=== PATIENT | male | born 1950 | race Caucasian/White ===

== ENCOUNTER → 2017-07-28 | Outpatient (CLI) | payer OTHER ==
[~2017-07-28] MED LIST: IOPAMIDOL (ISOVUE-300) 100 ML BTL ONE
== END ==
LOC: FIMAGING 17:06
PROVIDERS: ATTEND Internal Medicine Hematology & Oncology
DX: D37.2 Neoplasm of uncertain behavior of small intestine (principal); I81 Portal vein thrombosis
CPT/HCPCS: 71260; 74177; Q9967

== ENCOUNTER → 2017-08-04 | Outpatient (CLI) | payer OTHER | LOC: FIMAGING 09:43 → EDSTATUS 09:44 | PROVIDERS: ATTEND Surgery | DX: Z45.2 Encounter for adjustment and management of vascular access device (principal); C17.0 Malignant neoplasm of duodenum ==

== ENCOUNTER 2017-10-04 00:23 | Inpatient (IN) | payer OTHER ==
--- NOTE | 2017-10-04 00:43 | EDPHY ---
H & P Stated Complaint: N/V Time Seen by Provider: 10/04/17 00:43 HPI/ROS: HPI CHIEF COMPLAINT: Nausea and vomiting HISTORY OF PRESENT ILLNESS: This patient very pleasant 67-year-old male, he has a history of colon cancer status post partial colectomy, additionally he is currently undergoing treatment for duodenal cancer and getting chemotherapy. Dr. Víctor Dominguez is his oncologist. He presents emergency room with nausea vomiting this evening. He last received chemo over 2 and half weeks ago. He has not had a fever. He denies any chest pain or shortness of breath. He was able to eat dinner tonight however has had some vomiting since then. He tried taking Compazine at home multiple doses however would vomit them up. Additionally try to have small sips of water and continued to have vomiting. He states the 4th time he vomited was rather dark. He did not see any blood. He denies any significant abdominal pain chest pain or shortness of breath. He spoke with his oncologist was referred to the emergency room. Past Medical History: Colon cancer, duodenal cancer Past Surgical History: colon resection Social History: Denies daily use drugs alcohol tobacco. Family History: Noncontributory ROS REVIEW OF SYSTEMS: A comprehensive 10 point review of systems is otherwise negative aside from elements mentioned in the history of present illness. Exam Constitutional appears well nontoxic no acute distress, triage nursing summary reviewed, vital signs reviewed, awake/alert. Eyes normal conjunctivae and sclera, EOMI, PERRLA. HENT normal inspection, atraumatic, moist mucus membranes, no epistaxis, neck supple/ no meningismus, no raccoon eyes. Respiratory clear to auscultation bilaterally, normal breath sounds, no respiratory distress, no wheezing. Cardiovascular rate normal, regular rhythm, no murmur, no edema, distal pulses normal. Gastrointestinal soft, non-tender, no rebound, no guarding, normal bowel sounds, no distension, no pulsatile mass. Genitourinary no CVA tenderness. Musculoskeletal no midline vertebral tenderness, full range of motion, no calf swelling, no tenderness of extremities, no meningismus, good pulses, neurovascularly intact. Skin pink, warm, & dry, no rash, skin atraumatic. Neurologic awake, alert and oriented x 3, AAOx3, moves all 4 extremities equally, motor intact, sensory intact, CN II-XII intact, normal cerebellar, normal vision, normal speech. Psychiatric normal mood/affect. Heme/Lymph/Immune no lymphadenopathy. Differential Diagnosis: Includes but is not limited to in a particular order acute nausea vomiting leading to dehydration, electrolyte disturbance, gastric outlet obstruction, bowel obstruction, ileus, enteritis, acute infectious process Medical Decision Making: Plan for this patient IV establishment with blood draw , IV fluid bolus, IV Zofran for nausea, KUB low threshold for CT scan, and re- evaluate. Re-evaluation: CT scan abdomen pelvis with IV contrast shows a gastric outlet obstruction from this duodenal mass. Please see full dictation by Dr. Russ Germain for details. 0315: Updated patient. Patient's CT scan shows mostly gastric outlet obstruction. Will admit to the hospitalist service for gastric outlet obstruction. Will place NG tube. Spoke with Dr. Thomas who agrees to admit. 0358: NG tube was placed. 1400 cc of fluid was removed. Source: Patient - Personal History Current Tetanus/Diphtheria Vaccine: Yes Current Tetanus Diphtheria and Acellular Pertussis (TDAP): Yes - Medical/Surgical History Hx Asthma: No Hx Chronic Respiratory Disease: No Hx Diabetes: No Hx Cardiac Disease: No Hx Renal Disease: No Hx Cirrhosis: No Hx Alcoholism: No Hx HIV/AIDS: No Hx Splenectomy or Spleen Trauma: No Other PMH: Stomach CA, Colon CA - Social History Smoking Status: Former smoker Constitutional: Initial Vital Signs Temperature (C) 36.7 C 10/04/17 00:26 Heart Rate 90 10/04/17 00:26 Respiratory Rate 17 10/04/17 00:26 Blood Pressure 143/72 H 10/04/17 00:26 O2 Sat (%) 95 10/04/17 00:26 O2 Delivery Mode Room Air Allergies/Adverse Reactions: No Known Allergies Allergy (Unverified 10/04/17 00:33) Home Medications: Medication Instructions Recorded Loratadine 10 mg PO DAILY 10/04/17 Multivitamins W-Minerals [Thera M 1 each PO DAILY 10/04/17 Plus Tablet (*)] Medical Decision Making - Data Points Laboratory Results: Laboratory Results 10/04/17 00:55 10/04/17 00:55 Medications Given: Sodium Chloride (Ns) 1,000 mls @ 125 l/hr IV CONT MAURICIO Stop: 04/02/18 08:59 Last Admin: 10/04/17 19:40 Dose: 1,000 mls Lorazepam (Ativan Injection) 0.5 - 1 mg IVP Q8HRS PRN PRN Reason: Anxiety, Unable to Take PO Stop: 04/02/18 03:58 Last Admin: 10/04/17 22:39 Dose: 1 mg Discontinued Medications Sodium Chloride (Ns) 1,000 mls @ 0 mls/hr IV EDNOW ONE; Wide Open PRN Reason: Protocol Stop: 10/04/17 00:57 Last Admin: 10/04/17 01:10 Dose: 1,000 mls Ondansetron HCl (Zofran) 4 mg IVP EDNOW ONE Stop: 10/04/17 00:57 Last Admin: 10/04/17 01:10 Dose: 4 mg Departure - Departure Disposition: [facility] Acute Clinical Impression: Gastric outlet obstruction Condition: Fair
[2017-10-04] MEDS ORDERED: ONDANSETRON 4 MG/2 ML VIAL IVP ONE (00:56)
[2017-10-04] MEDS ORDERED: NS 1,000 ML IV ONE (00:56)
[2017-10-04 01:11] LABS: PLATELET COUNT 572 10^3/uL (150-400)
[2017-10-04] MEDS ORDERED: IOPAMIDOL (ISOVUE-300) 100 ML BTL ONE (02:25)
[2017-10-04] MEDS ORDERED: LORazepam 2 MG/ML INJ IVP PRN (03:59)
[2017-10-04] MEDS ORDERED: ONDANSETRON 4 MG/2 ML VIAL IVP PRN (03:59)
[2017-10-04] MEDS ORDERED: PROMETHAZINE HCL 25 MG/ML INJ IVP PRN (03:59)
[2017-10-04] MEDS ORDERED: ACETAMINOPHEN 325 MG TAB PO PRN (03:59)
[2017-10-04] MEDS ORDERED: NS W/ 20 KCl/L 1,000 ML IV SCH (08:45)
--- NOTE | 2017-10-04 12:11 | SOAPPROG ---
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 Immunohistochemistry showed MSH2 and MSH6 : Loss of expression (LOS). Mass at diagnosis was: 5.4 x 9.8 x 5.5 cm. Mass was seen surrounding second/third/fourth portion of Duodenum and molina-intestinal LN enlargement was noted on initial EGD. He has now had two doses of Pembrolizumab on 08/27 and 09/17, thus far w/ out toxicity. Now with SANTIAGO/SBO presentation, acutely. EGD on this admission would be useful to understand if he has permanent SANTIAGO that could/could not be dilated or may need percutaneous J-tube placement for caloric/fluid enteral support. D/W patient this AM. Will continue IVF hydration and supportive meds. Plan: See above discussion. 10/04/17 12:11 Subjective: Pt developed sudden onset of protracted emesis last evening, after routine solid food intake without distress over the prior 24-72 hours and over the past 2 months (+) since the diagnosis of his Duodenal Adenocarcinoma was diagnosed in June. He had a normal BM Wednesday AM, 10/03. Had been passing flatus until time of development of N/V last evening. He is feeling better this AM, since ER evaluation and placement of NGT Objective: Afebrile, VSS as noted here. Middle aged WM in NAD, alert, conversant and sitting upright in bed HEENT- anicteric, no oral lesions, NGT in position Neck - supple Chest- clear anteriorly and posteriorly CVS- RSR, no extra HS ABD- soft, NT, BS+ no mass/distention/rebound/ascites. No HSM. EXT- no edema, skin intact Vital Signs Temp Pulse Resp BP Pulse Ox 36.7 C 90 17 144/84 H 90 L 10/04/17 11:13 10/04/17 11:13 10/04/17 11:13 10/04/17 11:13 10/04/17 11:13 10/03/17 10/04/17 10/05/17 05:59 05:59 05:59 Output Total 350 Balance -350 ICD10 Worksheet Patient Problems: Problems Problem Status Onset Gastric outlet obstruction Acute
[2017-10-04] MEDS: NS 1,000 ML IV SCH ×2 (12:32→19:40)
--- NOTE | 2017-10-04 14:28 | ASMTCMCOM ---
CM Note CM Note Notes: Chart reviewed. 67 year old male admitted via ED with gastric outlet obstruction. History significant for colon cancer and partial colectomy. Needs TBD at this time. CM to follow. Plan: TBD Date Signed: 10/04/2017 02:27 PM Electronically Signed By:Edna Trejo RN
--- NOTE | 2017-10-04 14:41 | PDMN ---
Medical Necessity Medical necessity: MCG M370 vomiting: A-1 day: complete or partial gastrointestinal obstruction- poss gastric outlet obstruction- NG placed, pt with duodenal adenocarcinoma Dg 07/04, currently on chemo, with further eval and tx needed anticipate > 2 midnights.
--- NOTE | 2017-10-04 15:59 | GHP ---
[f rep st] HISTORY AND PHYSICAL DATE OF ADMISSION: 10/04/2017 IN-HOSPITAL CONSULTANTS: Dr. Castañeda, Oncology. OUTPATIENT ONCOLOGIST: Dr. Víctor Dominguez CHIEF COMPLAINT: Nausea and vomiting. HISTORY OF PRESENT ILLNESS: The patient is a pleasant 67-year-old gentleman with a past medical hist ory of colon cancer, status post partial colectomy several years ago, and a more recent diagnosis of duodenal cancer, currently under the care of Dr. Víctor Dominguez and receiving chemotherapy. He has re ceived 2 doses of chemotherapy thus far in his treatment courses. After eating dinner the evening of admission, he started to develop significant nausea and vomiting. He took several doses of Compazin e, but was unable to hold them down and hence came into the emergency room for additional investigati on. In the emergency room, he had a CT scan done of his abdomen, which showed moderate dilatation of the stomach and proximal duodenum to the 3rd portion, where there is interval decrease in size of heterog eneous mass and adjacent lymphadenopathy, but he is being admitted for further evaluation and treatme nt. He has an NG tube and has been comfortable since having this placed. PAST MEDICAL HISTORY: 1. History of colon cancer, status post partial colectomy in 2000. 2. 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 PAST SURGICAL HISTORY: Right hemicolectomy. MEDICATIONS: None. ALLERGIES: No known drug allergies. FAMILY HISTORY: His father has a history of colon cancer and his mother of old age. He also schroeder s a history of history of colon cancer in his brother. SOCIAL HISTORY: Patient is not . He has no children. He is not a smoker. He lives with his girlfriend. CODE STATUS: He is a full code status. REVIEW OF SYSTEMS: CONSTITUTIONAL: No complaints of any fevers or chills. ENT: No recent upper re spiratory illnesses. CARDIOVASCULAR: No complaints of any chest pains, palpitations, or syncopal ep isodes. RESPIRATORY: No complaints of shortness of breath or productive cough. GI: No diarrhea or bloody stools. No focal abdominal pain. : No report of any difficulty with urination. NEUROLOG IC: No complaints of any headaches or focal weakness. HEMATOLOGIC: No history of any deep vein thr ombosis or pulmonary embolism. PSYCHIATRIC: No history of anxiety or depression. ENDOCRINE: No he at intolerance or polyuria. SKIN: No new skin rashes. MUSCULOSKELETAL: No focal joint pains. PHYSICAL EXAMINATION: VITAL SIGNS: Temperature 36.7, blood pressure is 144/77, heart rate 86, respi rations 16, saturating 94% on room air. GENERAL: Patient appears comfortable. He is awake, alert, conversant, in no acute distress. HEENT: Extraocular movements appear intact. No scleral icterus i s noted. NECK: Supple. No adenopathy appreciated. No thyroid enlargement noted. CHEST: Clear on auscultation. Normal respiratory effort. HEART: Regular rate and rhythm. No murmurs noted. ABDO MEN: Nondistended, nontender with palpation. Bowel sounds are normal. No masses appreciable with p alpation. : No Chung catheter in place. EXTREMITIES: No significant pitting edema. NEUROLOGIC: Cranial n erves 2-12 appear grossly intact with 5/5 strength in all extremities LABORATORY/IMAGING: White blood cell count is 6, hemoglobin 11.9, platelets 572. Sodium 137, potass ium 4.1, chloride 97, bicarb 27, BUN 10, creatinine 0.7, glucose of 101. Lipase 75. Liver function tests within normal limits. Urinalysis shows 1+ ketones, but otherwise was negative. Imaging as detailed in the HPI. ASSESSMENT/PLAN: 1. Duodenal obstruction. The patient was found to have dilated small bowel in his stomach proximal to his duodenal mass. I have reviewed the case with Dr. Arambula and tentative plan is to perform a sten t placement at the area of the obstruction. This is tentatively been planned for 10/05/2017. Contin ue nasogastric to suction until that time. Continue intravenous fluids. 2. Anemia. Patient was found to have iron deficiency anemia on recent routine blood work, which led him to have a colonoscopy and endoscopy where his duodenal cancer was discovered. I would anticipat e resuming iron supplementation once he is able to tolerate a diet. 3. Duodenal cancer. The patient was found to have carcinoma of the ampulla of Vater. The patient h as been receiving pembrolizumab 200 mg every 3 weeks of which he has received 2 doses. I reviewed th e case this morning with Dr. Castañeda with Oncology who is also following along. 4. Deep venous thrombosis prophylaxis. Compression devices for now. Would anticipate heparin and L ovenox once procedure is complete. DISPOSITION: Recommend admission under inpatient status. /[id number]/MODL
[2017-10-05] MEDS ORDERED: LORazepam 2 MG/ML INJ IVP PRN (02:41)
[2017-10-05] MEDS: NS 1,000 ML IV SCH ×3 (02:56→23:29)
[2017-10-05] MEDS ORDERED: LR 1,000 ML IV ONE (07:49)
[2017-10-05] MEDS ORDERED: GLUCAGON HCL 1 MG VIAL ONE (07:55)
[2017-10-05] MEDS ORDERED: IOTHALAMATE MEG (CONRAY) 50 ML VIAL IV ONE ×2 (07:55→09:49)
--- NOTE | 2017-10-05 07:59 | PDANEPAE ---
ANE History of Present Illness EGD Stent ANE Past Medical History - Cardiovascular History Hx Hypertension: No Hx Arrhythmias: No Hx Chest Pain: No Hx Coronary Artery / Peripheral Vascular Disease: No Hx CHF / Valvular Disease: No Hx Palpitations: No - Pulmonary History Hx COPD: No Hx Asthma/Reactive Airway Disease: No Hx Recent Upper Respiratory Infection: No Hx Oxygen in Use at Home: No Hx Sleep Apnea: No Sleep Apnea Screening Result - Last Documented: Negative - Endocrine History Hx Diabetes: No Hypothyroid: No Hyperthyroid: No Obesity: no ANE Review of Systems Review of Systems: - Exercise capacity METS (RN): 4 METS ANE Patient History - Allergies Allergies/Adverse Reactions: No Known Allergies Allergy (Unverified 10/04/17 00:33) - Home Medications Home Medications: Loratadine 10 mg PO DAILY 10/04/17 [Last Taken Unknown] Multivitamins W-Minerals [Thera M Plus Tablet (*)] 1 each PO DAILY 10/04/17 [ Last Taken Unknown] - NPO status NPO Since - Liquids (Date): 10/03/17 NPO Since - Solids (Date): 10/03/17 - Anes Hx Anes Hx: no prior problems - Smoking Hx Smoking Status: Former smoker ANE Labs/Vital Signs - Labs Result Diagrams: 10/04/17 00:55 10/04/17 00:55 - Vital Signs Blood Pressure: 139/86 Heart Rate: 97 Respiratory Rate: 18 O2 Sat (%): 92 Height: 175.2 cm Weight: 64.2 kg ANE Physical Exam - Airway Neck exam: decreased ROM Mallampati Score: Class 2 Mouth exam: poor dentition - Pulmonary Pulmonary: no respiratory distress, no rales or rhonchi - Cardiovascular Cardiovascular: regular rate and rhythym, no murmur, rub, or gallop - ASA Status ASA Status: III ANE Anesthesia Plan Anesthesia Plan: general endotracheal anesthesia
[2017-10-05] MEDS ORDERED: PROPOFOL/EMULSION 500 MG/50 ML BOTTLE IV ONE (08:02)
[2017-10-05] MEDS ORDERED: fentaNYL 100 MCG/2 ML INJ ONE ×3 (08:03→09:56)
[2017-10-05] MEDS ORDERED: ROCURONIUM 50 MG/5 ML VIAL ONE (08:25)
[2017-10-05] MEDS ORDERED: ONDANSETRON 4 MG/2 ML VIAL ONE (08:25)
[2017-10-05] MEDS ORDERED: DEXAMETHASONE 4 MG/ML VIAL ONE (08:25)
--- NOTE | 2017-10-05 08:36 | GCON ---
[f rep st] CONSULTATION DATE OF CONSULTATION: 10/05/2017 CONSULTING PHYSICIAN: Dr. Nghia Rodriguez. REASON FOR CONSULTATION: Duodenal obstruction. CHIEF COMPLAINT: Nausea and vomiting. HISTORY OF PRESENT ILLNESS: The patient is a 67-year-old male with a past history of colon cancer, recently diagnosed ampullary/duodenal cancer, who presents for evaluation of nausea and vomiting. The patient had an upper endoscopy and colonoscopy performed by my partner, Dr. Martinez Paige on 07/12/2017 for iron-deficiency anemia. He was found to have a large obstructing mass in the second portion of the duodenum. He was unsure whether this mass was a primary duodenal cancer versus ampullary cancer versus pancreatic cancer invading into the duodenum. He has had multiple imaging studies since then with lymph node involvement. The patient states he was doing okay until the last several days when he had significant nausea and vomiting. He vomited approximately 3 times. He was unable to tolerate significant oral intake. He denies any alleviating factors. His symptoms are exacerbating by oral intake. He lost approximately 15 pounds in the last several months. He had a CT scan done which did reveal dilation of the stomach and the proximal duodenum. I am being asked to evaluate Jr in consultation by Dr. Rodriguez regarding his duodenal obstruction. PAST MEDICAL HISTORY: 1. Colon cancer-ascending colon with a right hemicolectomy performed in 2000. 2. 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 PAST SURGICAL HISTORY: Right hemicolectomy. ALLERGIES: NKDA. MEDICATIONS: Chemotherapy. SOCIAL HISTORY: No significant alcohol or tobacco use. FAMILY HISTORY: Positive colon cancer. REVIEW OF SYSTEMS: A 14-point comprehensive review of systems was asked. Pertinent positives and negatives per HPI. PHYSICAL EXAM: VITAL SIGNS: Blood pressure 139/86, temperature 36.8, heart rate 97, respiration 18. GENERAL: Awake, alert, oriented x3. No distress. HEENT: Anicteric sclerae. Moist mucosa. NECK: No JVD. CARDIOVASCULAR: Regular rhythm. Positive S1, S2. No murmurs or gallops appreciated. LUNGS: Clear to auscultation bilaterally. No wheezes, rales or rhonchi. ABDOMEN: Slightly distended. Positive bowel sounds. No guarding. No rebound. EXTREMITIES: No clubbing, cyanosis, or edema. NEUROLOGIC: 2 through 12 grossly intact. PSYCH: Normal affect. LYMPH: No lymphadenopathy. MUSCULOSKELETAL: No obvious joint effusions. BLOOD WORK: WBC 6.34, hemoglobin 11.9, hematocrit 38.1, platelets 572. Sodium 137, potassium 4.1, chloride 97, bicarb 27, BUN 10, creatinine 0.7, total bilirubin 0.6, AST 25, ALT 34, alkaline phosphatase 116. CT scan: Duodenal obstruction with dilation of the stomach, first and second portion of the duodenum. ASSESSMENT AND PLAN: 1. Nausea- with vomiting. CT scan consistent with duodenal obstruction. I suspect secondarily to duodenal/ampullary cancer. At this time, I recommend to proceed with EGD with duodenal stent placement and possibly endoscopic retrograde cholangiopancreatography. Due to the fact that duodenal stenting will hinder biliary access, I would recommend biliary metal stenting. This was discussed in great detail with the patient. The risk of infection, bleeding , perforation, sedation, and pancreatitis were all discussed. All questions answered. Informed consent was obtained. Thank you very much for this consultation. /[id number]/MODL MTDD
[2017-10-05] MEDS ORDERED: HYDROmorphONE/DILAUDID 2 MG/ML INJ IVP PRN (09:03)
[2017-10-05] MEDS ORDERED: fentaNYL 100 MCG/2 ML INJ IVP PRN (09:03)
[2017-10-05] MEDS ORDERED: ONDANSETRON 4 MG/2 ML VIAL IVP PRN (09:03)
[2017-10-05] MEDS ORDERED: NALOXONE HCL 0.4 MG/ML INJ IVP PRN (09:03)
[2017-10-05] MEDS ORDERED: PROPOFOL 200 MG/20 ML VIAL ONE ×2 (09:11→09:44)
[2017-10-05] MEDS ORDERED: levOFLOXACIN 500 MG/DEXTROSE/100 ML BAG IV ONE (09:27)
[2017-10-05] MEDS ORDERED: SUGAMMADEX SODIUM 200 MG/2 ML VIAL IVP ONE (10:06)
--- NOTE | 2017-10-05 10:39 | SOAPPROG ---
[facility] Progress Note Assessment/Plan: Assessment: Plan: 10/05/17 10:29 GI See dictated ERCP/EGD with stent placements report for details. ERCP performed and uncovered 10 x 60mm stent placed. + stone in GB. placement of 22 x 120mm stent across duodenal stricture. Technically challenging procedures due to significantly altered anatomy due to duodenal cancer. Meds: General. Levaquin 500mg EBL: Minimal Objective: Vital Signs Temp Pulse Resp BP Pulse Ox 36.8 C 97 18 139/86 H 92 10/05/17 07:42 10/05/17 07:58 10/05/17 07:58 10/05/17 07:58 10/05/17 07:58 10/04/17 10/05/17 10/06/17 05:59 05:59 05:59 Intake Total 1375 Output Total 2400 Balance -1025 ICD10 Worksheet Patient Problems: Problems Problem Status Onset Gastric outlet obstruction Acute
[2017-10-05] MEDS ORDERED: INDOMETHACIN 50 MG SUPP PR ONE (10:45)
--- NOTE | 2017-10-05 11:25 | SOAPPROG ---
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. Immunohistochemistry showed MSH2 and MSH6 : Loss of expression (LOS). Mass at diagnosis was: 5.4 x 9.8 x 5.5 cm. Mass was seen surrounding second/third/fourth portion of Duodenum and molina-intestinal LN enlargement was noted on initial EGD. He has now had two doses of Pembrolizumab on 08/27 and 09/17, thus far w/ out toxicity. Now with SANTIAGO/SBO presentation, acutely. EGD today noted , two stents placed, one in the area of duodenal stricture this AM. Will continue IVF hydration and supportive meds. Continue Levaquin. Plan: Post - stent monitoring. Minimize liquid intake until GI feels enteral intake is feasible, S/P duodenal stenting this AM. 10/05/17 11:23 Subjective: Pt somewhat sedated from procedure this AM. Voices no active sx. Objective: Conversant and in NAD VSS, afebrile HEENT- anicteric, no oral thrush Neck- supple Chest - clear CVS- RSR, no extra HS ABD- BS +, soft, nondistended, no rebound. EXT- minimal Leg edema, bilaterally, warm, well perfused. Vital Signs Temp Pulse Resp BP Pulse Ox 36.8 C 97 13 131/75 H 93 10/05/17 10:52 10/05/17 07:58 10/05/17 10:52 10/05/17 10:52 10/05/17 10:52 10/04/17 10/05/17 10/06/17 05:59 05:59 05:59 Intake Total 1375 1000 Output Total 2400 Balance -1025 1000 ICD10 Worksheet Patient Problems: Problems Problem Status Onset Gastric outlet obstruction Acute
--- NOTE | 2017-10-05 11:33 | GPN ---
[f rep st] PROCEDURE NOTE DATE OF PROCEDURE: 10/05/2017 PROCEDURE: Endoscopic retrograde cholangiopancreatography with biliary sphincterotomy, extraction of debris, and placement of a uncovered stent. INDICATIONS: The patient is a 67-year-old male with history of duodenal cancer who presents for biliary decompression. 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 CONSENT: Risks, benefits, and alternatives of the procedure were discussed in great detail with the patient. Risk of infection, bleeding, perforation, sedation, and pancreatitis were discussed. All questions answered. Informed consent obtained. MEDICATIONS: General anesthesia. Please see anesthesia record for details. Levaquin 500 mg IV x1. ESTIMATED BLOOD LOSS: Insignificant. ENDOSCOPIC RETROGRADE CHOLANGIOPANCREATOGRAPHY EXAMINATION: The Olympus duodenoscope was introduced into the mouth and advanced to the second portion of duodenum. A large obstructing mass was noted. The bile duct was eventually identified. Using a [employer] sphincterotome and a 0.035 inch wire, a wire was advanced into the common bile duct and intrahepatics after a few tries. This was a technically challenging procedure due to significant altered anatomy due to this large obstructing mass. An occlusion cholangiogram was performed and a distal CBD stricture was noted. There was adequate flow of bile with visualization of the entire biliary tree. I interpreted the images in real time. A limited biliary sphincterotomy performed and a balloon sweep was made with the removal of debris. A 10 x 60 uncovered stent was placed. Excess air was suctioned. The procedure was terminated. IMPRESSION: 1. Placement of a self-expanding metal stent. 2. Removal of debris. RECOMMENDATIONS: 1. Proceed with placement of duodenal stent.. /[id number]/MODL MTDD
--- NOTE | 2017-10-05 11:38 | GPN ---
[f rep st] PROCEDURE NOTE DATE OF PROCEDURE: 10/05/2017 PROCEDURE: Esophagogastroduodenoscopy with placement of a uncovered self- expanding metal stent. INDICATIONS: The patient is a 67-year-old male with duodenal cancer who presents for duodenal decompression. CONSENT: Risks, benefits, and alternatives of the procedure were discussed in great detail with the patient. Risk of infection, bleeding, perforation and sedation were discussed. All questions answered. Informed consent obtained. MEDICATION: General anesthesia. Please see anesthesia record for details. ESOPHAGOGASTRODUODENOSCOPY EXAMINATION: The Olympus upper endoscope was introduced into the mouth and advanced to the esophagus. The proximal, mid, and distal esophagus were grossly normal. The stomach was entered and closely examined, including retroflexed views of the angularis, cardia and fundus. A large amount of fluid was seen in the stomach and was suctioned. The duodenal bulb was entered and was normal. In the 2nd portion of duodenum a large obstructing mass was seen. This mass was circumferential and an opening was not visualized into the 3rd portion. Using a 0.035 inch long wire, multiple attempts were made to place a wire into the 3rd portion of duodenum with gentle probing. Eventually the wire was advanced through the stricture. Contrast was injected through a balloon catheter and it was confirmed that we were in the 3rd portion of the duodenum. An 18 mm extraction balloon was inflated and was pulled back to the distal part of the stricture. The stricture was approximately 5 cm in length. A 22 x 120 mm stent was placed across the stricture with the proximal end being approximately 2 cm into the stomach. IMPRESSION: Successful placement of a duodenal stent. RECOMMENDATIONS: Okay to start clear liquid diet later today/tomorrow. /[id number]/MODL MTDD
--- NOTE | 2017-10-05 12:39 | ASMTCMCOM ---
CM Note CM Note Notes: Reviewed chart and discussed w/RN. Pt was independant prior to admit. He had duodenal stent place this AM. Anticipate dc home without CM needs where he lives w/life partner. CM available if needs arise. Date Signed: 10/05/2017 12:38 PM Electronically Signed By:Junie Velazquez RN
[2017-10-05] MEDS ORDERED: levOFLOXACIN 500 MG/DEXTROSE 100 ML IV ONE (12:45)
--- NOTE | 2017-10-05 13:06 | HOSPPROG ---
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 Duodenal obstruction - secondary to duodenal cancer. S/P ERCP and EGD with duodenal and CBD stent placed today by Dr. Arambula. -cont Levaquin 7-10 days post-intervention -trial sips of clears tonight Duodenal / ampulla of vater cancer - has received 2 doses of Pembrolizumab without toxicity (08/27 and 09/17) -cont chemo per onc Anemia - chronic, no e/o active bleeding -resume oral iron when able to take po Full code Dispo - cont inpt Subjective: Pt is sleepy post-procedure. Denies pain, nausea or vomiting. No fevers. A bit of abdominal distention, but no pain. He is currently NPO. Objective: Vital Signs Temp Pulse Resp BP Pulse Ox 36.4 C 84 16 111/81 H 95 10/05/17 11:45 10/05/17 11:45 10/05/17 11:45 10/05/17 11:45 10/05/17 11:45 10/04/17 10/05/17 10/06/17 05:59 05:59 05:59 Intake Total 1375 1000 Output Total 2400 Balance -1025 1000 - Physical Exam Constitutional: no apparent distress Eyes: PERRL Ears, Nose, Mouth, Throat: moist mucous membranes Cardiovascular: regular rate and rhythym Respiratory: no respiratory distress, clear to auscultation Gastrointestinal: other (soft, mild-mod distention post-egd, no r/r/g, +BS) Skin: warm Musculoskeletal: full muscle strength Neurologic: AAOx3 Psychiatric: interacting appropriately ICD10 Worksheet Patient Problems: Problems Problem Status Onset Gastric outlet obstruction Acute
[2017-10-06] MEDS: NS 1,000 ML IV SCH ×2 (07:30→16:41)
--- NOTE | 2017-10-06 07:56 | SOAPPROG ---
[facility] Progress Note Assessment/Plan: Assessment: Plan: 10/05/17 10:29 GI See dictated ERCP/EGD with stent placements report for details. ERCP performed and uncovered 10 x 60mm stent placed. + stone in GB. placement of 22 x 120mm stent across duodenal stricture. Technically challenging procedures due to significantly altered anatomy due to duodenal cancer. Meds: General. Levaquin 500mg EBL: Minimal 10/06/17 07:54 A/P 1. Duodenal obstruction-s/p stenting. No obvious complication of procedure. Will start diet. Ok to advance later today if tolerating. Subjective: cc: Follow up duodenal obstruction No complaints. Objective: Vital Signs Temp Pulse Resp BP Pulse Ox 36.7 C 71 17 120/63 96 10/06/17 07:40 10/06/17 07:40 10/06/17 07:40 10/06/17 07:40 10/06/17 07:40 10/05/17 10/06/17 10/07/17 05:59 05:59 05:59 Intake Total 1375 1846 Output Total 2400 Balance -1025 1846 Physical Exam - Physical Exam General Appearance: alert, no apparent distress Respiratory: lungs clear, normal breath sounds Cardiac/Chest: regular rate, rhythm Abdomen: non-tender, soft, No distended, No guarding, No rebound Skin: normal color, warm/dry Neuro/Psych: alert, normal mood/affect, oriented x 3 ICD10 Worksheet Patient Problems: Problems Problem Status Onset Gastric outlet obstruction Acute
[2017-10-06] MEDS: levOFLOXACIN 500 MG/DEXTROSE 100 ML IV SCH (09:32)
[2017-10-06] MEDS: ENOXAPARIN 40 MG/0.4 ML SYR SC SCH (09:32)
--- NOTE | 2017-10-06 12:29 | SOAPPROG ---
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 Immunohistochemistry showed MSH2 and MSH6 : Loss of expression (LOS). Mass at diagnosis was: 5.4 x 9.8 x 5.5 cm. Mass was seen surrounding second/third/fourth portion of Duodenum and molina-intestinal LN enlargement was noted on initial EGD. He has now had two doses of Pembrolizumab on 08/27 and 09/17, thus far w/ out toxicity. Now with SANTIAGO/SBO presentation, acutely. EGD today noted , two stents placed, one in the area of duodenal stricture on Wednesday, 10/05. Will continue IVF hydration and supportive meds. Continue Levaquin. Tolerating clear liquid diet well. Plan: Post - stent monitoring. Advance diet as per GI. Discharge likely in next 24-48 hours, if progress made. 10/06/17 12:28 Subjective: Tolerating clear liquid diet thus far without difficulty. No eructations, heartburn, N/V or dry heaves. Has + flatus Objective: VSS, Afebrile as noted here. HEENT- anicteric, no oral thrush Neck- supple Chest- clear CVS- RSR, no extra HS ABD- soft, NT, BS+ nondistended. EXT- no edema. Vital Signs Temp Pulse Resp BP Pulse Ox 36.6 C 79 17 115/67 90 L 10/06/17 11:54 10/06/17 11:54 10/06/17 11:54 10/06/17 11:54 10/06/17 11:54 10/05/17 10/06/17 10/07/17 05:59 05:59 05:59 Intake Total 1375 1846 100 Output Total 2400 225 Balance -1025 1846 -125 ICD10 Worksheet Patient Problems: Problems Problem Status Onset Gastric outlet obstruction Acute
[2017-10-06 13:24] LABS: PLATELET COUNT 332 10^3/uL (150-400)
--- NOTE | 2017-10-06 14:12 | HOSPPROG ---
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 Duodenal obstruction - secondary to duodenal cancer. S/P ERCP and EGD with duodenal and CBD stent placed 10/[address] Arambula. -cont Levaquin 7 days post-intervention -advance diet per GI recs Duodenal / ampulla of vater cancer - has received 2 doses of Pembrolizumab without toxicity (08/27 and 09/17) -cont chemo per onc, d/w Dr. Castañeda Anemia - chronic, no e/o active bleeding -resume oral iron when able to take po Full code Dispo - cont inpt, home in 1-2 days if continues to do well Subjective: Pt doing well. Had 2 loose, dark, but not black or melanotic, stools today. Denies BRBPR. No N/V. No abdominal pain. Tolerating clears. Objective: Vital Signs Temp Pulse Resp BP Pulse Ox 36.6 C 79 17 115/67 90 L 10/06/17 11:54 10/06/17 11:54 10/06/17 11:54 10/06/17 11:54 10/06/17 11:54 Laboratory Results 10/06/17 13:15 10/06/17 13:15 10/05/17 10/06/17 10/07/17 05:59 05:59 05:59 Intake Total 1375 1846 100 Output Total 2400 225 Balance -1025 1846 -125 - Physical Exam Constitutional: no apparent distress Eyes: PERRL Ears, Nose, Mouth, Throat: moist mucous membranes Cardiovascular: regular rate and rhythym Respiratory: no respiratory distress, clear to auscultation Gastrointestinal: normoactive bowel sounds, soft, non-tender abdomen Skin: warm Musculoskeletal: full muscle strength Neurologic: AAOx3 Psychiatric: interacting appropriately ICD10 Worksheet Patient Problems: Problems Problem Status Onset Gastric outlet obstruction Acute
[2017-10-07] MEDS: NS 1,000 ML IV SCH ×2 (00:09→08:04)
[2017-10-07] MEDS: levOFLOXACIN 500 MG/DEXTROSE 100 ML IV SCH (08:03)
[2017-10-07] MEDS: ENOXAPARIN 40 MG/0.4 ML SYR SC SCH (09:06)
--- NOTE | 2017-10-07 12:29 | ASMTLACE ---
LACE Length of stay for Answers: 3 days current admission Acuity / Level of Answers: Yes Care: Did the patient have an inpatient admission? Comorbidities - select Answers: Any tumor (including all that apply lymphoma or leukemia) # of Emergency department Answers: 1-2 visits in the last 6 months Score: 9 Date Signed: 10/04/2017 02:24 PM Electronically Signed By:Edna Trejo RN
--- NOTE | 2017-10-07 12:30 | ASMTCMCOM ---
CM Note CM Note Notes: Patient medically cleared for discharge. No needs identified. Case Management available should need arise. Plan: Home with family support Date Signed: 10/07/2017 12:30 PM Electronically Signed By:Edna Trejo RN
--- NOTE | 2017-10-07 13:42 | SOAPPROG ---
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 Immunohistochemistry showed MSH2 and MSH6 : Loss of expression (LOS). Mass at diagnosis was: 5.4 x 9.8 x 5.5 cm. Mass was seen surrounding second/third/fourth portion of Duodenum and molina-intestinal LN enlargement was noted on initial EGD. He has now had two doses of Pembrolizumab on 08/27 and 09/17, thus far w/ out toxicity. Now with SANTIAGO/SBO presentation, acutely. EGD today noted , two stents placed, one in the area of duodenal stricture on Wednesday, 10/05. Continue Levaquin po for another 5 days. D/W patient and sent electronic RX to his N[facility] by [facility] in [facility]. Tolerating full liquid diet well. Plan: Post - stent monitoring. Advance diet as per GI. Discharge likely today, 10/07. Levaquin another 5 days, po RX. sent. Follow up at [facility] tomorrow. 10/07/17 13:40 Subjective: Tolerating full liquid diet w/out distress or N/V. Had solid BM in past 24 hours. No GI sx. Objective: Afebrile, VSS as noted here. HEENT- anicteric no oral thrush Neck- supple Chest- clear, CVS-RSR, no extra HS ABD- soft, NT, BS+ nondistended EXT- no edema, skin intact Labs: Hgb 9.5 Vital Signs Temp Pulse Resp BP Pulse Ox 36.7 C 87 18 145/82 H 91 L 10/07/17 12:00 10/07/17 12:00 10/07/17 12:00 10/07/17 12:00 10/07/17 12:00 Laboratory Results 10/07/17 06:15 10/06/17 13:15 10/06/17 10/07/17 10/08/17 05:59 05:59 05:59 Intake Total 1846 3350 150 Output Total 1300 1150 Balance 1846 0 -1000 ICD10 Worksheet Patient Problems: Problems Problem Status Onset Gastric outlet obstruction Acute
[2017-10-07] MEDS ORDERED: oxyCODONE IR 5 MG TAB PO PRN (14:51)
--- NOTE | 2017-10-07 14:53 | HOSPPROG ---
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 Duodenal obstruction - secondary to duodenal cancer. S/P ERCP and EGD with duodenal and CBD stent placed 10/[address] Arambula. Increased pain this afternoon, rather sudden. -check cbc, lipase and kub/upright plan film to r/o free air ABD film shows free air under diaphragm (personally reviwed and interp). Discussed with Dr. Arambula and Dr. Martin, who does not feel he is a surgical candidate. STAT CT abd / pelvis ordered, +pneumoperitoneum. Surgery consulting , but pt with stable VS, no sepsis physiology at this time. Will broaden atbx to Zosyn and Micafungin -NPO for now -add PPI Duodenal / ampulla of vater cancer - has received 2 doses of Pembrolizumab without toxicity (08/27 and 09/17) -cont chemo per onc, d/w Dr. Castañeda Anemia - chronic, no e/o active bleeding, but ongoing reports of dark, sometimes watery stools -c diff neg -cont to trend h&h -resume oral iron when able to take po Full code Dispo - cont inpt Subjective: PT was doing quite well, tolerating full diet and planned to discharge home. However, prior to d/c he developed sudden epigastric pain. No fevers. No N/V. pain comes in episodes of stabbing sensations. Objective: Vital Signs Temp Pulse Resp BP Pulse Ox 36.7 C 87 18 145/82 H 91 L 10/07/17 12:00 10/07/17 12:00 10/07/17 12:00 10/07/17 12:00 10/07/17 12:00 Laboratory Results 10/07/17 06:15 10/06/17 13:15 10/06/17 10/07/17 10/08/17 05:59 05:59 05:59 Intake Total 1846 3350 150 Output Total 1300 1150 Balance 1846 2049 -999 - Physical Exam Constitutional: no apparent distress Eyes: PERRL Ears, Nose, Mouth, Throat: moist mucous membranes Cardiovascular: regular rate and rhythym Respiratory: no respiratory distress, clear to auscultation Gastrointestinal: other (soft, nd, +TTP, no r/r/g, +BS) Skin: warm Musculoskeletal: full muscle strength Neurologic: AAOx3 Psychiatric: interacting appropriately ICD10 Worksheet Patient Problems: Problems Problem Status Onset Gastric outlet obstruction Acute
[2017-10-07 15:11] LABS: PLATELET COUNT 379 10^3/uL (150-400)
[2017-10-07] MEDS: HYDROmorphONE/DILAUDID 1 MG/ML INJ IVP PRN (15:32)
--- NOTE | 2017-10-07 15:47 | ASMTCMCOM ---
CM Note CM Note Notes: Discharge cancelled. Stat tesing pending. CM to follow. Date Signed: 10/07/2017 03:46 PM Electronically Signed By:Edna Trejo RN
--- NOTE | 2017-10-07 16:38 | SOAPPROG ---
[facility] Progress Note Assessment/Plan: Assessment: Plan: 10/05/17 10:29 GI See dictated ERCP/EGD with stent placements report for details. ERCP performed and uncovered 10 x 60mm stent placed. + stone in GB. placement of 22 x 120mm stent across duodenal stricture. Technically challenging procedures due to significantly altered anatomy due to duodenal cancer. Meds: General. Levaquin 500mg EBL: Minimal 10/06/17 07:54 A/P 1. Duodenal obstruction-s/p stenting. No obvious complication of procedure. Will start diet. Ok to advance later today if tolerating. 10/07/17 16:35 A/P 1. Duodenal obstruction- s/p stent. Doing well until about to be discharged . Complaining of increasing pain. Will check CT scan with gastrografin stat. 10/07/17 16:52 Subjective: cc: Follow up duodenal obstruction Just had an episode of epigastric pain for the last hour. 10 severity. Objective: Vital Signs Temp Pulse Resp BP Pulse Ox 36.7 C 87 18 145/82 H 91 L 10/07/17 12:00 10/07/17 12:00 10/07/17 12:00 10/07/17 12:00 10/07/17 12:00 Laboratory Results 10/07/17 15:00 10/06/17 13:15 10/06/17 10/07/17 10/08/17 05:59 05:59 05:59 Intake Total 1846 3350 150 Output Total 1300 1150 Balance 1846 2050 -1000 Physical Exam - Physical Exam General Appearance: alert, no apparent distress EENT: No scleral icterus (R), No scleral icterus (L) Respiratory: lungs clear, normal breath sounds Cardiac/Chest: regular rate, rhythm, No diastolic murmur, No systolic murmur Abdomen: soft, distended (slight), No non-tender ( tenderness in epigastrium), No guarding, No rebound Skin: normal color, warm/dry Neuro/Psych: normal mood/affect, oriented x 3 ICD10 Worksheet Patient Problems: Problems Problem Status Onset Gastric outlet obstruction Acute
[2017-10-07] MEDS ORDERED: IOPAMIDOL (ISOVUE-300) 100 ML BTL ONE (16:48)
[2017-10-07] MEDS: PANTOPRAZOLE SODIUM 40 MG VIAL IVP SCH (17:09)
[2017-10-07] MEDS: PIPERACILLIN/TAZO 4.5 GM/DEX 100 ML IV SCH (18:37)
[2017-10-07] MEDS: MICAFUNGIN NA 100 MG in NS 100 ML IV SCH (19:26)
--- NOTE | 2017-10-07 19:35 | GCON ---
[f rep st] CONSULTATION CONSULTATION NOTE REFERRING PHYSICIAN: Kim Jacobs MD HISTORY: The patient is a 67-year-old white male who underwent surgical treatment many years ago by Dr. Natanael Lynch for colon cancer. At a routine followup examination early this year he was found to have very low iron studies prompting both lower and upper endoscopy. At that time, he was found to have a mass in the duodenum. It was unclear whether this was a primary duodenal cancer , a cancer of the ampulla of Vater, or a metastatic colon cancer. I have been unable to locate the biopsy results, but as I understand it, it is a primary duodenal cancer. He has had 2 treatments with Keytruda which has resulted in the shrinkage of his mass from 9.8 x 5.4 cm to 6 x 3.5 cm. Over the weekend, he had a patel spread on crostini. Within the hour, he was vomiting. He states he did chew well. He was admitted to the hospital, studied and a duodenal stent was placed to complement his prior biliary stent. As of noon today he had the onset of severe epigastric pain. CT scan (with oral and IV contrast) did show free air, but with contrast did not show any evidence of leakage. His vital signs have remained stable, specifically, his temperature is stable. His heart rate has been stable. His pressure is up slightly. His white count has remained stable thus far. There is no rebound. PHYSICAL EXAMINATION: He does not have signs of an acute abdomen. He does have hypoactive bowel sounds. He is not hungry. He does not have any point tenderness with cough. IMPRESSION: Etiology of the free air remains unclear. Obviously, there is not a gross perforation, but perhaps a microperforation which provided the leak of the air. I agree with recommendations to continue IV antibiotics, to hold him n.p.o., and to study him further in the next several days. Followup laboratories will be obtained for CBC, complete metabolic profile, lipase, and a pre-albumin. Note is made he has not lost weight over the interval and in fact is the same weight he was last year at this time. The reason for the pre-albumin level is to help gauge his metabolic state for surgery if it becomes necessary. At this point, I think a noninterventional approach is most appropriate, but I will follow him closely with you. I have explained this to the patient and he understands. /[id number]/MODL MTDD
[2017-10-08] MEDS: PIPERACILLIN/TAZO 4.5 GM/DEX 100 ML IV SCH ×4 (00:10→18:01)
[2017-10-08] MEDS: HYDROmorphONE/DILAUDID 1 MG/ML INJ IVP PRN (00:10)
[2017-10-08 05:01] LABS: PLATELET COUNT 362 10^3/uL (150-400)
[2017-10-08] MEDS ORDERED: PROTOCOL POTASSIUM 1 DOSE MISC PRN (07:00)
[2017-10-08] MEDS ORDERED: HYDROmorphONE/DILAUDID 1 MG/ML INJ IVP PRN (07:02)
[2017-10-08] MEDS ORDERED: POTASSIUM Cl (KCl) 100 ML IV SCH (07:57)
[2017-10-08] MEDS: ENOXAPARIN 40 MG/0.4 ML SYR SC SCH ×2 (08:21→08:27)
[2017-10-08] MEDS: PANTOPRAZOLE SODIUM 40 MG VIAL IVP SCH (08:21)
[2017-10-08] MEDS: D5W NS W/ 20 KCl/L 1,000 ML IV SCH (08:21)
[2017-10-08] MEDS: POTASSIUM Cl (KCl) 10 MEQ in NS 100 ML IV SCH ×4 (08:24→11:46)
--- NOTE | 2017-10-08 09:17 | SOAPPROG ---
SOAP Progress Note Assessment/Plan: UBALDO#5 10/08/2017 Assessment: Stable/improved. Afebrile He is +/- hungry, he is passing flatus, Pain stable. No peritoneal signs. WBC stable. Note Lipase up. Note that nutrition is poor with pre-albumin at 13 Lipase up. Possibly the air was secondary to stent placement and the pain was due to pancreatitis. Plan: Although nutrition poor would not feed yet. Agree with plan to formally test continuity with SBFT [rior to feeding but might consider delaying at least a day since we are not pushed to make an acute decision today. 10/08/17 09:18 Subjective: pain stable passing flatus and stool Objective: Vital Signs Temp Pulse Resp BP Pulse Ox 36.9 C 80 17 132/70 H 93 10/08/17 08:05 10/08/17 08:05 10/08/17 08:05 10/08/17 08:05 10/08/17 08:05 Laboratory Results 10/08/17 04:45 10/08/17 04:45 10/07/17 10/08/17 10/09/17 05:59 05:59 05:59 Intake Total 3350 750 Output Total 1300 1150 Balance 2050 -400 - Time Spent With Patient Time Spent With Patient: 15 Physical Exam - Physical Exam General Appearance: alert, no apparent distress Abdomen: normal bowel sounds, non-tender, soft, other (no signs of an acute abdomen or obstruction) Male Genitalia: deferred Rectal: deferred ICD10 Worksheet Patient Problems: Problems Problem Status Onset Gastric outlet obstruction Acute
[2017-10-08] MEDS: MICAFUNGIN NA 100 MG in NS 100 ML IV SCH (09:29)
--- NOTE | 2017-10-08 13:18 | HOSPPROG ---
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 Duodenal obstruction - secondary to duodenal cancer. S/P ERCP and EGD with duodenal and CBD stent placed 10/[address] Arambula. Has since developed pain with pneumoperitoneum. -Cont NPO Pneumoperitoneum - suspect microperforation from stent / duodenal cancer, though no source of perf seen on CT (personally reviewed / interpreted and reviewed with radiology). No sepsis and remained stable overnight. -atbx broadened to Zosyn plus Micafungin, discussed with ID -discussed with Dr. Arambula, defer SBFT for now given clinical improvement -NPO for bowel rest, consider trial of clears in 2-3 days vs more prolonged NPO status with TPN -appreciate surgery following, nonoperative management planned at this time, discussed with Dr. Martin Mild elevation of lipase - discussed with GI, he does not meet criteria for pancreatitis -follow Duodenal cancer - has received 2 doses of Pembrolizumab without toxicity (08/27 and 09/17) -chemo per onc, d/w Dr. Castañeda Anemia - chronic, no e/o active bleeding -resume oral iron when able to take po Full code Dispo - cont inpt Subjective: Pt feels much better today. abdominal pain mostly resolved. No fevers/chills overnight. No N/V. Remains NPO. No CP or SOB. Objective: Vital Signs Temp Pulse Resp BP Pulse Ox 36.8 C 73 16 158/82 H 93 10/08/17 12:30 10/08/17 12:30 10/08/17 12:30 10/08/17 12:30 10/08/17 12:30 Laboratory Results 10/08/17 04:45 10/08/17 04:45 10/07/17 10/08/17 10/09/17 05:59 05:59 05:59 Intake Total 3350 750 Output Total 1300 1150 350 Balance 2050 -400 -350 - Physical Exam Constitutional: no apparent distress Eyes: PERRL Ears, Nose, Mouth, Throat: moist mucous membranes Cardiovascular: regular rate and rhythym Respiratory: no respiratory distress, clear to auscultation Gastrointestinal: normoactive bowel sounds, soft, non-tender abdomen Skin: warm Musculoskeletal: full muscle strength Neurologic: AAOx3 Psychiatric: interacting appropriately ICD10 Worksheet Patient Problems: Problems Problem Status Onset Gastric outlet obstruction Acute
--- NOTE | 2017-10-08 13:35 | ASMTCMCOM ---
CM Note CM Note Notes: Chart reviewed. Patient developed complications s/p treatment for gastric outlet obstruction. DC plan unclear at this point. Previously cleared per PT to dc home independently, CM to follow. Plan: TBD Date Signed: 10/08/2017 01:34 PM Electronically Signed By:Edna Trejo RN
--- NOTE | 2017-10-08 13:51 | SOAPPROG ---
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 Immunohistochemistry showed MSH2 and MSH6 : Loss of expression (LOS). Mass at diagnosis was: 5.4 x 9.8 x 5.5 cm. Mass was seen surrounding second/third/fourth portion of Duodenum and molina-intestinal LN enlargement was noted on initial EGD. He has now had two doses of Pembrolizumab on 08/27 and 09/17, thus far w/ out toxicity. Now with SANTIAGO/SBO presentation, acutely. EGD noted , two stents placed, one in the area of duodenal stricture on Wednesday, 10/05. 2.) Pneumoperitoneum- developed late afternoon. Appreciate GI/Surgery/ Hospitalist interventions. Now on Micafungin + Zosyn and NPO. Advice for SBFT before starting diet- tomorrow noted. Pt's symptoms and exams are quite benign at this time. Pt aware of this situation. At this point, he is doing well with antibiotic coverage and NPO status. 3.) Elevated lipase to suggest occult Pancreatitis- on gut rest now. Plan: See above discussion. Continue ABX and observe VS and Sx. and Labs. 3:40 10/08/17 13:51 Subjective: Feels well and without symptoms of sepsis or peritonitis whatsoever. Has walked the halls and feeling well. Still has had some flatus and BM. No N/V or dry heaves. No resp. sx. Objective: Looks well. in NAD VSS,afebrile as noted here. HEENT- anicteric, no oral lesions, Neck- supple Chest- clear CVS- RSR, no extra HS ABD- nontender,nondistended,BS+, no rebound or guarding. EXT- no edema, skin warm and dry. Labs as noted here Vital Signs Temp Pulse Resp BP Pulse Ox 36.8 C 73 16 158/82 H 93 10/08/17 12:30 10/08/17 12:30 10/08/17 12:30 10/08/17 12:30 10/08/17 12:30 Laboratory Results 10/08/17 04:45 10/08/17 04:45 10/07/17 10/08/17 10/09/17 05:59 05:59 05:59 Intake Total 3350 750 Output Total 1300 1150 350 Balance 2049400 -350 ICD10 Worksheet Patient Problems: Problems Problem Status Onset Gastric outlet obstruction Acute
[2017-10-08 14:26] LABS: PLATELET COUNT 344 10^3/uL (150-400)
--- NOTE | 2017-10-08 16:31 | SOAPPROG ---
[facility] Progress Note Assessment/Plan: Assessment: Plan: 10/05/17 10:29 GI See dictated ERCP/EGD with stent placements report for details. ERCP performed and uncovered 10 x 60mm stent placed. + stone in GB. placement of 22 x 120mm stent across duodenal stricture. Technically challenging procedures due to significantly altered anatomy due to duodenal cancer. Meds: General. Levaquin 500mg EBL: Minimal 10/06/17 07:54 A/P 1. Duodenal obstruction-s/p stenting. No obvious complication of procedure. Will start diet. Ok to advance later today if tolerating. 10/07/17 16:35 A/P 1. Duodenal obstruction- s/p stent. Doing well until about to be discharged . Complaining of increasing pain. Will check CT scan with gastrografin stat. 10/07/17 16:52 10/08/17 16:27 A/P 1. Duodenal obstruction- secondary to cancer. High grade obstruction. CBD and duodenal stenting performed. Did well until yesterday, when had sudden episode of pain. Xray and CT revealed pneumoperitoneum. Dye flows through stent and no extravasation of contrast. Clinically doing well now with no significant pain or fevers. Microperforation? Recommend to continue NPO and antibiotics. Continue conservative care. Hopefully will continue to improve. Subjective: cc: Follow up on pneumoperitoneum No complaints. Denies any abdominal pain or fevers. Objective: Vital Signs Temp Pulse Resp BP Pulse Ox 36.9 C 76 16 141/84 H 95 10/08/17 16:10 10/08/17 16:10 10/08/17 16:10 10/08/17 16:10 10/08/17 16:10 Laboratory Results 10/08/17 14:12 10/08/17 14:12 10/07/17 10/08/17 10/09/17 05:59 05:59 05:59 Intake Total 3350 750 Output Total 1300 1150 350 Balance 2050 -400 -350 Physical Exam - Physical Exam General Appearance: alert, no apparent distress EENT: No scleral icterus (R), No scleral icterus (L) Respiratory: lungs clear, normal breath sounds, No rales, No rhonchi Cardiac/Chest: regular rate, rhythm Abdomen: normal bowel sounds, non-tender, soft Skin: normal color, warm/dry Neuro/Psych: no motor/sensory deficits, normal mood/affect, oriented x 3 ICD10 Worksheet Patient Problems: Problems Problem Status Onset Gastric outlet obstruction Acute
[2017-10-09] MEDS: PIPERACILLIN/TAZO 4.5 GM/DEX 100 ML IV SCH ×5 (00:44→23:24)
[2017-10-09] MEDS: D5W NS W/ 20 KCl/L 1,000 ML IV SCH ×2 (00:44→03:38)
[2017-10-09] MEDS ORDERED: POTASSIUM CL 10 MEQ TAB PO ONE (03:48)
[2017-10-09] MEDS: POTASSIUM Cl (KCl) 100 ML IV SCH ×5 (04:23→10:13)
[2017-10-09 06:58] LABS: PLATELET COUNT 375 10^3/uL (150-400)
[2017-10-09] MEDS: PANTOPRAZOLE SODIUM 40 MG VIAL IVP SCH (08:39)
[2017-10-09] MEDS: MICAFUNGIN NA 100 MG in NS 100 ML IV SCH (08:39)
[2017-10-09] MEDS: ENOXAPARIN 40 MG/0.4 ML SYR SC SCH (08:39)
--- NOTE | 2017-10-09 11:18 | SOAPPROG ---
SOAP Progress Note Assessment/Plan: PAD#5 10/08/2017 Assessment: Stable/improved. Afebrile He is +/- hungry, he is passing flatus, Pain stable. No peritoneal signs. WBC stable. Note Lipase up. Note that nutrition is poor with pre-albumin at 13 Lipase up. Possibly the air was secondary to stent placement and the pain was due to pancreatitis. Plan: Although nutrition poor would not feed yet. Agree with plan to formally test continuity with SBFT [rior to feeding but might consider delaying at least a day since we are not pushed to make an acute decision today. PAD#6 10/09/17 11:11 Assessment: Stable, reports flatus, appetite has partially returned Lipase continues to resolve WBC continues stable Plan: SBFT today, If no issues are identified, may start clear liquids. If issues are noted, will need to consider alternate forms of nutrition. Subjective: my pain has not changed Objective: Vital Signs Temp Pulse Resp BP Pulse Ox 36.7 C 74 16 150/84 H 93 10/09/17 08:00 10/09/17 08:00 10/09/17 08:00 10/09/17 08:00 10/09/17 08:00 Laboratory Results 10/09/17 06:30 10/09/17 06:30 10/08/17 10/09/17 10/10/17 05:59 05:59 05:59 Intake Total 750 1520 Output Total 1150 1750 Balance -400 -230 - Time Spent With Patient Time Spent With Patient: 15 - Pending Discharge Pending Discharge Within 24 Hours: No Pending Discharge Within 48 Hours: No Physical Exam - Physical Exam General Appearance: alert, no apparent distress Respiratory: chest non-tender, lungs clear, normal breath sounds Cardiac/Chest: regular rate, rhythm Abdomen: normal bowel sounds, non-tender, soft Male Genitalia: deferred Rectal: deferred Back: Normal inspection Neuro/Psych: no motor/sensory deficits, alert, normal mood/affect, oriented x 3 ICD10 Worksheet Patient Problems: Problems Problem Status Onset Gastric outlet obstruction Acute
--- NOTE | 2017-10-09 11:28 | HOSPPROG ---
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 He underwent ERCP for CBD stent placement and EGD for duodenal stent placement on 10/[address] Arambula. Subsequently he had abdominal pain and pneumoperitoneum. 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 Anemia, chronic, sta ble - likely 2/2 chronic inflammation from cancer and from cancer drug Glossitis - possibly benign geographic tongue but also may be 2/2 cancer drug -Discussed case w/ Gen Surg Dr. Martin - pt does not need surgery, he is to stop following patient. -SB follow through ordered, as GI had recommended according to prior notes. Appreciate additional GI recs. -discussed case with radiologist Dr. Willis- regarding whether there is need for small-bowel follow-through versus upper GI series-- he is going to clarify w / GI. -prn antiseptic mouthwash for mucositis/glossitis. -Continue IV antimicrobials - Zosyn, micafungin - for pneumoperitoneum. -If unable to advance diet to po in the next day, will need to consider TPN. Dispo - cont inpt VTE prophylaxis: Lovenox Code Status: Full. Disposition: med surg. May discharge pt once he tolerates po intake. Subjective: Pt feels well today. No abd pain. +flatus, several liquid BMs. Not hungry. Objective: Vital Signs Temp Pulse Resp BP Pulse Ox 36.7 C 74 16 150/84 H 93 10/09/17 08:00 10/09/17 08:00 10/09/17 08:00 10/09/17 08:00 10/09/17 08:00 Laboratory Results 10/09/17 06:30 10/09/17 06:30 10/08/17 10/09/17 10/10/17 05:59 05:59 05:59 Intake Total 750 1520 Output Total 1150 1750 Balance -400 -230 ___ OBJECTIVE: Physical Exam: General: The patient is a male who is alert and in no acute distress. HEENT: normocephalic, extraocular movements intact, conjunctivae clear. Mucous membranes moist. Geographic tongue noted. Neck: trachea midline, no visible masses. CV: +S1/S2, RRR, no MRG. Resp: unlabored, CTAB no RRW. Abd: soft and nondistended. Bowel sounds present. Non tender throughout. Musculoskeletal: Reduced muscle tone/bulk. Neuro: cranial nerves II XII grossly intact. Intact gross motor and sensory function. Psych: Appropriate mood and appropriate affect. Skin: No pallor. No petechiae. Heme/lymph: No peripheral edema at bilateral lower legs. Labs/Imaging/Other Tests: Personally reviewed/interpreted data, including recent CT abd/pelvis and abd XR ICD10 Worksheet Patient Problems: Problems Problem Status Onset Gastric outlet obstruction Acute
[2017-10-09] MEDS ORDERED: D10W 1,000 ML IV PRN (12:42)
--- NOTE | 2017-10-09 14:25 | SOAPPROG ---
[facility] Progress Note Assessment/Plan: Assessment: A/ GOO s/p stents for malignant obstruction with probable microperforation but responding to medical management. Discussed with Dr. Arambula he recommends 5 days of bowel rest with antibiotics and TPN Plan: Continue IV antibiotics x 5days Begin TPN Bowel rest, sips of clear liquids OK If does well then can try to advance diet after 5 days 10/09/17 14:21 Subjective: CC abd pain Overall better today wants to try to eat Objective: Vital Signs Temp Pulse Resp BP Pulse Ox 36.7 C 78 16 145/88 H 94 10/09/17 12:00 10/09/17 12:00 10/09/17 12:00 10/09/17 12:00 10/09/17 12:00 Laboratory Results 10/09/17 06:30 10/09/17 06:30 10/08/17 10/09/17 10/10/17 05:59 05:59 05:59 Intake Total 750 1520 Output Total 1150 1750 Balance -400 -230 Physical Exam - Physical Exam General Appearance: alert Respiratory: lungs clear Cardiac/Chest: regular rate, rhythm Abdomen: normal bowel sounds, non-tender, soft ICD10 Worksheet Patient Problems: Problems Problem Status Onset Gastric outlet obstruction Acute
[2017-10-09] MEDS: CARBAMIDE PEROXIDE PO PRN ×2 (14:40→18:13)
[2017-10-10] MEDS: PIPERACILLIN/TAZO 4.5 GM/DEX 100 ML IV SCH ×3 (05:55→19:50)
[2017-10-10 06:18] LABS: PLATELET COUNT 345 10^3/uL (150-400)
[2017-10-10 06:20] LABS: INR 1.26 (0.83-1.16)
[2017-10-10] MEDS: D5W NS W/ 20 KCl/L 1,000 ML IV SCH (08:40)
[2017-10-10] MEDS: PANTOPRAZOLE SODIUM 40 MG VIAL IVP SCH (08:40)
[2017-10-10] MEDS: MICAFUNGIN NA 100 MG in NS 100 ML IV SCH (08:40)
[2017-10-10] MEDS: ENOXAPARIN 40 MG/0.4 ML SYR SC SCH (08:48)
--- NOTE | 2017-10-10 08:52 | SOAPPROG ---
SOAP Progress Note Assessment/Plan: Assessment: A/ GOO s/p stents for malignant obstruction with probable microperforation stable today Plan: Continue IV antibiotics x 5days TPN to begin tonight Bowel rest, sips of clear liquids OK If does well then can try to advance diet by Wednesday10/10/17 08:51 Subjective: cc abd hart stable no new hart was able to tolerate sips of clears well Objective: Vital Signs Temp Pulse Resp BP Pulse Ox 36.9 C 77 16 139/78 H 94 10/10/17 07:45 10/10/17 07:45 10/10/17 07:45 10/10/17 07:45 10/10/17 07:45 Laboratory Results 10/10/17 05:59 10/10/17 05:59 10/09/17 10/10/17 10/11/17 05:59 05:59 05:59 Intake Total 1520 821 Output Total 1750 1375 Balance -230 -554 PT 16.0 SEC (12.0-15.0) H 10/10/17 05:59 INR 1.26 (0.83-1.16) H 10/10/17 05:59 Physical Exam - Physical Exam General Appearance: alert Respiratory: lungs clear Cardiac/Chest: regular rate, rhythm Abdomen: non-tender, soft ICD10 Worksheet Patient Problems: Problems Problem Status Onset Gastric outlet obstruction Acute
[2017-10-10] MEDS ORDERED: CARBAMIDE PEROXIDE PO PRN (09:00)
--- NOTE | 2017-10-10 10:25 | SOAPPROG ---
[facility] Progress Note Assessment/Plan: Assessment: 67 yo s/p stents for malignant obstruction with probable microperforation Patient on bowel rest and TPN. S: without complaints, feels good, passing flatus O: Laying in bed abd soft and nondistended Plan: Surgery will be on stand by. Defer to Hospitalist and GI for further management. If needs further intervention, please do not hesitate to call our service or contact Dr. Greene who did his colectomy 10/10/17 10:23 10/10/17 11:02 Objective: Vital Signs Temp Pulse Resp BP Pulse Ox 36.9 C 77 16 139/78 H 94 10/10/17 07:45 10/10/17 07:45 10/10/17 07:45 10/10/17 07:45 10/10/17 07:45 Laboratory Results 10/10/17 05:59 10/10/17 05:59 10/09/17 10/10/17 10/11/17 05:59 05:59 05:59 Intake Total 1520 821 Output Total 1750 1375 150 Balance -230 -554 -150 PT 16.0 SEC (12.0-15.0) H 10/10/17 05:59 INR 1.26 (0.83-1.16) H 10/10/17 05:59 ICD10 Worksheet Patient Problems: Problems Problem Status Onset Gastric outlet obstruction Acute
--- NOTE | 2017-10-10 12:54 | SOAPPROG ---
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 No indication for surgery. Bowel rest and TPN planned. Patient comfortable and without pain. Immunotherapy on hold pending resolution of above. Our service will follow intermitantly. 10/10/17 12:50 Subjective: Feels well. Denies pain. Objective: Vital Signs Temp Pulse Resp BP Pulse Ox 36.9 C 77 16 139/78 H 94 10/10/17 07:45 10/10/17 07:45 10/10/17 07:45 10/10/17 07:45 10/10/17 07:45 Laboratory Results 10/10/17 05:59 10/10/17 05:59 10/09/17 10/10/17 10/11/17 05:59 05:59 05:59 Intake Total 1520 821 Output Total 1750 1375 150 Balance -230 -554 -150 PT 16.0 SEC (12.0-15.0) H 10/10/17 05:59 INR 1.26 (0.83-1.16) H 10/10/17 05:59 - Time Spent With Patient Time Spent With Patient: 15 minutes Physical Exam - Physical Exam General Appearance: alert, no apparent distress EENT: PERRL/EOMI Abdomen: normal bowel sounds, non-tender, soft Neuro/Psych: alert, normal mood/affect ICD10 Worksheet Patient Problems: Problems Problem Status Onset Gastric outlet obstruction Acute
--- NOTE | 2017-10-10 13:03 | HOSPPROG ---
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 He underwent ERCP for CBD stent placement and EGD for duodenal stent placement on 10/[address] Arambula. Subsequently he had abdominal pain and pneumoperitoneum. 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 Anemia, chronic, sta ble - likely 2/2 chronic inflammation from cancer and from cancer drug Glossitis - possibly benign geographic tongue but also may be 2/2 cancer drug -TPN to start today. Continue NPO for 2-3 more days. -Discussed case with GI and pharmacist. -prn antiseptic mouthwash for mucositis/glossitis. -Continue IV antimicrobials - Zosyn, micafungin - for pneumoperitoneum. -ambulate, PT/OT as needed. -check labs in a.m. Dispo - cont inpt VTE prophylaxis: Lovenox Code Status: Full. Disposition: med surg. May discharge pt once he tolerates po intake. Subjective: Today patient feels well. He is a little more hungry today. Denies abdominal pain. Objective: Vital Signs Temp Pulse Resp BP Pulse Ox 36.9 C 77 16 139/78 H 94 10/10/17 07:45 10/10/17 07:45 10/10/17 07:45 10/10/17 07:45 10/10/17 07:45 Laboratory Results 10/10/17 05:59 10/10/17 05:59 10/09/17 10/10/17 10/11/17 05:59 05:59 05:59 Intake Total 1520 821 Output Total 1750 1375 150 Balance -230 -554 -150 PT 16.0 SEC (12.0-15.0) H 10/10/17 05:59 INR 1.26 (0.83-1.16) H 10/10/17 05:59 General: The patient is a male who is alert and in no acute distress. HEENT: normocephalic, extraocular movements intact, conjunctivae clear, no lesions on face. Nares and oral mucosa pink and moist. Neck: trachea midline, no visible masses, no external lesions. Resp: unlabored breathing. Abd: soft and nondistended. Musculoskeletal: Reduced muscle tone and bulk. Neuro: cranial nerves II XII grossly intact. Intact gross motor and sensory function. Psych: appropriate mood/affect. Skin: no pallor. Upper GI series: No evidence of leak or perforation Labs: Personally interpreted. ICD10 Worksheet Patient Problems: Problems Problem Status Onset Gastric outlet obstruction Acute
[2017-10-10] MEDS: D5W 1/2 NS 1,000 ML IV SCH (21:06)
[2017-10-10] MEDS: TPN 1 EA BAG IV SCH (21:06)
[2017-10-11] MEDS: PIPERACILLIN/TAZO 4.5 GM/DEX 100 ML IV SCH ×5 (00:32→23:24)
[2017-10-11 06:19] LABS: PLATELET COUNT 317 10^3/uL (150-400)
[2017-10-11 06:28] LABS: INR 1.32 (0.83-1.16); PROTIME(PATIENT) 16.6 SEC (12.0-15.0)
--- NOTE | 2017-10-11 08:07 | SOAPPROG ---
SOAP Progress Note Assessment/Plan: Assessment: A/ GOO s/p stents for malignant obstruction with probable microperforation Plan: Continue IV antibiotics and TPN TPN to begin tonight If continues to do well consider trial of increased liquids tomorrow 10/11/17 08:06 Subjective: cc abd pain taking sips of water had BM no pain Objective: Vital Signs Temp Pulse Resp BP Pulse Ox 37.0 C 84 16 132/75 H 92 10/11/17 04:00 10/11/17 04:00 10/11/17 04:00 10/11/17 04:00 10/11/17 04:00 Laboratory Results 10/11/17 06:00 10/11/17 06:00 10/10/17 10/11/17 10/12/17 05:59 05:59 05:59 Intake Total 821 3977 Output Total 1375 500 800 Balance -554 3477 -800 PT 16.6 SEC (12.0-15.0) H 10/11/17 06:00 INR 1.32 (0.83-1.16) H 10/11/17 06:00 Physical Exam - Physical Exam General Appearance: alert Respiratory: lungs clear Cardiac/Chest: regular rate, rhythm Abdomen: non-tender, soft ICD10 Worksheet Patient Problems: Problems Problem Status Onset Gastric outlet obstruction Acute
[2017-10-11] MEDS: MICAFUNGIN NA 100 MG in NS 100 ML IV SCH (08:51)
[2017-10-11] MEDS: PANTOPRAZOLE SODIUM 40 MG VIAL IVP SCH (08:51)
[2017-10-11] MEDS: ENOXAPARIN 40 MG/0.4 ML SYR SC SCH (08:51)
[2017-10-11] MEDS: MAGNESIUM SULF 2 GM/WATER 50 ML IV SCH ×2 (09:49→10:55)
[2017-10-11] MEDS: D5W 1/2 NS 1,000 ML IV SCH ×2 (10:54→23:24)
[2017-10-11] MEDS: POTASSIUM Cl (KCl) 100 ML IV SCH ×2 (12:32→14:37)
--- NOTE | 2017-10-11 16:44 | ASMTCMCOM ---
CM Note CM Note Notes: Spoke with pt's RN. Pt still on IV ABX and TPN. Anticipate pt will d/c independent when medically ready in 2-3 days. Pt to start on clears soon. There is a possibility he will need cyclic TPN at home but that's unknown at this time. CM will continue to follow. Date Signed: 10/11/2017 04:44 PM Electronically Signed By:BRENDAN Otero
--- NOTE | 2017-10-11 16:51 | HOSPPROG ---
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 He underwent ERCP for CBD stent placement and EGD for duodenal stent placement on 10/[address] Arambula. Subsequently he had abdominal pain and pneumoperitoneum. 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 Anemia, chronic, stable - likely 2/2 chronic inflammation from cancer and from cancer drug Glossitis - possibly benign geographic tongue but also may be 2/2 cancer drug Hypomagnesemia Hypokalemia -Continue NPO for 1-2 more days. -Continue TPN. Apparently magnesium is unavailable in TPN (on backorder) so we have to replace mag separately. -Discussed case with pharmacist. -prn antiseptic mouthwash for mucositis/glossitis. -Continue IV antimicrobials - Zosyn, micafungin - for pneumoperitoneum. -ambulate, PT/OT as needed. -check labs in a.m. Dispo - cont inpt VTE prophylaxis: Lovenox Code Status: Full. Disposition: med surg. May discharge pt once he tolerates po intake. Subjective: Pt feels more hungry today. Denies abd pain. Feels more energy after getting TPN last night. Objective: Vital Signs Temp Pulse Resp BP Pulse Ox 36.9 C 77 16 131/80 H 95 10/11/17 16:00 10/11/17 16:00 10/11/17 16:00 10/11/17 16:00 10/11/17 16:00 Laboratory Results 10/11/17 06:00 10/11/17 06:00 10/10/17 10/11/17 10/12/17 05:59 05:59 05:59 Intake Total 821 3977 420 Output Total 9431 706 6527 Balance -554 9377 -1180 PT 16.6 SEC (12.0-15.0) H 10/11/17 06:00 INR 1.32 (0.83-1.16) H 10/11/17 06:00 General: The patient is a thin male who is alert and in no acute distress. HEENT: normocephalic, extraocular movements intact, conjunctivae clear, no lesions on face. Nares and oral mucosa pink and moist. Neck: trachea midline, no visible masses, no external lesions. Resp: unlabored breathing. Abd: soft and nondistended. Musculoskeletal: Reduced muscle tone and bulk. Neuro: cranial nerves II XII grossly intact. Intact gross motor and sensory function. Psych: appropriate mood/affect. Skin: no pallor. ICD10 Worksheet Patient Problems: Problems Problem Status Onset Gastric outlet obstruction Acute
[2017-10-11] MEDS: TPN 1 EA BAG IV SCH (20:47)
[2017-10-12] MEDS: PIPERACILLIN/TAZO 4.5 GM/DEX 100 ML IV SCH ×4 (05:30→23:44)
[2017-10-12] MEDS: PANTOPRAZOLE SODIUM 40 MG VIAL IVP SCH (09:26)
[2017-10-12] MEDS: MICAFUNGIN NA 100 MG in NS 100 ML IV SCH (09:26)
[2017-10-12] MEDS: ENOXAPARIN 40 MG/0.4 ML SYR SC SCH (09:27)
--- NOTE | 2017-10-12 10:14 | GPROG ---
[f rep st] PROGRESS NOTE POST ANESTHESIA NOTE The patient had a general anesthetic for EGD, ERCP with biliary stent and duodenal stent placement. Patient was in the endoscopy suite where he was anesthetized and awakened, and taken to Recovery in g ood condition. Patient was doing well that evening. He developed a microperforation with a small am ount of air in the abdomen. This was treated with n.p.o. and IV antibiotics. He developed abdominal pain with this. This was treated. Patient was discharged to home without apparent anesthesia compl ications. His condition is secondary to duodenal and colon cancer. The prognosis is limited. /[id number]/MODL
--- NOTE | 2017-10-12 10:36 | SOAPPROG ---
SOAP Progress Note Assessment/Plan: Assessment: A/ GOO s/p stents for malignant obstruction with probable microperforation abd pain resolved Plan: Continue IV antibiotics and TPN Trial of liquid diet today 10/12/17 10:35 Subjective: cc abd pain has done well with bowel rest and antibiotics, passing liquid BM. Patient is hungry Objective: Vital Signs Temp Pulse Resp BP Pulse Ox 37.0 C 73 16 148/73 H 96 10/12/17 08:29 10/12/17 08:29 10/12/17 08:29 10/12/17 08:29 10/12/17 08:29 Laboratory Results 10/11/17 06:00 10/12/17 05:30 10/11/17 10/12/17 10/13/17 05:59 05:59 05:59 Intake Total 3977 3510 Output Total 500 3450 Balance 3477 60 PT 16.6 SEC (12.0-15.0) H 10/11/17 06:00 INR 1.32 (0.83-1.16) H 10/11/17 06:00 Physical Exam - Physical Exam General Appearance: alert Respiratory: lungs clear Cardiac/Chest: regular rate, rhythm Abdomen: normal bowel sounds, non-tender, soft ICD10 Worksheet Patient Problems: Problems Problem Status Onset Gastric outlet obstruction Acute
--- NOTE | 2017-10-12 17:26 | HOSPPROG ---
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 Arambula -10/09 follow-through study demonstrating no ongoing GOO -safely advanced diet to clear liq -will get calorie count as we adv diet to determine when safe to de-escalate TPN # Pneumoperitoneum - suspect microperforation from stent / duodenal cancer, though no source of perf seen on CT -atbx broadened to Zosyn plus Micafungin, if WBC remains normal, will consider DC after d/w ID # Duodenal cancer - has received 2 doses of Pembrolizumab without toxicity ( and 09/17) -chemo per onc # Anemia - chronic, no e/o active bleeding -resume oral iron when able to take po Diet - clears PPx - lovenox 40 Full code Dispo - cont inpt for ongoing TPN, GOO unresolved Subjective: reports no abd pain, adv to clears successfully Objective: Vital Signs Temp Pulse Resp BP Pulse Ox 36.9 C 79 16 163/95 H 97 10/12/17 16:00 10/12/17 16:00 10/12/17 16:00 10/12/17 16:00 10/12/17 16:00 Laboratory Results 10/11/17 06:00 10/12/17 05:30 10/11/17 10/12/17 10/13/17 05:59 05:59 05:59 Intake Total 3977 3510 Output Total 500 3450 950 Balance 3477 60 -950 PT 16.6 SEC (12.0-15.0) H 10/11/17 06:00 INR 1.32 (0.83-1.16) H 10/11/17 06:00 - Physical Exam Constitutional: no apparent distress, not in pain, chronically ill appearing, No uncomfortable Cardiovascular: regular rate and rhythym, no murmur, rub, or gallop, No edema Respiratory: no respiratory distress, no rales or rhonchi, clear to auscultation Gastrointestinal: soft, non-tender abdomen, no palpable masses, other, No normoactive bowel sounds (hypoactive bowel sounds), No guarding, No distension Skin: other (no erythema/induration/fluctuance/tenderness at port site) Neurologic: AAOx3 Psychiatric: interacting appropriately, not anxious, not encephalopathic, thought process linear ICD10 Worksheet Patient Problems: Problems Problem Status Onset Gastric outlet obstruction Acute
[2017-10-12] MEDS: D5W 1/2 NS 1,000 ML IV SCH (17:33)
[2017-10-12] MEDS: TPN 1 EA BAG IV SCH (20:59)
[2017-10-13] MEDS: PIPERACILLIN/TAZO 4.5 GM/DEX 100 ML IV SCH ×2 (05:09→12:52)
--- NOTE | 2017-10-13 08:57 | SOAPPROG ---
SOAP Progress Note Assessment/Plan: Assessment: A/ GOO s/p stents for malignant obstruction with probable microperforation abd pain resolved Tolerating clear liq diet Plan: OK to d/c antibiotics Increase to full liquid dit as tolerated aiming for low residual diet Agree wit calorie count and d/c TPN when meets nutrition needs 10/13/17 08:54 Subjective: abd pain doing well tolerated clear lq yesterday Objective: Vital Signs Temp Pulse Resp BP Pulse Ox 36.4 C 66 16 119/69 95 10/13/17 04:59 10/13/17 04:59 10/13/17 04:59 10/13/17 04:59 10/13/17 04:59 Laboratory Results 10/13/17 05:00 10/13/17 05:00 10/12/17 10/13/17 10/14/17 05:59 05:59 05:59 Intake Total 3510 4765 Output Total 3450 2750 Balance 60 2015 PT 16.6 SEC (12.0-15.0) H 10/11/17 06:00 INR 1.32 (0.83-1.16) H 10/11/17 06:00 Physical Exam - Physical Exam General Appearance: WD/WN, no apparent distress Respiratory: lungs clear Cardiac/Chest: regular rate, rhythm Abdomen: non-tender, soft ICD10 Worksheet Patient Problems: Problems Problem Status Onset Gastric outlet obstruction Acute
[2017-10-13] MEDS: PANTOPRAZOLE SODIUM 40 MG VIAL IVP SCH (08:59)
[2017-10-13] MEDS: ENOXAPARIN 40 MG/0.4 ML SYR SC SCH (08:59)
[2017-10-13] MEDS: MICAFUNGIN NA 100 MG in NS 100 ML IV SCH (08:59)
--- NOTE | 2017-10-13 11:07 | SOAPPROG ---
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 Microperforation after duodenal stent placement 3. Anemia of iron deficiency Tolerating clear liquids. Has some diarrhea, likely due to refeeding and/or antibiotic induced. Plan: - continue to advance diet - d/c to home when OK with GI and surgery - was due for C3 of Keytruda on 10/08 - will resume on discharge. 25 min spent w/ pt and in coordination of care. 10/13/17 11:06 Subjective: feeling well. no abd pain or vomiting. Objective: exam: NAD Lungs CTAB CV RRR no MGR aBd: +BS NT ND Ext: no edema Vital Signs Temp Pulse Resp BP Pulse Ox 36.7 C 76 16 130/73 H 96 10/13/17 08:00 10/13/17 08:00 10/13/17 08:00 10/13/17 08:00 10/13/17 08:00 Laboratory Results 10/13/17 05:00 10/13/17 05:00 10/12/17 10/13/17 10/14/17 05:59 05:59 05:59 Intake Total 3510 4765 Output Total 3450 2750 900 Balance 60 2015 -900 PT 16.6 SEC (12.0-15.0) H 10/11/17 06:00 INR 1.32 (0.83-1.16) H 10/11/17 06:00 ICD10 Worksheet Patient Problems: Problems Problem Status Onset Gastric outlet obstruction Acute
--- NOTE | 2017-10-13 16:29 | HOSPPROG ---
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 Arambula -10/09 follow-through study demonstrating no ongoing GOO -safely advanced diet to full liq today -d/w dietary, get calorie count as we adv diet to determine when safe to completely stop TPN, will hold dosing tonight -d/w Dr. Ramírez, she will d/w Dr. Arambula re: advancing to solids # Pneumoperitoneum - suspect microperforation from stent / duodenal cancer, though no source of perf seen on CT -atbx broadened to Zosyn plus Micafungin -will d/w Dr. Ramírez stop date # Duodenal cancer - has received 2 doses of Pembrolizumab without toxicity ( and 09/17) -chemo per onc # Anemia - chronic, no e/o active bleeding -resume oral iron when able to take po Diet - full clear PPx - lovenox 40 Full code Dispo - cont inpt for ongoing TPN today, GOO unresolved Subjective: patient reports deisy full liq w/ rapid stool output Objective: Vital Signs Temp Pulse Resp BP Pulse Ox 36.7 C 76 16 130/73 H 96 10/13/17 08:00 10/13/17 08:00 10/13/17 08:00 10/13/17 08:00 10/13/17 08:00 Laboratory Results 10/13/17 05:00 10/13/17 05:00 10/12/17 10/13/17 10/14/17 05:59 05:59 05:59 Intake Total 3510 4765 Output Total 3450 4990 1325 Balance 60 2015 -1325 PT 16.6 SEC (12.0-15.0) H 10/11/17 06:00 INR 1.32 (0.83-1.16) H 10/11/17 06:00 - Physical Exam Constitutional: no apparent distress, appears nourished, not in pain, No uncomfortable Cardiovascular: regular rate and rhythym, no murmur, rub, or gallop, No edema Respiratory: no respiratory distress, no rales or rhonchi, clear to auscultation Gastrointestinal: normoactive bowel sounds, soft, non-tender abdomen, no palpable masses, No distension Neurologic: AAOx3 Psychiatric: interacting appropriately, not anxious, not encephalopathic, thought process linear ICD10 Worksheet Patient Problems: Problems Problem Status Onset Gastric outlet obstruction Acute
[2017-10-14] MEDS: D5W 1/2 NS 1,000 ML IV SCH (02:02)
[2017-10-14] MEDS: PANTOPRAZOLE SODIUM 40 MG VIAL IVP SCH (08:01)
[2017-10-14] MEDS: ENOXAPARIN 40 MG/0.4 ML SYR SC SCH (08:02)
--- NOTE | 2017-10-14 09:09 | SOAPPROG ---
SOAP Progress Note Assessment/Plan: Assessment: A/ S/P duo stent fro GOO with microperforation clinically resolved Plan: Advance to low fiber diet, taper off TPN when meets nutrition needs OK to d/c home when taking po well Will sign off 10/14/17 09:06 Subjective: CC GOO s/p stent pain resolved tolerating full liq diet Objective: Vital Signs Temp Pulse Resp BP Pulse Ox 36.0 C 75 16 125/72 H 94 10/14/17 08:00 10/14/17 08:00 10/14/17 08:00 10/14/17 08:00 10/14/17 08:00 Laboratory Results 10/13/17 05:00 10/13/17 05:00 10/13/17 10/14/17 10/15/17 05:59 05:59 05:59 Intake Total 4765 1575 Output Total 2750 3200 Balance 2014 -162 PT 16.6 SEC (12.0-15.0) H 10/11/17 06:00 INR 1.32 (0.83-1.16) H 10/11/17 06:00 Physical Exam - Physical Exam General Appearance: alert Respiratory: lungs clear Cardiac/Chest: regular rate, rhythm Abdomen: non-tender, soft ICD10 Worksheet Patient Problems: Problems Problem Status Onset Gastric outlet obstruction Acute
--- NOTE | 2017-10-14 10:10 | SOAPPROG ---
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 Microperforation after duodenal stent placement 3. Anemia of iron deficiency Tolerating clear liquids. Has some diarrhea, likely due to refeeding and/or antibiotic induced. Plan: - continue to advance diet - d/c to home when OK with GI and surgery - was due for C3 of Keytruda on 10/08 - will resume next week, after discharge. Subjective: feeling well. taking full liquids without problems. Objective: exam unchanged Vital Signs Temp Pulse Resp BP Pulse Ox 36.0 C 75 16 125/72 H 94 10/14/17 08:00 10/14/17 08:00 10/14/17 08:00 10/14/17 08:00 10/14/17 08:00 Laboratory Results 10/13/17 05:00 10/13/17 05:00 10/13/17 10/14/17 10/15/17 05:59 05:59 05:59 Intake Total 4779 1575 Output Total 3432 3200 Balance 2014 -1624 PT 16.6 SEC (12.0-15.0) H 10/11/17 06:00 INR 1.32 (0.83-1.16) H 10/11/17 06:00 ICD10 Worksheet Patient Problems: Problems Problem Status Onset Gastric outlet obstruction Acute
--- NOTE | 2017-10-14 15:47 | HOSPPROG ---
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 Arambula -10/09 follow-through study demonstrating no ongoing GOO -safely advanced diet to low fiber today -ongoing calorie count as we adv diet to determine when safe to DC # Pneumoperitoneum - suspect microperforation from stent / duodenal cancer, though no source of perf seen on CT -abx broadened to Zosyn plus Micafungin, stopped s/p 6 days tx # Duodenal cancer - has received 2 doses of Pembrolizumab without toxicity ( and 09/17) -chemo per onc # Anemia - chronic, no e/o active bleeding -resume oral iron when able to take po Diet - low fiber PPx - lovenox 40 Full code Dispo - GOO unresolved, carefully advancing diet Subjective: had a BM, deisy full liq Objective: Vital Signs Temp Pulse Resp BP Pulse Ox 36.0 C 75 16 125/72 H 94 10/14/17 08:00 10/14/17 08:00 10/14/17 08:00 10/14/17 08:00 10/14/17 08:00 Laboratory Results 10/13/17 05:00 10/13/17 05:00 10/13/17 10/14/17 10/15/17 05:59 05:59 05:59 Intake Total 4765 1575 Output Total 2750 3200 1450 Balance 20141625 -1450 PT 16.6 SEC (12.0-15.0) H 10/11/17 06:00 INR 1.32 (0.83-1.16) H 10/11/17 06:00 - Pending Discharge Pending Discharge Within 24 Hours: Yes Pending Discharge Date: 10/15/17 Pending Discharge Time: 11:00 - Physical Exam Constitutional: no apparent distress, not in pain, No chronically ill appearing , No uncomfortable Cardiovascular: regular rate and rhythym, no murmur, rub, or gallop, No edema Respiratory: no respiratory distress, no rales or rhonchi, clear to auscultation Gastrointestinal: normoactive bowel sounds, soft, non-tender abdomen, no palpable masses, No distension Neurologic: AAOx3 Psychiatric: interacting appropriately, not anxious, not encephalopathic, thought process linear ICD10 Worksheet Patient Problems: Problems Problem Status Onset Gastric outlet obstruction Acute
[2017-10-15 08:44] VITALS: BP 153/82
[2017-10-15] MEDS: ENOXAPARIN 40 MG/0.4 ML SYR SC SCH (09:22)
[2017-10-15] MEDS: PANTOPRAZOLE SODIUM 40 MG VIAL IVP SCH (09:22)
--- NOTE | 2017-10-15 15:24 | PDDCSUM ---
Discharge Summary Discharge Summary: DISCHARGE SUMMARY FOLLOW-UP ITEMS: Follow up with Dr. Mabel Dominguez next week to resume chemotherapy cycle DATE OF ADMISSION: 10/04/2017 DATE OF DISCHARGE: 10/15/2017 DISCHARGE DIAGNOSES: 1. Acute duodenal obstruction with acute gastric outlet obstruction 2. Acute pneumoperitoneum secondary to micro perforation 3. Duodenal cancer 4. Chronic anemia CONSULTATIONS: Gastroenterology, Oncology PROCEDURES / IMAGING: ERCP and EGD with duodenal and common bile duct stent placed on 10/[address] Romeo Arambula CHIEF COMPLAINT: Acute abdominal pain SUBJECTIVE: Patient is feeling well at time discharge, he is eating and drinking normally, moving his bowels PHYSICAL EXAM ON DISCHARGE: Systolic blood pressure is 130-150, afebrile overnight, abdomen is soft nontender nondistended, bowel sounds are present LABS ON DISCHARGE: Hemoglobin 10.3, creatinine 0.7, liver panel unremarkable HOSPITAL COURSE BY PROBLEM: The patient presented with an acute duodenal obstruction secondary to his duodenal cancer, resulting in acute gastric outlet obstruction. He underwent diagnostic and therapeutic procedure by Dr. Romeo Arambula on 10/05/2017, consisting of an ERCP, EGD with duodenal and CBD stent placement. The patient did experience a subsequent micro perforation and resultant pneumoperitoneum, but no specific localized source of perforation was seen on abdominal CT. He initially received 2 days of IV levofloxacin, and then 7 subsequent days of micafungin and Zosyn. After the procedure and micro perforation, the patient was made NPO, with IV fluids and TPN support. After he began to demonstrate clinical improvement, the patient's diet was very cautiously advance, beginning with clear liquids, advancing to full liquids, then a soft low-fiber diet. Now the patient has been able to tolerate a soft low-fiber diet, and is able to maintain a consistent oral intake, his TPN has been discontinued is safe for discharge home. His previously scheduled cycle of chemotherapy for 10/05/2017 was placed on hold, and will likely be resumed next week after he meets with his primary oncologist, Dr. Dominguez. DISCHARGE MEDICATIONS: Please see official discharge medication reconciliation sheet in chart , continue all home medications without any adjustments. DISCHARGE INSTRUCTIONS: Please follow up with Dr. Dominguez next week, follow up with Dr. Romeo Arambula thereafter. TIME SPENT: Greater than 30 minutes were spent on direct patient care, as well as discharge planning and preparation.
== END 2017-10-15 12:38 | disposition home or self-care (01) | DRG 374 ==
LOC: OBSVTOIN 03:59 → F1N 06:11
PROVIDERS: ADMIT Family Medicine; ATTEND Family Medicine
PROC: 0F798DZ Dilation of Common Bile Duct with Intraluminal Device, Via Natural or Artificial Opening Endoscopic (ICD-10-PCS; principal; 2017-10-05 08:00)
PROC: 0D798DZ Dilation of Duodenum with Intraluminal Device, Via Natural or Artificial Opening Endoscopic (ICD-10-PCS; principal; 2017-10-05 08:00)
PROC: 0FC98ZZ Extirpation of Matter from Common Bile Duct, Via Natural or Artificial Opening Endoscopic (ICD-10-PCS; principal; 2017-10-05 08:00)
DX: C17.0 Malignant neoplasm of duodenum (principal); K83.1 Obstruction of bile duct; D53.9 Nutritional anemia, unspecified; K66.8 Other specified disorders of peritoneum; K14.0 Glossitis; Z87.891 Personal history of nicotine dependence
CPT/HCPCS: 84134-90; 96374; C1769; C1876; J1100; J1170; J1610; J1642; J1650; J1956; J2060; J2248; J2405; J2543; J2704; J3010; J3475; J3480; Q9961; Q9967

== ENCOUNTER → 2018-04-15 | Outpatient (CLI) | payer OTHER | LOC: FIMAGING 14:03 | PROVIDERS: ATTEND Internal Medicine Hematology & Oncology | DX: R05 Cough (principal); C24.1 Malignant neoplasm of ampulla of Vater ==

== ENCOUNTER 2018-05-19 14:15 | Emergency (ER) | payer OTHER ==
--- NOTE | 2018-05-19 15:09 | EDPHY ---
H & P Time Seen by Provider: 05/19/18 14:58 HPI/ROS: CHIEF COMPLAINT: Abnormal blood studies HISTORY OF PRESENT ILLNESS: Patient is a 67-year-old male with a history of stomach cancer on chemotherapy who presents emergency department with abnormal blood studies. The patient's last chemotherapy was 2 weeks ago. The patient had routine blood studies drawn today by his primary care physician Dr. Conner. He was contacted because he had an elevated white blood cell count. He is told to come to the emergency department. Patient had an episode of fever 2 days ago. No other recent fever. No nausea vomiting. No abdominal pain. No new weakness or numbness. No chest pain or shortness of breath. REVIEW OF SYSTEMS: 10 systems were reveiwed and are negative with the exception of the elements mentioned in the history of present illness. Past Medical/Surgical History: Includes colon cancer, stomach cancer Past surgical history: Includes colon surgery, chest port placement Social history: The patient does not smoke Smoking Status: Former smoker Physical Exam: Vitals noted GENERAL: Well-appearing, in no acute distress, alert. HEENT: Eyes normal to inspection, normal pharynx, no signs of dehydration. NECK: Normal, supple. RESPIRATORY: Clear to auscultation bilaterally, no rales, rhonchi or wheezing. CVS: Regular rate and rhythm, no rubs, murmurs, or gallops. ABDOMEN: Soft, nontender, nondistended, no organomegaly. BACK: Normal to inspection, no CVA tenderness. SKIN: Normal color, no rash, warm, dry. No pallor. EXTREMITIES: No pedal edema, no calf tenderness, no Homans sign or cords, no joint swelling. NEURO/PSYCH: Alert and oriented, normal mood and affect, normal motor sensory exam. No obvious cranial nerve deficit. Constitutional: Initial Vital Signs Temperature (C) 36.4 C 05/19/18 14:21 Heart Rate 90 05/19/18 14:21 Respiratory Rate 16 05/19/18 14:21 Blood Pressure 122/75 H 05/19/18 14:21 O2 Sat (%) 96 05/19/18 14:21 O2 Delivery Mode Room Air Allergies/Adverse Reactions: No Known Allergies Allergy (Unverified 05/19/18 14:20) Home Medications: Medication Instructions Recorded Multivitamins W-Minerals [Thera M 1 each PO DAILY 10/04/17 Plus Tablet (*)] Pantoprazole Sodium 40 mg PO DAILY #30 tablet. 10/15/17 Deandre 05/19/18 ELMER 05/19/18 Medical Decision Making ED Course/Re-evaluation: In the emergency department I discussed possible etiologies with the patient. Answered all his questions. I reviewed the patient's laboratory studies. Blood studies from 05/19/2018: Patient had white count of 12, hematocrit of 38, platelets of 497. I contacted Beverly Handley who is the patient's primary PA. She states that the patient also had a chest x-ray which was negative today. Flu swab was negative. She sent patient to the emergency department for his elevated white count and shift. She was also concerned the patient could be immunosuppressed from his cancer treatment. I paged the on-call physician for Dr. Dominguez. I spoke with Dr. Cj Carrillo. He states that his CA treat enhances blood cell response to infection. He is not more susceptible to infection due to his CA treatment. He was not overly concerned with the white count of 12. He agrees with the plan to order cultures and have the patient closely followed up. Here the patient's white count was 10. Patient's hematocrit is 33. Previous hematocrit was 38. Patient's chemistry panel was notable for low sodium 131. Previous sodium was normal. I discussed these results with Beverly Handley. She will have close follow-up on the blood cultures and check in with the patient. Patient was given warnings prior to leaving. He will return with worsening symptoms. Differential Diagnosis: My differential includes but is not limited to leukocytosis, bacteremia, sepsis , bronchitis, pneumonia, influenza - Data Points Laboratory Results: Laboratory Results 05/19/18 15:12 05/19/18 15:12 05/19/18 05/19/18 05/19/18 15:12 15:12 15:12 WBC 10.27 10^3/uL H 10^3/uL (3.80-9.50) RBC 3.60 10^6/uL L 10^6/uL (4.40-6.38) Hgb 11.5 g/dL L g/dL (13.7-17.5) Hct 33.1 % L % (40.0-51.0) MCV 91.9 fL fL (81.5-99.8) MCH 31.9 pg pg (27.9-34.1) MCHC 34.7 g/dL g/dL (32.4-36.7) RDW 12.2 % % (11.5-15.2) Plt Count 437 10^3/uL H 10^3/uL (150-400) MPV 8.6 fL L fL (8.7-11.7) Neut % (Auto) Pending Lymph % (Auto) Pending [place] % (Auto) Pending Eos % (Auto) Pending Baso % (Auto) Pending Nucleat RBC Rel Count Pending Absolute Neuts (auto) Pending Absolute Lymphs (auto) Pending Absolute Monos (auto) Pending Absolute Eos (auto) Pending Absolute Basos (auto) Pending Absolute Nucleated RBC Pending Immature Gran % Pending Immature Gran # Pending Platelet Estimate Pending VBG Lactic Acid 0.7 mmol/L mmol/L (0.7-2.1) Sodium 131 mEq/L L mEq/L (135-145) Potassium 4.0 mEq/L mEq/L (3.5-5.2) Chloride 100 mEq/L mEq/L (97-110) Carbon Dioxide 23 mEq/l mEq/l (22-31) Anion Gap 8 mEq/L mEq/L (6-14) BUN 10 mg/dL mg/dL (7-23) Creatinine 0.7 mg/dL mg/dL (0.7-1.3) Estimated GFR > 60 Glucose 96 mg/dL mg/dL (70-100) Calcium 8.5 mg/dL mg/dL (8.5-10.4) Departure - Departure Disposition: Home, Routine, Self-Care Clinical Impression: Fever Qualifiers: Fever type: unspecified Qualified Code(s): R50.9 - Fever, unspecified Leukocytosis Qualifiers: Leukocytosis type: other Qualified Code(s): D72.828 - Other elevated white blood cell count Condition: Good Instructions: Leukocytosis (ED), Fever in Adults (ED) Additional Instructions: You have blood cultures pending. These take 48 hr to obtain the final results. Follow up closely with Beverly Handley. Return to the emergency department with worsening fever, abdominal pain, shortness of breath, chest pain or any other concerns. Referrals: Maday Handley PA [Primary Care Provider] - 1-2 days without fail
[2018-05-19 15:27] LABS: PLATELET COUNT 437 10^3/uL (150-400)
[2018-05-19 16:16] VITALS: BP 128/78
== END 2018-05-19 16:16 | disposition home or self-care (01) ==
DX: R50.9 Fever, unspecified (principal); D72.829 Elevated white blood cell count, unspecified; Z85.028 Personal history of other malignant neoplasm of stomach; Z92.21 Personal history of antineoplastic chemotherapy; Z87.891 Personal history of nicotine dependence

== ENCOUNTER 2018-05-19 22:42 | Observation (INO) | payer OTHER ==
--- NOTE | 2018-05-19 22:50 | EDPHY ---
H & P Stated Complaint: on chemo, rigors and fever Time Seen by Provider: 05/19/18 22:50 HPI/ROS: HPI CHIEF COMPLAINT: Fever, rigors chills, diarrhea, black diarrhea, bright red blood per rectum HISTORY OF PRESENT ILLNESS: 67-year-old male, currently on chemotherapy for duodenal cancer followed by Dr. Dominguez, presents to the emergency room with chills, rigors tonight. T-max at home 102.5. Patient was here in the emergency room earlier. Had blood cultures obtained earlier. He reports he had a flu test was negative. Also a chest x-ray. He presents back to the emergency room with chills, rigors, could not get warm, diarrhea that he describes explosive, black appearing, and then when he wiped he states he had bright blood blood per rectum. Patient denies chest pain or abdominal pain, denies shortness of breath. Does endorse a nonproductive cough. Past Medical History: Significant medical history for colon cancer, duodenal cancer on chemotherapy Past Surgical History: Colectomy, duodenal stent Social History: Denies drugs alcohol tobacco. Family History: Noncontributory Dr. Dominguez is his Oncologist. ROS REVIEW OF SYSTEMS: 10 Systems were reviewed and negative with the exception of the elements mentioned in the history of present illness. Exam Constitutional triage nursing summary reviewed, vital signs reviewed, awake/ alert. Vital signs noted tachycardic upon arrival her noted be 130s. Not hypotensive. 37.9 temperature. Eyes normal conjunctivae and sclera, EOMI, PERRLA. HENT normal inspection, atraumatic, moist mucus membranes, no epistaxis, neck supple/ no meningismus, no raccoon eyes. Respiratory clear to auscultation bilaterally, normal breath sounds, no respiratory distress, no wheezing. Cardiovascular tachycardia, regular rhythm, no murmur, no edema, distal pulses normal. Gastrointestinal soft, non-tender, no rebound, no guarding, normal bowel sounds, no distension, no pulsatile mass. Genitourinary no CVA tenderness. Musculoskeletal no midline vertebral tenderness, full range of motion, no calf swelling, no tenderness of extremities, no meningismus, good pulses, neurovascularly intact. Skin pink, warm, & dry, no rash, skin atraumatic. Neurologic awake, alert and oriented x 3, AAOx3, moves all 4 extremities equally, motor intact, sensory intact, CN II-XII intact, normal cerebellar, normal vision, normal speech. Psychiatric normal mood/affect. Heme/Lymph/Immune no lymphadenopathy. Differential Diagnosis: But is not limited to in a particular order bacteremia , acute febrile illness, GI illness, pneumonia, bronchitis, GI bleed, peptic ulcer disease Medical Decision Making: Plan for this patient IV establishment IV fluid bolus , basic blood work, type and screen, influenza, respiratory panel, GI studies, UA, close monitoring re-evaluate. Re-evaluation: 1234: Labs and workup reviewed. Blood cultures are pending from earlier today. CBC is stable from earlier today. Patient hemodynamically stable Heart rate improved with IV fluids Given T-max 102.5 degrees at home rigors and chills will be admitted overnight for observation. Has a dry cough Most likely viral illness Has for the black"explosive"diarrhea will continue to watch. GI stool studies ordered. He has not had any bleeding in the emergency room. I have asked Dr. Chan to admit. Source: Patient - Personal History Current Tetanus Diphtheria and Acellular Pertussis (TDAP): Yes - Medical/Surgical History Hx Asthma: No Hx Chronic Respiratory Disease: No Hx Diabetes: No Hx Cardiac Disease: No Hx Renal Disease: No Hx Cirrhosis: No Hx Alcoholism: No Hx HIV/AIDS: No Hx Splenectomy or Spleen Trauma: No Other PMH: Stomach CA- on chemo, Colon CA, colon surgery, chest port - Social History Smoking Status: Former smoker Constitutional: Initial Vital Signs Temperature (C) 37.9 C 05/19/18 22:44 Heart Rate 132 H 05/19/18 22:44 Respiratory Rate 18 05/19/18 22:44 Blood Pressure 126/64 H 05/19/18 22:44 O2 Sat (%) 92 05/19/18 22:44 O2 Delivery Mode Room Air Allergies/Adverse Reactions: No Known Allergies Allergy (Unverified 05/19/18 14:20) Home Medications: Medication Instructions Recorded Multivitamins W-Minerals [Thera M 1 each PO DAILY 10/04/17 Plus Tablet (*)] Cetirizine [ZyrTEC 10 mg (*)] 10 mg PO DAILY 05/19/18 Pantoprazole Sodium 40 mg PO BID PRN #60 tab-cap 05/21/18 Medical Decision Making - Data Points Laboratory Results: Laboratory Results 05/19/18 22:55 05/19/18 22:55 Medications Given: Discontinued Medications Acetaminophen (Tylenol) 650 mg PO Q4HRS PRN PRN Reason: Pain, Mild/Fever, Can Take PO Stop: 11/16/18 00:33 Last Admin: 05/20/18 10:28 Dose: 650 mg Guaifenesin/Dextromethorphan (Robitussin Dm Oral Liquid) 10 ml PO Q4HRS PRN PRN Reason: Cough, Moderate Stop: 11/16/18 02:03 Last Admin: 05/20/18 10:28 Dose: 10 ml Sodium Chloride (Ns) 1,000 mls @ 0 mls/hr IV EDNOW ONE; Wide Open PRN Reason: Protocol Stop: 05/19/18 22:54 Last Admin: 05/19/18 22:58 Dose: 1,000 mls Sodium Chloride (Ns) 1,000 mls @ 0 mls/hr IV ONCE ONE PRN Reason: Wide Open Stop: 05/19/18 23:10 Last Admin: 05/19/18 23:15 Dose: 1,000 mls Sodium Chloride (Ns) 1,000 mls @ 100 mls/hr IV CONT MAURICIO Stop: 11/16/18 00:44 Last Admin: 05/21/18 06:05 Dose: 1,000 mls Lactated Ringer's (Lr) 1,000 mls @ 0 mls/hr IV ONCE ONE PRN Reason: KVO Stop: 05/21/18 08:48 Last Admin: 05/21/18 08:52 Dose: 1,000 mls Pantoprazole Sodium (Protonix) 80 mg IVP EDNOW ONE Stop: 05/19/18 23:10 Last Admin: 05/19/18 23:16 Dose: 80 mg Pantoprazole Sodium (Protonix) 40 mg IVP BID MAURICIO Stop: 11/16/18 08:59 Last Admin: 05/21/18 08:07 Dose: 40 mg Departure - Departure Disposition: [facility] Acute Clinical Impression: Rigors Fever Qualifiers: Fever type: unspecified Qualified Code(s): R50.9 - Fever, unspecified Condition: Fair
[2018-05-19] MEDS ORDERED: NS 1,000 ML IV ONE ×2 (22:53→23:09)
[2018-05-19] MEDS ORDERED: PANTOPRAZOLE SODIUM 40 MG VIAL IVP ONE (23:09)
[2018-05-19 23:10] LABS: PLATELET COUNT 533 10^3/uL (150-400)
[2018-05-19 23:21] LABS: INR 1.22 (0.83-1.16); PROTIME(PATIENT) 15.6 SEC (12.0-15.0)
[2018-05-20] MEDS ORDERED: ACETAMINOPHEN 325 MG TAB PO PRN (00:34)
[2018-05-20] MEDS ORDERED: ONDANSETRON DISINTEGRATING 4 MG TAB PO PRN (00:34)
[2018-05-20] MEDS ORDERED: ONDANSETRON 4 MG/2 ML VIAL IVP PRN (00:34)
[2018-05-20] MEDS: NS 1,000 ML IV SCH ×3 (01:10→20:24)
--- NOTE | 2018-05-20 02:37 | PDGENHP ---
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 The patient tells me he has been experiencing 3 days of fever, night sweats, chills, and diarrhea after having recent sick contacts. Today he also noted his diarrhea was dark and he noted a small amount of bright red blood on the toilet paper after wiping. Currently he feels much improved after receiving fluids. Of note, he had a CBD and duodenal stent placed in October of 2017 for obstruction. This procedure was complicated by microperforation. He is currently undergoing chemotherapy for duodenal cancer, last dose 2 weeks ago. Case discussed with ED physician Dr. Fonseca; records reviewed and summarized above. History Information - Allergies/Home Medication List Allergies/Adverse Reactions: No Known Allergies Allergy (Unverified 05/19/18 14:20) Home Medications: Multivitamins W-Minerals [Thera M Plus Tablet (*)] 1 each PO DAILY 10/04/17 [ Last Taken Unknown] Keytruda 05/19/18 [Last Taken Unknown] ZYRTEC 05/19/18 [Last Taken Unknown] I have personally reviewed and updated: family history, medical history - Past Medical History cancer (Colon, duodenal) - Surgical History Reports: colectomy Additional surgical history: Duodenal, CBD stent - Family History Positive for: cancer (Colon in multiple family members) - Social History Smoking Status: Former smoker Review of Systems Review of Systems: ROS: 10pt was reviewed & negative except for what was stated in HPI & below Physical Exam Physical Exam: Temp Pulse Resp BP Pulse Ox 36.8 C 104 H 18 125/65 H 93 05/20/18 01:07 05/20/18 01:07 05/20/18 01:07 05/20/18 01:07 05/20/18 01:07 Constitutional: no apparent distress, not in pain Eyes: PERRL, EOMI Ears, Nose, Mouth, Throat: moist mucous membranes, no oral mucosal ulcers Cardiovascular: regular rate and rhythym, no murmur, rub, or gallop Respiratory: no respiratory distress, clear to auscultation Gastrointestinal: normoactive bowel sounds, soft, non-tender abdomen Skin: warm, normal color Neurologic: AAOx3, CN II-XII Intact Psychiatric: interacting appropriately, not anxious Lab Data & Imaging Review 05/19/18 22:55 05/19/18 22:55 WBC 10.86 10^3/uL (3.80-9.50) H 05/19/18 22:55 RBC 4.05 10^6/uL (4.40-6.38) L 05/19/18 22:55 Hgb 12.8 g/dL (13.7-17.5) L 05/19/18 22:55 Hct 37.0 % (40.0-51.0) L 05/19/18 22:55 MCV 91.4 fL (81.5-99.8) 05/19/18 22:55 MCH 31.6 pg (27.9-34.1) 05/19/18 22:55 MCHC 34.6 g/dL (32.4-36.7) 05/19/18 22:55 RDW 12.3 % (11.5-15.2) 05/19/18 22:55 Plt Count 533 10^3/uL (150-400) H 05/19/18 22:55 MPV 8.7 fL (8.7-11.7) 05/19/18 22:55 Neut % (Auto) 86.1 % (39.3-74.2) H 05/19/18 22:55 Lymph % (Auto) 4.5 % (15.0-45.0) L 05/19/18 22:55 [place] % (Auto) 6.5 % (4.5-13.0) 05/19/18 22:55 Eos % (Auto) 1.5 % (0.6-7.6) 05/19/18 22:55 Baso % (Auto) 0.3 % (0.3-1.7) 05/19/18 22:55 Nucleat RBC Rel Count 0.0 % (0.0-0.2) 05/19/18 22:55 Absolute Neuts (auto) 9.35 10^3/uL (1.70-6.50) H 05/19/18 22:55 Absolute Lymphs (auto) 0.49 10^3/uL (1.00-3.00) L 05/19/18 22:55 Absolute Monos (auto) 0.71 10^3/uL (0.30-0.80) 05/19/18 22:55 Absolute Eos (auto) 0.16 10^3/uL (0.03-0.40) 05/19/18 22:55 Absolute Basos (auto) 0.03 10^3/uL (0.02-0.10) 05/19/18 22:55 Absolute Nucleated RBC 0.00 10^3/uL (0-0.01) 05/19/18 22:55 Immature Gran % 1.1 % (0.0-1.1) 05/19/18 22:55 Immature Gran # 0.12 10^3/uL (0.00-0.10) H 05/19/18 22:55 RBC/WBC/PLT Morphology TNP 05/19/18 22:55 Platelet Estimate TNP 05/19/18 22:55 PT 15.6 SEC (12.0-15.0) H 05/19/18 22:55 INR 1.22 (0.83-1.16) H 05/19/18 22:55 APTT 33.5 SEC (23.0-38.0) 05/19/18 22:55 VBG Lactic Acid 1.4 mmol/L (0.7-2.1) 05/19/18 22:55 Sodium 128 mEq/L (135-145) L 05/19/18 22:55 Potassium 4.4 mEq/L (3.5-5.2) 05/19/18 22:55 Chloride 98 mEq/L (97-110) 05/19/18 22:55 Carbon Dioxide 21 mEq/l (22-31) L 05/19/18 22:55 Anion Gap 9 mEq/L (6-14) 05/19/18 22:55 BUN 11 mg/dL (7-23) 05/19/18 22:55 Creatinine 0.8 mg/dL (0.7-1.3) 05/19/18 22:55 Estimated GFR > 60 05/19/18 22:55 Glucose 102 mg/dL (70-100) H 05/19/18 22:55 Calcium 8.8 mg/dL (8.5-10.4) 05/19/18 22:55 Total Bilirubin 0.7 mg/dL (0.1-1.4) 05/19/18 22:55 Conjugated Bilirubin 0.5 mg/dL (0.0-0.5) 05/19/18 22:55 Unconjugated Bilirubin 0.2 mg/dL (0.0-1.1) 05/19/18 22:55 AST 50 IU/L (17-59) 05/19/18 22:55 ALT 58 IU/L (21-72) 05/19/18 22:55 Alkaline Phosphatase 245 IU/L (38-126) H 05/19/18 22:55 Total Protein 6.9 g/dL (6.3-8.2) 05/19/18 22:55 Albumin 3.7 g/dL (3.5-5.0) 05/19/18 22:55 Lipase 71 IU/L (23-300) 05/19/18 22:55 Procalcitonin 0.59 ng/mL (0.02-0.10) H 05/19/18 22:55 Nasal Influenza A PCR NEGATIVE FOR FLU A (NEGATIVE) 05/19/18 23:05 Nasal Influenza B PCR NEGATIVE FOR FLU B (NEGATIVE) 05/19/18 23:05 Stool Occult Bld Scrn Cancelled 05/19/18 23:05 RSV (PCR) NEGATIVE FOR RSV (NEGATIVE) 05/19/18 23:05 Patient ABO/Rh A POSITIVE 05/19/18 22:55 Antibody Screen NEGATIVE 05/19/18 22:55 Assessment & Plan Assessment: 67 yo M w/ hx of colon and duodenal CA presents with likely viral illness and possible melena. Plan: 1. Fever, chills, diarrhea - Likely viral syndrome noting recent sick contacts. CXR from earlier today (personally reviewed/interpreted) demonstrates only mild bronchitis. - Admit for observation - Continue mIVF overnight - Will check respiratory PCR, GI PCR, and procalcitonin - Blood cultures pending from ED visit earlier today 2. Possible melena - Patient reports his last two diarrheal episodes were dark. - Monitor CBC - PPI IV BID - Consider GI consult if melena confirmed or CBC trends downward 3. Duodenal CA - S/p duodenal stent earlier this year. He is currently receiving chemotherapy with last dose 2 weeks ago. 4. Hx colon CA - S/p R hemicolectomy. 5. Hyponatremia - Likely 2/2 dehydration, recheck BMP after IVF. Diet - Regular Code - Full Ppx - SCDs Dispo - Admit under observation status
[2018-05-20] MEDS: GUAIFENESIN/DM 10 ML UDCUP PO PRN ×2 (02:52→10:28)
[2018-05-20 05:18] LABS: PLATELET COUNT 398 10^3/uL (150-400)
[2018-05-20] MEDS: PANTOPRAZOLE SODIUM 40 MG VIAL IVP SCH ×2 (10:29→20:24)
--- NOTE | 2018-05-20 11:01 | ASMTCMCOM ---
CM Note CM Note Notes: Patient is a 67 year old male admitted via ED for weakness and viral like symptoms. History of duodenal cancer s/p colectomy and now on chemotherapy. Needs to be determined. Plan: TBD Date Signed: 05/20/2018 11:00 AM Electronically Signed By:Edna Trejo RN
--- NOTE | 2018-05-20 15:23 | GCON ---
INPATIENT CONSULTATION NOTE REFERRING PHYSICIAN: Dr. Ruby REQUESTING PHYSICIAN: Dr. Ruby. REASON FOR CONSULTATION: Melena and anemia. HISTORY: Briefly, the patient is a pleasant 67-year-old male with a past medical history significant for colon and duodenal cancer. He presented to the emergency room yesterday with fever, chills, and diarrhea. He reports he had a 3-4 day illness. He had uncontrollable shaking, chills, and a temper ature to 101. He did have sick contacts. 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 On the day of his admission, he reported that there was a very dark tint to his bow el movements, even a small amount of bright red blood while wiping. He had another bowel movement in the hospital, which he describes as dark and tar-like. He has no previous history of bleeding like this. He reports he does take iron, which he reports he needs related to being on his underlying venkatesh motherapy. In the summer of this year, he underwent biliary and duodenal stenting in the setting of malignancy. He reports he has had no eating or other complications since that time. ALLERGIES: None. MEDICATIONS: Outpatient medicines are Keytruda, multivitamin, and Zyrtec. PAST MEDICAL HISTORY: Includes colon and duodenal cancer. PAST SURGICAL HISTORY: Includes duodenal and CBD stent, as well as colectomy. FAMILY HISTORY: Positive for colon cancer in multiple family members. SOCIAL HISTORY: He is a former smoker. He does not use drugs or drink alcohol currently. REVIEW OF SYSTEMS: A complete 10-system review was undertaken with the patient and is negative, exce pt for those details described in the History of Present Illness. PHYSICAL EXAM: GENERAL: This is a well-developed male, in no apparent distress. HEENT: His pupils are equal, round, reactive to light and accommodation. His sclerae are nonicteric. His oropharynx is clear. NECK: Supple, without lymphadenopathy. HEART: Regular, without murmur. ABDOMEN: Soft, nontender, with normoactive bowel sounds. EXTREMITIES: Free of cyanosis, clubbing, and edema. KURT RO: Grossly nonfocal. SKIN: Warm and dry. PSYCH: Exam reveals normal mood and affect. LABORATORY TESTING: Hematocrit of 30.0. This represents a fall from his admission hematocrit of 38. 2, which also represents a fall from his recent baseline hematocrits, which have been in the mid to l ow 40s. His hemoglobin this morning is 10.1. INR of 1.22. Sodium of 133, potassium of 4.6, chlorid e of 108, bicarb of 22, BUN of 7, creatinine of 0.7. AST of 50, ALT of 58, alkaline phosphatase of 2 45, total bilirubin of 0.7. Most recent ferritin, of note, was low in September of 2017. IMPRESSION/RECOMMENDATIONS: The patient has been admitted to the hospital with fever and diarrhea. During his hospital stay, he was noted to have a fall in his hematocrit, associated with some dark st ools. The concern, therefore, is for upper intestinal GI bleeding. He is certainly at risk for this given the presence of a duodenal stent and known upper GI malignancy. The differential diagnosis mi ght also include peptic ulcer disease, Dieulafoy lesion, AVM, etc. It is also possible that his dark stool is related to iron supplements, and that he has not had acute bleeding, but this would not exp park his lower blood count. At this time, I recommend the patient remain on a clear liquid diet with proton pump inhibitor. We w ill make him n.p.o. and consider repeat upper endoscopy tomorrow. /[id number]/MODL
--- NOTE | 2018-05-20 15:33 | HOSPPROG ---
Hospitalist Progress Note Assessment/Plan: The patient is a 67-year-old male with PMH colon and duodenal cancer who was admitted for malaise, fevers/rigors, and melena. The patient ASSESSMENT/PLAN: Fevers/rigors, unk source Acute UGIB w/ melena -DDx etiology - duodenal/biliary stent compliation, peptic ulcer (2/2 NSAID use/stress), known cancer, acute infection -Stool pathogen test negative. -GI consulted - recs appreciated. I have d/w GI. Plan for EGD in AM. -clear liquid diet for now, NPO p12. -PPI BID -blood Cx pending Duodenal and colon cancer -gets chemo [id number]. -s/p duodenal/CBD stent Acute blood loss on chronic anemia -trend H/H. -2/2 GIB and cancer. Hyponatremia, improving -continue IVF. VTE prophylaxis: SCDs Code Status: Full code Status: Observation status Disposition: med surg. ____ SUBJECTIVE: Today pt feels okay. Still having black BM and roberto BRB per rectum when he wipes. OBJECTIVE: Physical Exam: General: The patient is a male who is alert and in no acute distress. HEENT: normocephalic, extraocular movements intact, conjunctivae pale. Mucous membranes dry. Neck: trachea midline, no visible masses. CV: +S1/S2, RRR, no MRG. Resp: unlabored, CTAB no RRW. Abd: soft and minimally distended. Bowel sounds present. Non tender throughout. Musculoskeletal: Normal muscle tone/bulk. Observe patient ambulating. Neuro: cranial nerves II XII grossly intact. Intact gross motor and sensory function. Psych: Appropriate mood and appropriate affect. Skin: Mild pallor. No petechiae. Heme/lymph: No peripheral edema at bilateral lower extremities. Labs/Imaging/Other Tests: Personally reviewed/interpreted. Objective: Vital Signs Temp Pulse Resp BP Pulse Ox 36.8 C 90 16 119/66 92 05/20/18 12:34 05/20/18 12:34 05/20/18 12:34 05/20/18 12:34 05/20/18 12:34 Microbiology 05/20/18 11:11 Gastrointestinal Tract Panel (PCR) - Final Stool No Organism Detected By Pcr Laboratory Results 05/20/18 11:15 05/20/18 04:46 05/19/18 05/20/18 05/21/18 05:59 05:59 05:59 Intake Total 2350 450 Output Total 1000 450 Balance 1350 0 PT 15.6 SEC (12.0-15.0) H 05/19/18 22:55 INR 1.22 (0.83-1.16) H 05/19/18 22:55 - Time Spent With Patient Time Spent with Patient: greater than 35 minutes Time Spent with Patient: Greater than 35 minutes spent on this patients care, greater than 50% of time spent counseling, educating, and coordinating care regarding the above mentioned plan. ICD10 Worksheet Patient Problems: Problems Problem Status Onset Fever Acute Rigors Acute Gastric outlet obstruction Acute
[2018-05-21 05:18] LABS: PLATELET COUNT 446 10^3/uL (150-400)
[2018-05-21] MEDS: NS 1,000 ML IV SCH (06:05)
[2018-05-21] MEDS: PANTOPRAZOLE SODIUM 40 MG VIAL IVP SCH (08:07)
[2018-05-21] MEDS ORDERED: LR 1,000 ML IV ONE (08:47)
--- NOTE | 2018-05-21 08:58 | PDANEPAE ---
ANE History of Present Illness EGD ANE Past Medical History - Cardiovascular History Hx Hypertension: No Hx Arrhythmias: No Hx Chest Pain: No Hx Coronary Artery / Peripheral Vascular Disease: No Hx CHF / Valvular Disease: No Hx Palpitations: No - Pulmonary History Hx COPD: No Hx Asthma/Reactive Airway Disease: No Hx Recent Upper Respiratory Infection: No Hx Oxygen in Use at Home: No Hx Sleep Apnea: No Sleep Apnea Screening Result - Last Documented: Negative - Endocrine History Hx Diabetes: No - Cancer History Hx Cancer: Yes Cancer History Comment: duodenal, colon - GI History Hx Gastrointestinal Disorders: Yes ANE Review of Systems Review of systems is: negative Review of Systems: - Exercise capacity Exercise capacity: >=4 METS ANE Patient History - Allergies Allergies/Adverse Reactions: No Known Allergies Allergy (Unverified 05/19/18 14:20) - Home Medications Home medications: home medication list seen and reviewed Home Medications: Multivitamins W-Minerals [Thera M Plus Tablet (*)] 1 each PO DAILY 10/04/17 [ Last Taken Unknown] Cetirizine [ZyrTEC 10 mg (*)] 10 mg PO DAILY 05/19/18 [Last Taken Unknown] Pantoprazole Sodium 40 mg PO DAILY PRN 05/20/18 [Last Taken Unknown] - NPO status NPO Status: no food or drink >8 hours NPO Since - Liquids (Date): 05/21/18 NPO Since - Liquids (Time): 00:00 NPO Since - Solids (Date): 05/20/18 NPO Since - Solids (Time): 00:00 - Anes Hx Anes Hx: no prior problems - Smoking Hx Smoking Status: Former smoker - Family Anes Hx Family Anes Hx: none ANE Labs/Vital Signs - Labs Result Diagrams: 05/21/18 05:11 05/21/18 05:11 - Vital Signs Vital Signs: reviewed preoperatively; see RN documention for details Blood Pressure: 133/65 Heart Rate: 100 Respiratory Rate: 15 O2 Sat (%): 93 Weight: 59.874 kg ANE Physical Exam - Airway Neck exam: FROM Mallampati Score: Class 3 Mouth exam: poor dentition - Pulmonary Pulmonary: no respiratory distress - Cardiovascular Cardiovascular: regular rate and rhythym - ASA Status ASA Status: III ANE Anesthesia Plan Total IV Anesthesia: Yes
[2018-05-21] MEDS ORDERED: PROPOFOL/EMULSION 500 MG/50 ML BOTTLE IV ONE (08:59)
[2018-05-21] MEDS ORDERED: LIDOCAINE 2% 100 MG/5 ML SYR ONE (09:14)
[2018-05-21] MEDS ORDERED: NALOXONE HCL 0.4 MG/ML INJ IVP PRN (09:19)
[2018-05-21] MEDS ORDERED: fentaNYL 100 MCG/2 ML INJ IVP PRN (09:19)
[2018-05-21] MEDS ORDERED: ONDANSETRON 4 MG/2 ML VIAL IVP PRN (09:19)
[2018-05-21] MEDS ORDERED: DEXAMETHASONE 4 MG/ML VIAL IVP PRN (09:19)
[2018-05-21] MEDS ORDERED: ALBUTEROL 3 ML DEYVIAL IH PRN (09:19)
[2018-05-21] MEDS ORDERED: MEPERIDINE 25 MG/0.5 ML AMP IVP PRN (09:19)
--- NOTE | 2018-05-21 09:19 | PDGENHP ---
History & Physical Chief Complaint: tarry stools History of Present Illness: 67 year old male with duodenal cancer s/p stenting presents for evaluation of melanotic stools Pertinent Past, Social, Family History: see Anesthesiology note for details. Relevant Physical Exam: Gen: AAO x 3. HEENT: anicteric. CV: RRR +s1s2. Lungs : CTAB. Abd: soft, nt, + bs Cardiorespiratory Assessment: ASA 3
--- NOTE | 2018-05-21 09:20 | POSTANESTH ---
Post Anesthetic Evaluation Cardiovascular Status: Similar to Pre-Op Cond Respiratory Status: Similar to Pre-op Cond. Level of Consciousness/Mental Status: Can Participate in Eval, Moderately Sleepy Pain Control: Adequate, Prn Tx Ordered Nausea/Vomiting Control: Adequate, Prn Tx Ordered Complications Possibly Related to Anesthesia: None Noted
--- NOTE | 2018-05-21 10:11 | GIREPORT ---
[facility] - Endoscopy Department Patient Name: Jr Villaseñor Procedure Date: 05/21/2018 9:00 AM Patient Type: Inpatient Attending MD/ ER Physician: Romeo Arambula MD Procedure: Upper GI endoscopy Indications: Melena Patient Profile: 67 year old male with a history of duodenal cancer s/p CBD and duodenal stent who presents for evaluation of black, tarry stools. Providers: Romeo Arambula MD Medicines: Monitored Anesthesia Care Complications: No immediate complications. Estimated blood loss: None. Description of Procedure: After obtaining informed consent, the endoscope was passed under direct vision. Throughout the procedure, the patient's blood pressure, pulse, and oxygen saturations were monitored continuously. The Endoscope was intro duced through the mouth, and advanced to the second part of duodenum. [facility] GI endoscopy was accomplished without difficulty. The patient tolerated th e procedure well. Findings: The examined esophagus was normal. Erythematous mucosa was found in the entire examined stomach. A previously placed metal duodenal stent was seen in the second portion of the duodenum and the bulb. The mucosa was ulcerated, eophytic, erythema tous and friable throughout the 2nd portion of the duodenum consistent with tumor. Estimated Blood Loss: Estimated blood loss: none. Post Op Diagnosis: - Normal esophagus. - Erythematous mucosa in the stomach. - Metal duodenal stent in the duodenum with exophytic, ulcerated mucosa consistent with tumor cells. - Etiology? Suspect bleeding from malignancy due to ulcerations etc. No site for treatment visualized. Recommend PPI BID and NO NSAIDs. Ok to discha rge home soon. Recommendation: - Return patient to [facility] for ongoing care. - Advance diet as tolerated. - Continue present medications. - Await pathology results. - No aspirin, ibuprofen, naproxen, or other non-steroidal anti-inflamma tory drugs. - GI will sign off. - Thank you for allowing me to participate in the care of your patient. Attending Participation: I personally performed the entire procedure. Romeo Arambula MD Romeo Arambula MD 05/21/2018 10:11:19 AM This report has been signed electronicallyRomeo Arambula MD Number of Addenda: 0 Note Initiated On: 05/21/2018 9:00 AM [email or web address]
--- NOTE | 2018-05-21 11:34 | PDDCSUM ---
Discharge Summary Discharge Summary: Date of Admission: 05/20/2018 Date of Discharge: 05/21/2018 Discharge Diagnoses: Fevers/rigors, unk source Acute on chronic UGIB w/ melena - stabilized Duodenal cancer, s/p metal stent Acute blood loss on chronic anemia, stable, 2/2 cancer Hemorrhoids, bleeding - stable Hyponatremia, stable H/o colon cancer Admission Diagnoses: Fever, chills, diarrhea Possible melena Duodenal CA H/o colon CA Hyponatremia Consultants: GI - Dr. Bullard. Hospital Course: The patient is a 67-year-old male with active duodenal cancer who presented with fever, chills, and diarrhea/melena. Workup for source of infection was unremarkable. GI pathogen panel and respiratory panel were both negative for common organisms. Blood cultures are pending, but preliminarily are negative. Patient underwent EGD which identified erythematous mucosa in stomach, metal duodenal stent in duodenum with exophytic, ulcerated mucosa of tumor cells. Patient was recommended to continue his Protonix twice a day instead of once a day and avoid all NSAIDs. Patient admitted he had been taking ibuprofen up to 8 tablets a day as needed for fevers/chills. He is recommended to take acetaminophen if needed instead. GI bleeding had slowed down in response to PPI therapy twice a day and hemoglobin was stable at 9.6 on the day of discharge. Patient was also referred for an outpatient Palliative consult, to address goals of care and work on enhancing quality of life with cancer. Physical Exam: Gen: alert, in NAD, comfortable. Abd: SND. Nontender. Condition: Fair. Discharged to: Home. Pertinent tests/labs/imaging: See hospital course above. Medications: Please see med rec form. No new meds. Protonix increased to BID dosing. Special instructions: Increase Protonix to twice a day to help with bleeding. DO NOT TAKE NSAIDS LIKE IBUPROFEN BECAUSE THEY INCREASE BLEEDING/ULCERATION IN YOUR GUT. Return to ED if symptoms worsen. Follow up on pending blood culture results with your PCP or Oncologist. Follow up: Oncologst in 3-5 days. PCP in 1 week.
[2018-05-21 12:12] VITALS: BP 114/62
--- NOTE | 2018-05-21 14:22 | ASMTLACE ---
LACE Length of stay for Answers: 2 days current admission Acuity / Level of Answers: No Care: Did the patient have an inpatient admission? Comorbidities - select Answers: Any tumor (including all that apply lymphoma or leukemia) Palliative care / End of life trajectory # of Emergency department Answers: 1-2 visits in the last 6 months Score: 7 Date Signed: 05/21/2018 02:21 PM Electronically Signed By:BRENDAN Bass
--- NOTE | 2018-05-21 14:22 | ASMTCMCOM ---
CM Note CM Note Notes: Pt medically stable for d/c, no CM d/c needs identified. Date Signed: 05/21/2018 02:22 PM Electronically Signed By:BRENDAN Bass
== END 2018-05-21 13:53 | disposition home or self-care (01) ==
LOC: F1N 05-20 00:46
PROVIDERS: ADMIT Student in an Organized Health Care Education/Training Program; ATTEND Internal Medicine
PROC: 0DJ08ZZ Inspection of Upper Intestinal Tract, Via Natural or Artificial Opening Endoscopic (ICD-10-PCS; principal; 2018-05-20)
DX: R50.9 Fever, unspecified (principal); K92.2 Gastrointestinal hemorrhage, unspecified; R19.7 Diarrhea, unspecified; C17.0 Malignant neoplasm of duodenum; D64.81 Anemia due to antineoplastic chemotherapy; D63.8 Anemia in other chronic diseases classified elsewhere; D62 Acute posthemorrhagic anemia; E86.0 Dehydration; K64.9 Unspecified hemorrhoids; E87.1 Hypo-osmolality and hyponatremia; K27.9 Peptic ulcer, site unspecified, unspecified as acute or chronic, without hemorrhage or perforation; Z85.038 Personal history of other malignant neoplasm of large intestine; Z87.891 Personal history of nicotine dependence; Z80.0 Family history of malignant neoplasm of digestive organs
CPT/HCPCS: 43235; G0378; J1642; J2001; J2704; 96374

== ENCOUNTER → 2018-05-19 | Outpatient (CLI) | payer OTHER | LOC: FIMAGING 10:53 | PROVIDERS: ATTEND Physician Assistant | DX: J44.1 Chronic obstructive pulmonary disease with (acute) exacerbation (principal); Z85.038 Personal history of other malignant neoplasm of large intestine ==

== ENCOUNTER 2018-05-27 11:32 | Inpatient (IN) | payer OTHER ==
--- NOTE | 2018-05-27 13:13 | EDPHY ---
H & P Stated Complaint: weakness, malaise, fever, cold sweats Time Seen by Provider: 05/27/18 12:55 HPI/ROS: CHIEF COMPLAINT: Fever, generalized weakness HISTORY OF PRESENT ILLNESS: 67-year-old male with stomach cancer presents with fever and generalized weakness. History of intermittent fever for at least 1 month. Recent admission for evaluation of fever was unremarkable. He was at his oncologist's office today for a scheduled chemotherapy. However laboratory tests revealed markedly leukocytosis and he was sent here for further evaluation. He had a fever of 102 last evening. No localizing symptoms. No vomiting or diarrhea. Ongoing mild abdominal pain, relieved with Tylenol. Occasional cough recently, now resolved. Prior chest x-ray unremarkable. REVIEW OF SYSTEMS: complete 10 point ROS reviewed and is negative except for the noted elements in the HPI Source: Patient - Personal History Current Tetanus/Diphtheria Vaccine: Yes Current Tetanus Diphtheria and Acellular Pertussis (TDAP): Yes - Medical/Surgical History Hx Asthma: No Hx Chronic Respiratory Disease: No Hx Diabetes: No Hx Cardiac Disease: No Hx Renal Disease: No Hx Cirrhosis: No Hx Alcoholism: No Hx HIV/AIDS: No Hx Splenectomy or Spleen Trauma: No Other PMH: Stomach CA- on chemo, Colon CA, colon surgery, chest port - Social History Smoking Status: Former smoker Alcohol Use: Sober Drug Use: None - Physical Exam Exam: General Appearance: Alert, pleasant, nontoxic-appearing Eyes: Pupils equal and round, no conjunctival pallor or injection ENT, Mouth: Mucous membranes slightly dry, no oral lesions Neck: Normal inspection Respiratory: Lungs are clear to auscultation Cardiovascular: Regular rate and rhythm Gastrointestinal: Abdomen is soft, mild epigastric tenderness Neurological: A&O, nonfocal exam Skin: Warm and dry, no rash Extremities: Normal inspection on exposed skin Psychiatric: Mood and affect normal Constitutional: Initial Vital Signs Temperature (C) 36.4 C 05/27/18 11:36 Heart Rate 104 H 05/27/18 11:36 Respiratory Rate 18 05/27/18 11:36 Blood Pressure 134/76 H 05/27/18 11:36 O2 Sat (%) 96 05/27/18 11:36 O2 Delivery Mode Room Air Allergies/Adverse Reactions: No Known Allergies Allergy (Unverified 05/19/18 14:20) Home Medications: Medication Instructions Recorded Multivitamins W-Minerals [Thera M 1 each PO DAILY 05/21/18 Plus Tablet (*)] Cetirizine [ZyrTEC 10 mg (*)] 10 mg PO DAILY 05/19/18 Acetaminophen [Tylenol 325mg (*)] 650 mg PO Q6 PRN 05/27/18 Pantoprazole Sodium [Protonix 40mg 40 mg PO BID PRN 05/27/18 (*)] Medical Decision Making - Diagnostics Imaging Results: Imaging Impressions Abdomen CT 05/27/18 14:17 Impression: 1. Intrahepatic portal vein occlusion, predominantly affecting the left lobe and majority of the right. Heterogeneity of the liver is likely perfusional, but there are tiny hypodense foci within the right hepatic lobe, as described, which may represent microabscesses given patient's presenting symptoms. Chronic SMV occlusion. 2. Duodenal stent is in stable position but there is intraluminal debris. No dilatation of the stomach. The common bile duct stent is also in stable position with intraluminal debris. No significant intrahepatic ductal dilatation. Mild periportal edema. 3. The duodenal mass appears stable to slightly increased in size. Retroperitoneal adenopathy has increased in size. 4. Cholelithiasis. 5. No acute process in the chest. Findings and recommendations discussed with BERTRAM CELIS at 1549 hour, 2018. Chest CT 05/27/18 14:17 Impression: 1. Intrahepatic portal vein occlusion, predominantly affecting the left lobe and majority of the right. Heterogeneity of the liver is likely perfusional, but there are tiny hypodense foci within the right hepatic lobe, as described, which may represent microabscesses given patient's presenting symptoms. Chronic SMV occlusion. 2. Duodenal stent is in stable position but there is intraluminal debris. No dilatation of the stomach. The common bile duct stent is also in stable position with intraluminal debris. No significant intrahepatic ductal dilatation. Mild periportal edema. 3. The duodenal mass appears stable to slightly increased in size. Retroperitoneal adenopathy has increased in size. 4. Cholelithiasis. 5. No acute process in the chest. Findings and recommendations discussed with BERTRAM CELIS at 1549 hour, 2018. Imaging: Discussed imaging studies w/ order caller Radiologist ED Course/Re-evaluation: I called the patient's provider at [facility]. She requested the patient be admitted to the hospitalist service. As well, a CT scan of the chest abdomen and pelvis requested to evaluate for etiology of fever. The hospitalist service was consulted for admission. I consulted Dr. Víctor Dominguez , who will see the patient in the hospital. CT reveals multiple micro abscesses in the liver. As well urinalysis consistent with urinary tract infection. A urine culture was sent. Rocephin and Flagyl IV given. Differential Diagnosis: Differential diagnosis includes pyelonephritis, cholecystitis, influenza, cellulitis, pneumonia, abscess, meningitis. - Data Points Medications Given: Acetaminophen (Tylenol) 650 mg PO Q4HRS PRN PRN Reason: Pain, Mild/Fever, Can Take PO Stop: 11/23/18 17:36 Last Admin: 05/27/18 20:38 Dose: 650 mg Metronidazole/Sodium Chloride (Flagyl 500 Mg (Premix)) 100 mls @ 100 mls/hr IV Q8H MAURICIO PRN Reason: Protocol Stop: 06/26/18 17:59 Last Admin: 05/27/18 18:09 Dose: 100 mls Discontinued Medications Sodium Chloride (Ns) 1,000 mls @ 0 mls/hr IV ONCE ONE; Wide Open PRN Reason: Protocol Stop: 05/27/18 13:15 Last Admin: 05/27/18 13:40 Dose: 1,000 mls Ceftriaxone Sodium/Dextrose (Rocephin 1 Gm (Premix)) 50 mls @ 100 mls/hr IV EDNOW ONE PRN Reason: Protocol Stop: 05/27/18 16:45 Last Admin: 05/27/18 16:37 Dose: 50 mls Metronidazole/Sodium Chloride (Flagyl 500 Mg (Premix)) 100 mls @ 100 mls/hr IV ONCE ONE PRN Reason: Protocol Stop: 05/27/18 17:16 Last Admin: 05/27/18 18:09 Dose: Not Given Pantoprazole Sodium (Protonix) 40 mg PO DAILY [facility] Stop: 11/23/18 17:44 Last Admin: 05/27/18 18:17 Dose: Not Given Departure - Departure Disposition: [facility] Acute Clinical Impression: liver microabscesses Fever Qualifiers: Fever type: unspecified Qualified Code(s): R50.9 - Fever, unspecified Condition: Fair
[2018-05-27] MEDS ORDERED: NS 1,000 ML IV ONE (13:14)
[2018-05-27] MEDS ORDERED: IOPAMIDOL (ISOVUE 370) 100 ML BTL IV ONE (14:24)
[2018-05-27] MEDS ORDERED: HYDROCODONE/APAP 5/325 TAB PO PRN (17:37)
[2018-05-27] MEDS ORDERED: oxyCODONE IR 5 MG TAB PO PRN (17:37)
[2018-05-27] MEDS ORDERED: ONDANSETRON DISINTEGRATING 4 MG TAB PO PRN (17:37)
[2018-05-27] MEDS ORDERED: ONDANSETRON 4 MG/2 ML VIAL IVP PRN (17:37)
--- NOTE | 2018-05-27 17:44 | PDGENHP ---
History and Physical - Chief Complaint fever - History of Present Illness 67-year-old male with stomach cancer presents with fever and generalized weakness. History of intermittent fever for at least 1 month. Recent admission for evaluation of fever was unremarkable. He was at his oncologist's office today for a scheduled chemotherapy. However laboratory tests revealed markedly leukocytosis and he was sent here for further evaluation. He had a fever of 102 last evening. No localizing symptoms. No vomiting or diarrhea. Ongoing mild abdominal pain, relieved with Tylenol. Occasional cough recently, now resolved. Prior chest x-ray unremarkable. C/o Right sided abd pain. Imaging is c/w intrahepatic portal vein thrombosis and possible micro abscesses PMH: Stomach CA- on chemo, Colon CA, colon surgery, chest port - Social History Smoking Status: Former smoker Alcohol Use: Sober Drug Use: None FmHx: Non contributory History Information - Allergies/Home Medication List Allergies/Adverse Reactions: No Known Allergies Allergy (Unverified 05/19/18 14:20) Home Medications: Multivitamins W-Minerals [Thera M Plus Tablet (*)] 1 each PO DAILY 10/04/17 [ Last Taken Unknown] Cetirizine [ZyrTEC 10 mg (*)] 10 mg PO DAILY 05/19/18 [Last Taken Unknown] Acetaminophen [Tylenol 325mg (*)] 650 mg PO Q6 PRN 05/27/18 [Last Taken Unknown] Pantoprazole Sodium [Protonix 40mg (*)] 40 mg PO BID PRN 05/27/18 [Last Taken Unknown] I have personally reviewed and updated: medical history, social history - Past Medical History cancer (Colon, duodenal) - Surgical History Reports: colectomy Additional surgical history: Duodenal, CBD stent - Family History Positive for: cancer (Colon in multiple family members) - Social History Smoking Status: Former smoker Alcohol Use: Sober Drug Use: None Review of Systems Review of Systems: ROS: 10pt was reviewed & negative except for what was stated in HPI & below Physical Exam Physical Exam: Temp Pulse Resp BP Pulse Ox 36.9 C 115 H 18 141/69 H 91 L 05/27/18 17:22 05/27/18 17:22 05/27/18 17:22 05/27/18 17:22 05/27/18 17:22 Constitutional: chronically ill appearing Eyes: PERRL Ears, Nose, Mouth, Throat: moist mucous membranes, hearing normal Cardiovascular: regular rate and rhythym, no murmur, rub, or gallop, No edema Respiratory: no respiratory distress, no rales or rhonchi, clear to auscultation Gastrointestinal: normoactive bowel sounds, tenderness (mild RUQ tenderness), No distension Skin: warm Neurologic: AAOx3 Psychiatric: interacting appropriately, not anxious, not encephalopathic Lymph, Heme, Immunologic: No petechiae Lab Data & Imaging Review Urine Color NEELIMA 05/27/18 15:42 Urine Appearance CLEAR 05/27/18 15:42 Urine pH 6.0 (5.0-7.5) 05/27/18 15:42 Ur Specific [place] > 1.035 (1.002-1.030) H 05/27/18 15:42 Urine Protein 1+ (NEGATIVE) H 05/27/18 15:42 Urine Ketones TRACE (NEGATIVE) H 05/27/18 15:42 Urine Blood 1+ (NEGATIVE) H 05/27/18 15:42 Urine Nitrate NEGATIVE (NEGATIVE) 05/27/18 15:42 Urine Bilirubin NEGATIVE (NEGATIVE) 05/27/18 15:42 Urine Urobilinogen 2.0 EU (0.2-1.0) H 05/27/18 15:42 Ur Leukocyte Esterase NEGATIVE (NEGATIVE) 05/27/18 15:42 Urine RBC 5-10 /hpf (0-3) H 05/27/18 15:42 Urine WBC 10-15 /hpf (0-3) H 05/27/18 15:42 Ur Epithelial Cells NONE SEEN /lpf (NONE-1+) 05/27/18 15:42 Urine Bacteria TRACE /hpf (NONE SEEN) H 05/27/18 15:42 Hyaline Casts 5-15 /lpf (0-1) 05/27/18 15:42 Urine Mucus TRACE /lpf (NONE-1+) 05/27/18 15:42 Urine Glucose NEGATIVE (NEGATIVE) 05/27/18 15:42 Assessment & Plan Assessment: #Fever #Portal Vein Thrombosis, 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 I d/w with Dr. Dominguez and with Dr. Arambula. Dr. Arambula thinks he has a 30-40% chance of bleeding on AC. Will hold off on AC. Onc to consult. Tumor burden has not changes significantly would consult Palliative care. Need to determine overall prognosis and if hospice appropriate Appropriate home meds
[2018-05-27] MEDS ORDERED: PANTOPRAZOLE SODIUM 40 MG TAB PO SCH (17:45)
--- NOTE | 2018-05-27 17:45 | GCON ---
The patient is a very pleasant 67-year-old male admitted for evaluation of abdominal pain and portal vein thrombosis. To review, he was diagnosed in July of 2017 with a malignancy obstructing the duod enum. He presented with iron deficiency anemia and imaging showed a large mass in the abdomen and th is was confirmed on upper GI endoscopy. This was arising from what appeared to be the 2nd portion of the duodenum and occupied almost the entire lumen. 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 He did not have evidence of metastatic disease, but it was felt to be inoperable. He was started on pembrolizumab and receiv ed 2 cycles with significant shrinkage of his tumor. He did, however, develop a duodenal obstruction in September of 2017. At that time, he had both a common bile duct stent placed and because of a perforati on, had a duodenal stent placed. He did well, continuing on pembrolizumab with ongoing decrease in t he size of his mass, although it was still present as of February. Recently he was hospitalized with melena and a significant anemia. He underwent an upper GI endoscopy on 05/21/2018, which showed some evidence of an exophytic ulcerated mucosa of tumor cells around the duodenal stent, which appeared t o be actively bleeding. Of note, he had been taking some NSAIDs prior to this for fevers and chills. He was discharged, but has continued to not feel well and has had some right upper quadrant discomf ort and says he has been having fevers at home. Today in the office, he was noted to have an elevate d white cell count of 22,000 with a hemoglobin of 12.1 and hematocrit of 36, platelets of 716,000. C T scan was obtained which showed a new portal vein thrombosis in both the right and left portal vein since February. There were also changes in the liver, either consistent with micro abscesses or perfu tangela abnormality from the portal vein thrombosis. He was therefore admitted for evaluation. Current ly, he feels somewhat poorly and has some discomfort in his right upper quadrant. PAST MEDICAL HISTORY: Significant for colon cancer in 2000, resected without evidence of recurrence. 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 REVIEW OF SYSTEMS: Otherwise negative. PHYSICAL EXAMINATION: VITAL SIGNS: Today, he appears mildly ill. Blood pressure 140/74, heart rate 108, room air sat 93, temp 98.6. HEENT/NECK: He is not icteric. I detect no cervical supraclavicula r adenopathy. LUNGS: Clear. CARDIAC: Exam is unremarkable. ABDOMEN: Shows normal bowel sounds. H e definitely has some tenderness and a vague sensation of mass in the right upper quadrant. EXTREMIT IES: No edema. NEURO: Exam is nonfocal. Chemistry panel shows normal transaminases, alkaline phosphatase is elevated at 454. 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 He presents a week ago with gastrointestinal bleed, possibly related to tumor and nonsteroidals. Now he comes in with evidence of a new portal vein thrombosis and some liver abnormalities. This is a difficult sit uation. His tumor has been felt to be under reasonable control. Ideally we would like to anticoagul ate him. However, he is at significant risk of rebleeding related to that. If he were to be anticoa gulated, would certainly use intravenous heparin. After discussion with the hospitalist service, we elected to not anticoagulate him tonight, keeping in mind that we anticoagulate portal vein thrombosi s to try to prevent long-term complications such as portal hypertension and we will try to treat him with antibiotics given his fevers and the possibility of micro abscesses in the liver. Our service w ill continue to follow with you. /[id number]/MODL
[2018-05-27] MEDS ORDERED: PANTOPRAZOLE SODIUM 40 MG TAB PO PRN (17:55)
[2018-05-27] MEDS: ACETAMINOPHEN 325 MG TAB PO PRN (20:38)
[2018-05-27] MEDS: NS 1,000 ML IV SCH (23:37)
[2018-05-28] MEDS: ACETAMINOPHEN 325 MG TAB PO PRN ×2 (05:35→16:04)
[2018-05-28 05:39] LABS: PLATELET COUNT 538 10^3/uL (150-400)
--- NOTE | 2018-05-28 08:40 | PDMN ---
Medical Necessity Medical necessity: MCG: M160 sepsis and other febrile illness: pt presents with fever X 1 month, weakness, abd pain, PMHX stomach Ca, colon Ca, colon sgy, chest port. , currently on chemo., CT shows portal vein thrombosis and poss micro abscesses. Onc. consult pend.- anticoagulation held due to high risk of bleeding. - anticipate > 2 MN in complex high risk pt. IVF, IV abx,
[2018-05-28] MEDS: MULTIVITAMINS W-MINERALS 1 EACH TAB PO SCH (08:56)
[2018-05-28] MEDS: CETIRIZINE 10 MG TAB PO SCH (08:57)
--- NOTE | 2018-05-28 12:01 | ASMTCMCOM ---
CM Note CM Note Notes: Chart reviewed. Patient admitted via ED from oncology office for increased WBC and intermittent fevers. History significant for colon and stomach cancers. CM to follow for needs. Plan: TBD Date Signed: 05/28/2018 12:01 PM Electronically Signed By:Edna Trejo RN
--- NOTE | 2018-05-28 15:40 | HOSPPROG ---
Hospitalist Progress Note Assessment/Plan: Subjective Follow-up on fever, hepatic micro abscesses, and portal vein thrombosis. Patient does report that he was having right upper quadrant abdominal pain over the prior 1-2 weeks with recurrent subjective fevers and chills over the past 3- 4 weeks. Case was reviewed with Dr. Nur with Oncology today and we discussed involving Infectious Disease for further recommendations regarding antibiotic therapy. Overnight says he does state that he is feeling better. No subjective fevers this morning. We did review that is white blood cell count did trend downward from 22-16. He has had ongoing loose stools. C diff testing was performed and negative. Objective Vital signs as detailed below Exam General-awake alert conversant no acute distress Heart-regular rate and rhythm no murmurs Lungs-Clear to auscultation with normal respiratory effort Abdomen-soft , tender with deep palpation in the right upper quadrant, nondistended normal bowel sounds -no Chung catheter in place Extremities-no significant pitting edema or calf pain with palpation Skin-no concerning skin rashes noted Labs as detailed below Assessment and plan Fever-current thought is it is likely related to hepatic micro abscesses. Blood cultures currently pending. Clinically does seem to be responding to the current ceftriaxone and Flagyl as his white blood cell count is trending down and fevers have been less prominent. I have placed a consultation for Infectious Disease. Hepatic micro abscesses-as detailed above. Portal vein thrombosis-patient was recently admitted to the hospital with an upper GI bleed so anticoagulation was felt to be too high risk. History of GI bleed-admitted earlier this month. Monitor hemoglobin closely. Proton pump inhibitor. 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 He has been followed by Oncology and felt to have relatively stable size mass. History of colon cancer-this was diagnosed approximately 10 years ago. DVT prophylaxis-compression devices. No heparin or Lovenox in light of recent bleeding. Disposition-patient likely could be discharged home independently once medically clear. Objective: Vital Signs Temp Pulse Resp BP Pulse Ox 36.6 C 91 16 119/62 93 05/28/18 12:05 05/28/18 12:05 05/28/18 12:05 05/28/18 12:05 05/28/18 12:05 Laboratory Results 05/28/18 05:25 05/28/18 05:25 05/27/18 05/28/18 05/29/18 05:59 05:59 05:59 Intake Total 2202 150 Output Total 1000 Balance 1202 150 ICD10 Worksheet Patient Problems: Problems Problem Status Onset Fever Acute Gastric outlet obstruction Acute Rigors Acute
--- NOTE | 2018-05-28 15:42 | SOAPPROG ---
SOAP Progress Note Assessment/Plan: A/P: * Portal v. (intrahepatic) clot: anticoagulation is contraindicated due to high bleeding risk from duodenum. Main reason for anticoagulation is to treat acute pain and prevent long term complications. * ?Hepatic microabscesses: too small to sample. On ceftriaxone. Fever and leukocytosis have improved since admission/abx suggestive of infection (vs. inflammation from clot?). BCxs pending. Consult ID regarding length of empiric therapy. 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 05/28/18 15:43 Subjective: Feeling better since admission. Mild RUQ pain managed with Tylenol. O: VS reviewed, AF. Gen: NAD. Lungs: CTA. Abd: soft, NT. Laboratory Tests 05/19/18 05/26/18 05/27/18 22:55 16:25 10:47 WBC 20.81 H 22.79 H Hgb Plt Count Creatinine Alkaline Phosphatase 245 H 05/27/18 05/28/18 05/28/18 10:47 05:25 05:25 WBC 16.03 H Hgb 9.8 L Plt Count 538 H Creatinine 0.6 L Alkaline Phosphatase 454 H Objective: Vital Signs Temp Pulse Resp BP Pulse Ox 36.6 C 91 16 119/62 93 05/28/18 12:05 05/28/18 12:05 05/28/18 12:05 05/28/18 12:05 05/28/18 12:05 Laboratory Results 05/28/18 05:25 05/28/18 05:25 05/27/18 05/28/18 05/29/18 05:59 05:59 05:59 Intake Total 2202 150 Output Total 1000 Balance 1202 150 ICD10 Worksheet Patient Problems: Problems Problem Status Onset Fever Acute Gastric outlet obstruction Acute Rigors Acute
[2018-05-28] MEDS: NS 1,000 ML IV SCH (16:12)
[2018-05-29] MEDS: GUAIFENESIN/DM 10 ML UDCUP PO PRN (01:26)
[2018-05-29 04:30] LABS: PLATELET COUNT 571 10^3/uL (150-400)
[2018-05-29] MEDS: ACETAMINOPHEN 325 MG TAB PO PRN ×2 (08:34→21:44)
[2018-05-29] MEDS: CETIRIZINE 10 MG TAB PO SCH (08:35)
[2018-05-29] MEDS: MULTIVITAMINS W-MINERALS 1 EACH TAB PO SCH (10:27)
[2018-05-29] MEDS ORDERED: POTASSIUM CL 10 MEQ TAB PO SCH (12:15)
--- NOTE | 2018-05-29 12:45 | SOAPPROG ---
SOAP Progress Note Assessment/Plan: A/P: * Portal v. (intrahepatic) clot: anticoagulation is contraindicated due to high bleeding risk from duodenum. Main reason for anticoagulation is to treat acute pain and prevent mcc complications. * ?Hepatic microabscesses: too small to sample. On ceftriaxone. Fever and leukocytosis have improved since admission/abx suggestive of infection (vs. inflammation from clot?). BCxs pending. At risk due to biliary drainage and duodenal stent. Consult ID regarding length of empiric therapy. 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 05/29/18 12:43 Subjective: Remains improved from admission. No F/C/AP. O: AF Gen: NAD. Lungs: breathing comfortably. Abd: NT. Laboratory Tests 05/29/18 05/29/18 05/29/18 04:20 04:20 04:20 WBC 17.22 H Hgb 9.9 L Plt Count 571 H Creatinine 0.6 L Total Bilirubin 0.6 AST 34 ALT 49 Alkaline Phosphatase 551 H Objective: Vital Signs Temp Pulse Resp BP Pulse Ox 36.3 C 86 16 119/67 95 05/29/18 11:06 05/29/18 11:06 05/29/18 11:06 05/29/18 11:06 05/29/18 11:06 Laboratory Results 05/29/18 04:20 05/29/18 04:20 05/28/18 05/29/18 05/30/18 05:59 05:59 05:59 Intake Total 2202 3196 Output Total 1000 Balance 1202 3196 ICD10 Worksheet Patient Problems: Problems Problem Status Onset Fever Acute Gastric outlet obstruction Acute Rigors Acute
[2018-05-29] MEDS ORDERED: POTASSIUM CL 20 MEQ TAB PO SCH (13:00)
--- NOTE | 2018-05-29 14:59 | HOSPPROG ---
Hospitalist Progress Note Assessment/Plan: Subjective Follow-up on fever, hepatic micro abscesses, and portal vein thrombosis. No acute events overnight. Patient denies any subjective fevers today and is not complaining of any right-sided abdominal pain. Case was reviewed with Infectious Disease and Oncology. Patient's nurse did report blood-tinged stool today which I was able to observe personally. Objective Vital signs as detailed below Exam General-awake alert conversant no acute distress Heart-regular rate and rhythm no murmurs Lungs-Clear to auscultation with normal respiratory effort Abdomen-soft , tender with deep palpation in the right upper quadrant, nondistended normal bowel sounds -no Chung catheter in place Extremities-no significant pitting edema or calf pain with palpation Skin-no concerning skin rashes noted Labs as detailed below Assessment and plan Fever-current thought is it is likely related to hepatic micro abscesses. Blood cultures currently pending. Clinically does seem to be responding to the current ceftriaxone and Flagyl as his white blood cell count is trending down and fevers have been less prominent. Appreciate the input from Dr. Nicole. Hepatic micro abscesses-as detailed above. Portal vein thrombosis-patient was recently admitted to the hospital with an upper GI bleed so anticoagulation was felt to be too high risk. History of GI bleed-admitted earlier this month. Continue Proton pump inhibitor. Light blood-tinged stool noted today however hemoglobin has been stable in no hemodynamic instability. Continue to monitor and trend hemoglobin. 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 He has been followed by Oncology and felt to have relatively stable size mass. History of colon cancer-this was diagnosed approximately 10 years ago. DVT prophylaxis-compression devices. No heparin or Lovenox in light of recent bleeding. Disposition-patient likely could be discharged home independently once medically clear. Objective: Vital Signs Temp Pulse Resp BP Pulse Ox 36.3 C 86 16 119/67 93 05/29/18 11:06 05/29/18 11:06 05/29/18 12:55 05/29/18 11:06 05/29/18 12:55 Laboratory Results 05/29/18 04:20 05/29/18 04:20 05/28/18 05/29/18 05/30/18 05:59 05:59 05:59 Intake Total 2202 3196 Output Total 1000 Balance 1202 3196 ICD10 Worksheet Patient Problems: Problems Problem Status Onset Fever Acute Gastric outlet obstruction Acute Rigors Acute
[2018-05-29] MEDS: NS 1,000 ML IV SCH (15:46)
[2018-05-30] MEDS: GUAIFENESIN/DM 10 ML UDCUP PO PRN ×2 (00:33→21:43)
--- NOTE | 2018-05-30 03:43 | GCON ---
INFECTIOUS DISEASE CONSULTATION DATE OF CONSULTATION: 05/29/2018 REFERRING PHYSICIAN: Nghia Rodriguez MD REASON FOR CONSULTATION: Possible multifocal hepatic abscesses. HISTORY OF PRESENT ILLNESS: The patient is a 67-year-old male with a past medical history of adenoca rcinoma with resultant obstruction, who I am asked to see in consultation for possible multifocal hep atic abscesses. The patient has been receiving chemotherapy with pembrolizumab and underwent duodena l stenting for perforation previously. More recently, he was admitted with an upper GI bleed related to some ulcerated mucosal tumor cells around the duodenal stent. The patient notes over the last 2 weeks that he has been having fevers on a daily basis. This has reached as high as 102-103 with asso ciated rigors and night sweats. Initial evaluation showed that his white count had increased from 90 00 earlier this month to 20.8. CT scan of the abdomen and pelvis was performed, which showed numerou s tiny clustered hypodensities within the liver parenchyma, most predominant in the right hepatic lob e suggestive of possible microabscesses. There was also noted to be portal vein thrombosis. Stents in the duodenum and common bile duct were both noted. Blood cultures were obtained and have shown no growth to date. The patient was empirically begun on ceftriaxone and metronidazole. He has not exp erienced nausea, vomiting or diarrhea. He denies any abdominal pain. He has not had dysuria, urgenc y or frequency. No cough or shortness of breath. Given the consideration of potential multifocal he patic abscesses, infectious disease consultation is now requested. PAST MEDICAL HISTORY: Duodenal cancer as above, colon cancer in 2000. PAST SURGICAL HISTORY: Duodenal stenting, colon cancer resection, port placement. CURRENT MEDICATIONS: Ceftriaxone 1 g IV daily, metronidazole 500 mg IV q.8 hours, Zyrtec 10 mg p.o. daily, Protonix 40 mg p.o. b.i.d. as needed, potassium chloride 40 mEq p.o. daily. ALLERGIES: No known drug allergies. SOCIAL HISTORY: Patient quit smoking many years ago. No alcohol or drug use. No recent travel. Pe ts: Cats at home with no bites or scratches. FAMILY HISTORY: Colon cancer. REVIEW OF SYSTEMS: Outside that noted in the HPI, the remainder of 10-system review is unremarkable. PHYSICAL EXAMINATION: VITAL SIGNS: Temperature maximum 39.4, temperature current 36.3. Heart rate 86, respiratory rate 16, blood pressure 119/67, oxygen saturation 93% on room air. GENERAL: Patient is chronically ill appearing, in no acute distress. He appears nontoxic. HEENT: There is no scler al icterus, conjunctival injection, or conjunctival petechiae. The oropharynx shows moist mucous mem branes with dentition in fair repair. There is no nasal discharge or sinus tenderness. NECK: Suppl e without palpable lymphadenopathy or thyromegaly. CHEST: Clear to auscultation bilaterally without adventitious sounds. Respiratory effort is normal. CARDIOVASCULAR: Regular rate and rhythm withou t murmurs, gallops, or rubs. ABDOMEN: Soft, nontender, mildly distended. Bowel sounds are present. No palpable organomegaly. MUSCULOSKELETAL: There is trace lower extremity edema bilaterally. No cyanosis or clubbing. SKIN: No rashes present. No stigmata of endocarditis. Skin is warm and dry to touch. NEUROLOGIC: The patient is alert and interacts appropriately with the examiner. Cranial nerves 2-12 are grossly intact. Muscle tone and bulk are normal. LYMPHATICS: No cervical or suprac lavicular nodes. LABORATORY DATA: White blood cell count 17.2, hematocrit 29.4, platelets 571, neutrophils 97%. Seru m creatinine 0.6, bilirubin 0.6, AST 34, ALT 49, alkaline phosphatase 551, albumin 2.3. CT scan the abdomen pelvis as outlined above which was reviewed and interpreted by me with Radiology today. IMPRESSION: Fever and leukocytosis with possible multifocal hepatic abscesses: Clinical presentatio n with fever, leukocytosis and CT scan showing hypodensities suggestive of multifocal microabscess fo rmation as potential etiology. The patient's most recent white blood cell count earlier this month w as normal. Prior CT scan in September did not show any hepatic abnormalities. Most likely, this will be a ssociated with cholangitis based on presence of common bile duct stent. Additionally, the alkaline p hosphatase is elevated, which is also relatively new. Other primary consideration would be for hepat ic metastases which also could present with fever, leukocytosis and thrombocytosis. The lesions are too small to be amenable for percutaneous biopsy. We will continue therapy with ceftriaxone and metr onidazole with observation to see if leukocytosis and fever resolve as well as interval imaging over time to determine if hypodensities resolve. If this is not the case, then would be more supportive o f potential malignant etiology. RECOMMENDATIONS: 1. Agree with continuing ceftriaxone, which will be increased to 2 g IV daily. 2. Agree with metronidazole 500 mg IV q.8 hours. 3. Follow up blood cultures as available. 4. Follow clinical response to antibiotic therapy including monitoring of white blood cell count and fever curve. 5. Plan interval imaging with additional time to determine if hypodense areas in the liver resolve w ith antibiotic therapy. Thank you for this consultation. We will continue to follow the patient with you. /[id number]/MODL
[2018-05-30 04:11] LABS: PLATELET COUNT 514 10^3/uL (150-400)
[2018-05-30] MEDS ORDERED: POTASSIUM CL 20 MEQ TAB PO SCH (09:00)
[2018-05-30] MEDS: MULTIVITAMINS W-MINERALS 1 EACH TAB PO SCH (09:29)
[2018-05-30] MEDS: CETIRIZINE 10 MG TAB PO SCH (09:29)
[2018-05-30] MEDS: POTASSIUM CL 20 MEQ TAB PO SCH ×2 (09:29→19:57)
--- NOTE | 2018-05-30 09:50 | PCMIDPN ---
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 White blood cell count is decreasing to 15,000 with empiric ceftriaxone and Flagyl. Cultures are not revealing thus far. Will continue with the empiric regimen and follow his clinical appearance as well as his fever curve and white cell count going forward. Plan: 1. Continue both IV ceftriaxone and Flagyl at present dose. 2. Follow up on culture data. 3. Follow his clinical course and temp curve. 05/30/18 09:48 Subjective: Patient is resting in his hospital bed. He states emphatically that he feels much better than he did 2 days ago. No fevers. No abdominal pain. No rash. Objective: Ceftriaxone # 3 Flagyl # 3 Vital Signs Temp Pulse Resp BP Pulse Ox 37.1 C 89 16 145/76 H 93 05/30/18 03:07 05/30/18 09:45 05/30/18 09:45 05/30/18 09:45 05/30/18 09:45 Laboratory Results 05/30/18 03:35 05/30/18 03:35 05/29/18 05/30/18 05/31/18 05:59 05:59 05:59 Intake Total 3196 3378 Output Total 525 Balance 3194 8011 - Physical Exam General Appearance: WD/WN, alert, no apparent distress, non-toxic Respiratory: lungs clear, normal breath sounds, No respiratory distress Cardiac/Chest: regular rate, rhythm, systolic murmur, No tachycardia, No irregularly irregular Abdomen: non-tender, soft, No mass Skin: normal color, warm/dry, No rash Neuro/Psych: alert, normal mood/affect, oriented x 3 ICD10 Worksheet Patient Problems: Problems Problem Status Onset Fever Acute Gastric outlet obstruction Acute Rigors Acute
--- NOTE | 2018-05-30 11:36 | SOAPPROG ---
SOAP Progress Note Assessment/Plan: Assessment: Jr is a 67-year-old male with history of duodenal cancer admitted for hepatic abscess. 1. Hepatic abscess: These are too small to drain. Infectious Disease is following him. I agree with looking towards oral antibiotic regimens. His blood cultures are negative. 2. Portal vein thrombosis: Holding anticoagulation due to high risk for bleeding from his duodenum. 3. Duodenal cancer: He is currently receiving keytruda. 05/30/18 11:34 Subjective: No acute events overnight. Overall feeling well. No chest pain shortness of breath abdominal pain. Objective: Vital Signs Temp Pulse Resp BP Pulse Ox 37.1 C 89 16 145/76 H 93 05/30/18 03:07 05/30/18 09:45 05/30/18 09:45 05/30/18 09:45 05/30/18 09:45 Laboratory Results 05/30/18 03:35 05/30/18 03:35 05/29/18 05/30/18 05/31/18 05:59 05:59 05:59 Intake Total 3196 3372 Output Total 525 Balance 3197 6418 General: Pleasant-appearing male in no acute distress Psych: Appropriate affect Neuro: Moving all extremities+ Abdomen: Soft nontender nondistended bowel sounds are present Cardiovascular: Regular rate and rhythm ICD10 Worksheet Patient Problems: Problems Problem Status Onset Fever Acute Gastric outlet obstruction Acute Rigors Acute
--- NOTE | 2018-05-30 14:28 | ASMTCMCOM ---
CM Note CM Note Notes: Pt discussed in rounds with RN and MD, pt continues to progress medically and fevers/ WBC improving. Pt remains on antibiotics, may be discharged on PO. CM will continue to follow. Plan: likely Independent Date Signed: 05/30/2018 11:58 AM Electronically Signed By:RADHA Castañeda
--- NOTE | 2018-05-30 15:10 | HOSPPROG ---
Hospitalist Progress Note Assessment/Plan: Subjective Follow-up on fever, hepatic micro abscesses, and portal vein thrombosis. No acute events overnight. Patient states he is feeling much better today. No additional bloody stools reported. Objective Vital signs as detailed below Exam General-awake alert conversant no acute distress Heart-regular rate and rhythm no murmurs Lungs-Clear to auscultation with normal respiratory effort Abdomen-soft , tender with deep palpation in the right upper quadrant, nondistended normal bowel sounds -no Chung catheter in place Extremities-no significant pitting edema or calf pain with palpation Skin-no concerning skin rashes noted Labs as detailed below Assessment and plan Fever-current thought is it is likely related to hepatic micro abscesses. Blood cultures currently pending. Clinically does seem to be responding to the current ceftriaxone and Flagyl as his white blood cell count is trending down and fevers have been less prominent. Appreciate the input from ID. If continued improvement I would anticipate he could probably be discharged home with oral antibiotics in the coming 1-2 days. Hepatic micro abscesses-as detailed above. Portal vein thrombosis-patient was recently admitted to the hospital with an upper GI bleed so anticoagulation was felt to be too high risk. History of GI bleed-admitted earlier this month. Continue Proton pump inhibitor. Light blood-tinged stool noted during this hospitalization however hemoglobin has been remained relatively stable in no hemodynamic instability. 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 He has been followed by Oncology and felt to have relatively stable size mass. History of colon cancer-this was diagnosed approximately 10 years ago. DVT prophylaxis-compression devices. No heparin or Lovenox in light of recent bleeding. Disposition-patient likely could be discharged home independently once medically clear. Objective: Vital Signs Temp Pulse Resp BP Pulse Ox 36.5 C 89 16 134/72 H 94 05/30/18 12:14 05/30/18 12:14 05/30/18 12:14 05/30/18 12:14 05/30/18 12:14 Laboratory Results 05/30/18 03:35 05/30/18 03:35 05/29/18 05/30/18 05/31/18 05:59 05:59 05:59 Intake Total 3199 9997 Output Total 525 200 Balance 3196 2852 -200 ICD10 Worksheet Patient Problems: Problems Problem Status Onset Fever Acute Gastric outlet obstruction Acute Rigors Acute
[2018-05-31 05:52] LABS: PLATELET COUNT 542 10^3/uL (150-400)
[2018-05-31] MEDS: MULTIVITAMINS W-MINERALS 1 EACH TAB PO SCH (08:56)
[2018-05-31] MEDS: POTASSIUM CL 20 MEQ TAB PO SCH ×2 (08:56→19:52)
[2018-05-31] MEDS: CETIRIZINE 10 MG TAB PO SCH (08:56)
--- NOTE | 2018-05-31 11:16 | PCMIDPN ---
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 Reviewed CT scan in and noted debris in the common bile duct stent. Current source of possible liver abscesses could be related to biliary obstruction although total bili within normal limits, alk-phos chronically elevated --continue ceftriaxone, flagyl --discussed w GI if needs more biliary drainage will have to be percutaneously via IR. At this point do not think there is enough evidence for this, recheck LFTs as planned by Dr. Jacobs --could consider discharge on p.o. Therapy Augmentin verses levofloxacin plus Flagyl with interval CT scans, tentatively plan dc tomorrow meds ceftriaxone 2gm IV daily #4 flagyl 500mg IV q8 Micro 05/27 blood cultures (2) no growth today Subjective: no abdominal pain appetite okay weight stable Objective: Vital Signs Temp Pulse Resp BP Pulse Ox 36.6 C 90 16 134/77 H 91 L 05/31/18 08:45 05/31/18 08:45 05/31/18 08:45 05/31/18 08:45 05/31/18 08:45 Laboratory Results 05/31/18 05:45 05/31/18 05:45 05/30/18 05/31/18 06/01/18 05:59 05:59 05:59 Intake Total 3377 2624 Output Total 525 201 Balance 2852 2423 - Physical Exam General Appearance: alert, thin, non-toxic EENT: pale conjunctiva, No scleral icterus, No thrush Respiratory: lungs clear, No accessory muscle use Neck: supple Cardiac/Chest: regular rate, rhythm Extremities: No pedal edema Abdomen: normal bowel sounds, non-tender, soft Skin: warm/dry, No jaundice, No rash Neuro/Psych: alert, normal mood/affect, oriented x 3 - Time Spent With Patient Time Spent with Patient: greater than 35 minutes (care coordinated with GI and hospitalist) Time Spent with Patient: Greater than 35 minutes spent on this patients care, greater than 50% of time spent counseling, educating, and coordinating care regarding the above mentioned plan. ICD10 Worksheet Patient Problems: Problems Problem Status Onset Fever Acute Gastric outlet obstruction Acute Rigors Acute
--- NOTE | 2018-05-31 11:48 | HOSPPROG ---
Hospitalist Progress Note Assessment/Plan: Assessment and plan Fever - suspect 2/2 hepatic abscess. BCxs ngtd. -cont ceftriaxone and Flagyl, can likely dc on Augmentin vs Levaquin/Flagyl tomorrow Hepatic micro abscesses - atbx as above, ID following, discussed with Dr. Bonilla. CBD and duodenal stent noted, query biliary process. -GI consult today, no plans for intervention Portal vein thrombosis - deferring anticoagulation due to high bleeding risk, see below H/O GI bleed - admitted earlier this month. Light blood-tinged stool noted during this hospitalization however hgb stable in no hemodynamic instability. -cont PPI Duodenal carcinoma - with prior obstruction, now with duodenal and CBD stent, followed by Oncology and felt to have relatively stable size mass. -on keytruda History of colon cancer - diagnosed approximately 10 years ago. DVT prophylaxis-compression devices. No heparin or Lovenox in light of recent bleeding. Disposition - cont inpt, likely dc in am Subjective: Pt feels ok, tolerating po. Denies pain. No fevers. No N/V. Objective: Vital Signs Temp Pulse Resp BP Pulse Ox 36.5 C 88 16 136/88 H 92 05/31/18 11:31 05/31/18 11:31 05/31/18 11:31 05/31/18 11:31 05/31/18 11:31 Laboratory Results 05/31/18 05:45 05/31/18 05:45 05/30/18 05/31/18 06/01/18 05:59 05:59 05:59 Intake Total 3377 2624 Output Total 525 201 Balance 2852 2423 - Physical Exam Constitutional: no apparent distress Eyes: PERRL Ears, Nose, Mouth, Throat: moist mucous membranes Cardiovascular: regular rate and rhythym Respiratory: no respiratory distress, clear to auscultation Gastrointestinal: normoactive bowel sounds, soft, non-tender abdomen Skin: warm Musculoskeletal: full muscle strength Neurologic: AAOx3 Psychiatric: interacting appropriately ICD10 Worksheet Patient Problems: Problems Problem Status Onset Fever Acute Gastric outlet obstruction Acute Rigors Acute
--- NOTE | 2018-05-31 14:42 | SOAPPROG ---
SOAP Progress Note Assessment/Plan: Assessment: Jr is a 67-year-old male with history of duodenal cancer admitted for hepatic abscess. 1. Hepatic abscess: ID following. Tapering to orals might be an option tomorrow. WBC improving. Clinically is static. 2. Portal vein thrombosis: Holding anticoagulation due to high risk for bleeding from his duodenum. 3. Duodenal cancer: He is currently receiving keytruda. 05/31/18 14:42 Subjective: No acute events overnight. No fevers, abdominal pain, cp, SOB. Objective: Vital Signs Temp Pulse Resp BP Pulse Ox 36.5 C 88 16 136/88 H 92 05/31/18 11:31 05/31/18 11:31 05/31/18 11:31 05/31/18 11:31 05/31/18 11:31 Laboratory Results 05/31/18 05:45 05/31/18 05:45 05/30/18 05/31/18 06/01/18 05:59 05:59 05:59 Intake Total 3377 2624 Output Total 525 201 Balance 2852 2423 Gen: Comfortable, NAD HEENT: Op clear, EOMI Pulm: CTAB CV: RRR Abd: Soft, nt, nd bs+ Ext: No c/c/e Psych: Appropriate affect ICD10 Worksheet Patient Problems: Problems Problem Status Onset Fever Acute Gastric outlet obstruction Acute Rigors Acute
[2018-05-31] MEDS: GUAIFENESIN/DM 10 ML UDCUP PO PRN (22:03)
[2018-06-01 04:30] LABS: PLATELET COUNT 597 10^3/uL (150-400)
[2018-06-01] MEDS: POTASSIUM CL 20 MEQ TAB PO SCH (09:12)
[2018-06-01] MEDS: MULTIVITAMINS W-MINERALS 1 EACH TAB PO SCH (09:12)
[2018-06-01] MEDS: CETIRIZINE 10 MG TAB PO SCH (09:12)
[2018-06-01 09:24] VITALS: BP 140/80
--- NOTE | 2018-06-01 09:45 | ASDISCHSUM ---
Discharge Information Plan Status:Home with No Needs Medically Cleared to Leave: Discharge Date: CM D/C Disposition:Home, Routine, Self-Care ADT D/C Disposition:Home, Routine, Self-Care Projected Discharge Date: Transportation at D/C:Family Discharge Delay Reason: Follow-Up Date: Discharge Slot: Final Diagnosis: Placement Information Patient Contact Information Contact Name:HANNA Relationship:Life Partner Address:[address] [place] [address] [address] City:[place] Alternate Phone: State/Zip Code:[place] [address] Email: Financial Information Financial Class:Medicare Advantage Plans Primary Plan Desc:[facility] [employer] PLANS Primary Plan Number:[id number] Secondary Plan Desc: Secondary Plan Number: Assessment Information [facility] CM Progress Note CM Note CM Note Notes: Chart reviewed. Patient admitted via ED from oncology office for increased WBC and intermittent fevers. History significant for colon and stomach cancers. CM to follow for needs. Plan: TBD Date Signed: 05/28/2018 12:01 PM Electronically Signed By:Edna Trejo RN LACE LACE Length of stay for Answers: 4-6 days current admission Acuity / Level of Answers: Yes Care: Did the patient have an inpatient admission? Comorbidities - select Answers: Any tumor (including all that apply lymphoma or leukemia) # of Emergency department Answers: 3-4 visits in the last 6 months Score: 12 Date Signed: 06/01/2018 09:44 AM Electronically Signed By:RADHA Castañeda [facility] CM Progress Note CM Note CM Note Notes: Pt discussed in rounds with RN and MD, pt continues to progress medically and fevers/ WBC improving. Pt remains on antibiotics, may be discharged on PO. CM will continue to follow. Plan: likely Independent Date Signed: 05/30/2018 11:58 AM Electronically Signed By:RADHA Castañeda Case Management Discharge Plan Note Case Management Discharge Discharge Order Complete? Answers: Yes Patient to Obtain Answers: via Family Medications Transportation Arranged Answers: Family/Friends Discharge Comments Notes: Pt is being discharged independently and will continue medical follow-up as indicated. Pt reports no concerns, no CM needs identified at this time. Pt to arrange transport. Date Signed: 06/01/2018 09:44 AM Electronically Signed By:RADHA Castañeda Intervention Information
--- NOTE | 2018-06-01 09:54 | PCMIDPN ---
Assessment/Plan: Assessment/Plan: * Fever/leukocytosis: All improved with antibiotic therapy targeting possible hepatic multifocal microabscesses. Suspect this is most likely etiology. Given clinical improvement, will transition to oral levofloxacin and metronidazole. Discussed with patient that potential for quinolone resistant enteric organisms does exist. Advised to notify me for recurrent fever or chills. Will plan repeat CT scan after approximately 2 weeks of therapy to reassess hepatic hypodensities. Will have him follow-up with me in the office next week. Side effects of fluoroquinolone use including tendinopathy, allergic reactions, skin rash, C difficile colitis, potential drug interactions , and need to avoid concomitant intake of polyvalent cations discussed with patient. Side effects of metronidazole including potential for nausea, vomiting , metallic taste in mouth, peripheral neuropathy, and need to avoid alcohol discussed with patient as well. Care coordinated with Dr. Jacobs today. 06/01/18 09:52 Subjective: Patient feels significantly improved. No further fever or chills. No abdominal pain. Objective: Vital Signs Temp Pulse Resp BP Pulse Ox 36.2 C 87 16 140/80 H 92 06/01/18 09:24 06/01/18 09:24 06/01/18 09:24 06/01/18 09:24 06/01/18 09:24 Laboratory Results 06/01/18 03:58 06/01/18 03:58 05/31/18 06/01/18 06/02/18 05:59 05:59 05:59 Intake Total 2624 2500 Output Total 201 Balance 2423 2500 Ceftriaxone # 5 Metronidazole # 5 Blood cultures x2 no growth Laboratory Tests 06/01/18 03:58 Total Bilirubin 0.4 AST 39 ALT 40 Alkaline Phosphatase 616 H - Physical Exam General Appearance: alert, no apparent distress, non-toxic EENT: No scleral icterus, No thrush, No conjunctival petechiae Respiratory: lungs clear, No respiratory distress Cardiac/Chest: regular rate, rhythm Abdomen: non-tender, No distended ICD10 Worksheet Patient Problems: Problems Problem Status Onset Fever Acute Gastric outlet obstruction Acute Rigors Acute
--- NOTE | 2018-06-02 07:03 | GDS ---
DISCHARGE DIAGNOSES: 1. Hepatic micro abscesses. 2. 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 3. Portal vein thrombosis, anticoagulation was deferred due to high bleeding risk. 4. History of gastrointestinal bleed. 5. History of colon cancer. CONSULTANTS: 1. Dr. Víctor Dominguez, Oncology. 2. Dr. Mason Nicole, Infectious Disease. HISTORY OF DETAILS: Please see history and physical dated May 27, 2018. In brief, Mr. Villaseñor is a 67-year-old male with a remote history of colon cancer and more recently diagnosed duodenal cancer with common bile duct and duodenal stents in place, presented to the hospital with fever. He was adm itted for further evaluation. HOSPITAL COURSE: The patient is admitted to the Cancer Care Unit. His imaging was consistent with i ntrahepatic portal vein thrombosis, as well as possible microabscesses. It was thought his bleeding risk from his duodenal cancer outweighed the risk of his portal vein thrombosis. Anticoagulation was deferred given his recent GI bleed. Oncology consult was obtained. He has been treated with immuno therapy and thought his recent GI bleed was related to his tumor, as well as possible NSAID use. The re has been no evidence of significant progression of his tumor. With respect to his fever and hepat ic abscesses, he was treated with ceftriaxone and Flagyl for a total of 6 days. His leukocytosis is improved from a white count of 17,000 down to 10,000. He remained afebrile for a 72 hours prior to d ischarge. The case was reviewed with Gastroenterology, who did not feel his stent warranted any inte rventions. In addition, he had normal bilirubin and normal transaminases. His alkaline phosphatase was slightly elevated in the 500-600 range. His symptoms improved dramatically. He was able to tole rate a full diet. He felt well and wished to discharge home. He will be discharged on 10 more days of Levaquin and Flagyl with plans for close followup with Infectious Disease in 1 week, at which time he will have repeat CT scan performed for ongoing surveillance of his biliary tree and tumor status. The decision can be made at that time if he warrants ongoing antibiotic therapy. DISPOSITION: Patient is discharged to home in stable condition. FOLLOWUP: 1. Dr. Mason Nicole, Infectious Disease, June 08 at 7:[address] Vcítor Dominguez, Oncology. 3. Dr. Roemo Arambula, Gastroenterology. 4. Maday Handley, Primary Care. DISCHARGE MEDICATIONS: Please see [facility] completed on outpatient medication list. New medications on discharge include Levaquin 750 mg p.o. daily #10, no refills; Flagyl 500 mg p.o. 3 times daily, # 30, no refills. He will continue all other outpatient medications as previously prescribed. As repo rted above anticoagulation was deferred due to significant bleeding risk. /[id number]/MODL
== END 2018-06-01 12:22 | disposition home or self-care (01) | DRG 441 ==
LOC: F1N 16:57
PROVIDERS: ADMIT Family Medicine; ATTEND Family Medicine
DX: K75.0 Abscess of liver (principal); I81 Portal vein thrombosis; C17.0 Malignant neoplasm of duodenum; E86.9 Volume depletion, unspecified; Z85.038 Personal history of other malignant neoplasm of large intestine
CPT/HCPCS: J0696; J1642; Q9967

== ENCOUNTER → 2018-06-14 | Outpatient (CLI) | payer OTHER ==
[~2018-06-14] MED LIST changes: +IOHEXOL 350mgI/ML (OMNIPAQUE) 150 ML BTL IV ONE; -IOPAMIDOL (ISOVUE-300) 100 ML BTL ONE
== END ==
LOC: FIMAGING 10:33
PROVIDERS: ATTEND Internal Medicine Infectious Disease
DX: I82.890 Acute embolism and thrombosis of other specified veins (principal); K80.20 Calculus of gallbladder without cholecystitis without obstruction; Z96.89 Presence of other specified functional implants
CPT/HCPCS: 74160; Q9967

== ENCOUNTER 2018-06-30 08:28 | Inpatient (IN) | payer OTHER ==
--- NOTE | 2018-06-30 09:29 | PDGENHP ---
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 He had a had duodenal stent placed in September of 2017 secondary to an obstruction and he says that since that time he has not been normal with chronic GI cramping and fullness with nausea and vomiting if he eats too fast. He was just seen in May of 2018 for abdominal pain where an upper endoscopy was performed that showed a patent stent but likely tumor cells invading into the body of the stent. He was seen this morning by his oncologist who checked labs and referred him to the hospital for direct admission for further evaluation of possible obstruction secondary to acute worsening of his abdominal pain with nausea and vomiting. He says if he eats anything aside small sips or small bites of food he has acute nausea and vomiting. His pain is located in his right upper quadrant which she says the location of his stent. The pain is nonradiating, it is sharp rated 7/10 in severity. We he denied any bloody, black stools he denied any bloody or coffee-ground emesis. He denied any fevers, chills, cough, chest pain or other symptoms. History Information - Allergies/Home Medication List Allergies/Adverse Reactions: No Known Allergies Allergy (Verified 06/30/18 10:59) Home Medications: Multivitamins W-Minerals [Thera M Plus Tablet (*)] 1 each PO DAILY 10/04/17 [ Last Taken Unknown] Cetirizine [ZyrTEC 10 mg (*)] 10 mg PO DAILY 05/19/18 [Last Taken 06/30/18] Acetaminophen [Tylenol 325mg (*)] 650 mg PO Q6 PRN 05/27/18 [Last Taken Unknown] Pantoprazole Sodium [Protonix 40mg (*)] 40 mg PO BID PRN 05/27/18 [Last Taken ] I have personally reviewed and updated: family history, medical history, social history, surgical history Past Medical History: duodenal ampulla cancer - Past Medical History cancer (Colon, duodenal) Additional medical history: colon cancer - Surgical History Reports: colectomy Additional surgical history: Duodenal, CBD stent - Family History Positive for: cancer (Colon in multiple family members) - Social History Smoking Status: Former smoker Alcohol Use: Occasionally Review of Systems Review of Systems: ROS: 10pt was reviewed & negative except for what was stated in HPI & below Physical Exam Physical Exam: Temp Pulse Resp BP Pulse Ox 36.6 C 114 H 14 119/78 93 06/30/18 09:12 06/30/18 09:12 06/30/18 09:12 06/30/18 09:12 06/30/18 09:12 Constitutional: no apparent distress, appears nourished, not in pain Eyes: PERRL, anicteric sclera, EOMI Ears, Nose, Mouth, Throat: moist mucous membranes, hearing normal, ears appear normal, no oral mucosal ulcers Cardiovascular: regular rate and rhythym, no murmur, rub, or gallop, No edema Respiratory: no respiratory distress, no rales or rhonchi, clear to auscultation Gastrointestinal: normoactive bowel sounds, soft, non-tender abdomen, no palpable masses Genitourinary: no bladder fullness, no bladder tenderness Skin: warm, normal color, no rashes or abrasions, no fluctuance, no induration, No mottled Musculoskeletal: full muscle strength, no muscle tenderness, normal joint ROM, no joint effusions Psychiatric: interacting appropriately, not anxious, not encephalopathic, thought process linear Lymph, Heme, Immunologic: no cervical LAD, no supraclavicular LAD Lab Data & Imaging Review 06/30/18 10:00 06/30/18 10:00 Assessment & Plan Assessment: Abdominal pain- concern for obstruction of his duodenal stent. CT abdomen and pelvis today shows stricture ring or narrowing of the area around in a the stent with dilation proximal to it. I discussed the case with the radiologist who says that contrast is making it through the stent most of the contrast distal in the stomach. The CT almost looked as if the tumor was invading into body of the stent through the fenestrations. I discussed the case with the on- call oncologist and we decided to consult Gastroenterology for possible upper endoscopy -clear liquids and then NPO at midnight -intravenous saline -IV PPI -pain control -antiemetics -GI consult Hyponatremia- suspect hypovolemic hyponatremia in the setting of poor oral intake. Will give intravenous saline and recheck sodium in the morning Hyperbilirubinemia- CT scan today showed patent common bile duct stent. Will monitor LFTs Duodenal cancer- follows with Dr. Dominguez. Already had chemo with recurrence, appears options are fairly limited at this point. -oncology consulted -GI consulted for possible EGD in the morning ppx- SCDs, Lovenox Fluids- intravenous saline Electrolytes-hyponatremia Nutrition-clears then NPO been Cor-full code Dispo-inpatient for abdominal pain nausea vomiting
[2018-06-30] MEDS ORDERED: ACETAMINOPHEN 325 MG TAB PO PRN (09:39)
[2018-06-30] MEDS ORDERED: ONDANSETRON DISINTEGRATING 4 MG TAB PO PRN (09:39)
[2018-06-30] MEDS: NS 1,000 ML IV SCH ×2 (10:06→20:02)
[2018-06-30 10:18] LABS: PLATELET COUNT 387 10^3/uL (150-400)
[2018-06-30] MEDS ORDERED: IOHEXOL 300 mgI/ML (OMNIPAQUE) 150 ML BTL IV ONE ×2 (11:18→12:26)
--- NOTE | 2018-06-30 19:08 | GCON ---
[f rep st] CONSULTATION DATE OF CONSULTATION: 06/30/2018 CONSULTATION REQUESTED BY: Kurt Martin MD. REASON FOR CONSULTATION: Duodenal mass with high-grade partial obstruction, status post stent placement. HISTORY: The patient is a 67-year-old white male. He had a 9 cm mass which was decreased with Keytruda to approximately a 6 cm mass, and now it is down to approximately a 2 cm mass. He previously has had a right colon resection for colon carcinoma. This appears to be a primary duodenal carcinoma, but the pathology is unclear. He has done well until recently. Over the last 10 days, he has had difficulty eating. He is able to keep some liquids down. He states he has had approximately a 10-pound weight loss. On today's examination, he is awake, alert, quite pleasant and not in pain and sipping on water. His white count is 9.3. Hematocrit is 36. His albumin is 3.6. His alkaline phosphatase is 763. His distal duodenal stent appears to be partially obstructed by either food and/or tumor. I have been consulted to help formulate a palliative plan for him. In discussions with Dr. Martin and Dr. Young (GI), we have talked about trying to use an EGD to see if we can decrease the obstructive aspect. Note is made that his total lymphocyte count is 400, which is indicative of severe nutritional deficiency, and his prealbumin is pending. If we can open up the stent obstruction, then consideration can be given to enteral nutrition to optimize his nutritional status, and then consideration for a gastrojejunal bypass. If we cannot open up the duodenum and if his pre-albumin is reasonable , then we will proceed to that directly. If not, TPN may be considered and surgical intervention delayed. We will continue to follow closely with you. /[id number]/MODL MTDD
--- NOTE | 2018-06-30 19:59 | GCON ---
[f rep st] CONSULTATION DATE OF CONSULTATION: 06/30/2018 REQUESTING PHYSICIAN: Kurt Martin MD Dear Dr. Martin: Thank you very kindly for asking me to evaluate this patient in consultation for abdominal pain, naus ea, vomiting, and CT findings of an obstructed duodenal stent that was placed in September 2017, by Dr. Yoav Arambula, for malignant duodenal obstruction. Jr is an unfortunate gentleman with previous colorect al cancer who underwent colectomy and developed a duodenal obstruction in September of last year that was f elt to be a primary ampullary or duodenal malignancy. 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 His father has also had colon cancer at an early age. He h as been receiving what I believe is immunotherapy through Dr. Dominguez in [facility] a nd has had what he describes as a clinical response. He was doing well up until earlier this week wh en he developed nausea, abdominal distention, and worsening abdominal discomfort. He has been unable to really eat or drink much other than liquids. A CT scan of the abdomen and pelvis performed today at the ER, after direction of his oncology team to come to the emergency room for admission because of his symptoms, revealed a partially obstructed duodenal stent with both malignant ingrowth and debr is in the stent. There is distention of stream of the duodenal stent. There is also dilation of the biliary tree with a biliary stent placed as well. There is regional adenopathy. 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 There is no ascites. PAST MEDICAL HISTORY: Significant for colon cancer, first diagnosed in 2000 and resected. 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 PAST SURGICAL HISTORY: Right hemicolectomy, a port placement in his right chest, an upper endoscopy with duodenal stent placement in September 2017, ERCP with biliary stent placement, also with a covered met al biliary stent in September 2017. MEDICATIONS: Currently, what he describes as an immunotherapy being directed by Dr. Dominguez. ALLERGIES: None known. FAMILY HISTORY: Significant for father with colon cancer and a brother with colon cancer. No other known malignancies. He has no knowledge of previous testing for Truong syndrome. SOCIAL HISTORY: The patient has never been . He has no biologic children. 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 He has a previous history of tobacco use, 2 packs per day. Quit for 40 years. Piero burciaga has a steady girlfriend. REVIEW OF SYSTEMS: CONSTITUTIONAL: Some 10-15 pound weight loss in the past several months. No fev er, no chills, no night sweats. HEENT: No sore throat. No dysphagia for solids. PULMONARY: No co ugh or shortness of breath. CARDIOVASCULAR: No chest pain, palpitations, or syncope. GI: There schroeder s been abdominal distention, discomfort with eating, nausea with episodes of vomiting and regurgitati on. Denies constipation, melena, hematochezia, or diarrhea. RHEUMATOLOGIC: No joint pain, swelling , or deformity. DERMATOLOGIC: No rash or jaundice. No hives. ENDOCRINE: No heat or cold intolera nce. He does feel fatigued. PSYCHIATRIC: No depression, anxiety, or insomnia. HEMATOLOGIC: No br uising or epistaxis. He denies any problems with his port for use with chemotherapy. PHYSICAL EXAM: VITAL SIGNS: Blood pressure is 146/83, heart rate is 101, respirations 18, oxygenati on is 93% on room air. Temperature is 36.6. GENERAL: Thin appearing male in no acute distress. Co mfortable and able to provide his own history. HEENT: Normocephalic, atraumatic. NECK: Supple. N o adenopathy. PULMONARY: Clear to auscultation bilaterally. CARDIOVASCULAR: Regular rate and rhyt hm without murmur, rub, or gallop. Chest wall has a port in the right chest. GI: Abdomen is slight ly distended centrally with a bit of tympany. I believe there might be a slight succussion splash to the stomach, but I cannot be certain of this. ABDOMEN: Nontender. No guarding. No rebound. It i s compressible. Bowel sounds are present. MUSCULOSKELETAL: No joint deformity, swelling, or warmth . DERMATOLOGIC: Pale. No jaundice or rash. NEUROLOGIC: Alert to person, place, and time. Normal speech and affect. Ambulates normally without ataxia. Nonfocal motor exam. LYMPH: There is no pa lpable adenopathy in the neck or axilla. DATABASE: Results: White blood count is 9.2, hematocrit is 36, platelets are 387. INR is 1.32. So dium 133, potassium 3.9, chloride 101, bicarbonate 22, BUN 11, creatinine 0.7, magnesium 1.9, total b ilirubin 1.8, AST 50, ALT 52, alkaline phosphatase 763, total protein 6.8, albumin 3.6. IMAGING: Includes a CT scan of the abdomen and pelvis on June 30, 2018. This shows the stomach, 1st and 2nd portion of the duodenum, are gas and contrast filled and distended and more dilated rela tive to previous CT on June 14. Oral contrast is present in the proximal portion of the duodena l stent, but soft tissue narrows and obstructs this in its midportion and very minimal diluted oral c ontrast can get through the downstream portion of the stent into the proximal jejunum. There also ap pears to be retained food products within the stent, but ingrowth of neoplasm is felt to also be pres ent. The downstream small and large bowel are of normal caliber. There is stool within the colon. There is a 2.2 x 2.5 cm soft tissue mass along the anterior aspect of the duodenal stent, contiguous with the duodenum and pancreatic head. 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 The main portal vein and splenic vein are patent. The superior mesenteric vein is occ luded and encased by soft tissue density off the inferior margin of the pancreas, likely malignant. No ascites. No peritoneal implants. No pneumoperitoneum. No dilation of the renal collecting syste m or kidney. IMPRESSION: 1. Nausea with vomiting. 2. Epigastric abdominal pain. 3. Weight loss. 4. 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 5. Previous history of colon cancer with a right hemicolectomy. 6. 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 7. Occluded duodenal stent. RECOMMENDATIONS: 1. In my opinion, I believe the best long-term solution is a gastric bypass. I think a gastrojejuno stomy would offer him the most long-term durable palliation of what is likely to be recurrent obstruc tion of his antral duodenal stent. He is receiving ongoing chemotherapy and seems to have at least r adiographic and clinical response and while it is difficult to predict his longer-term prognosis, I t hink recurring problems with his enteral stent will likely continue and will be unlikely to provide g ood palliative ability to eat and drink and provide nutritional support. 2. Intravenous fluids. 3. Nothing by mouth. 4. Esophagogastroduodenoscopy tomorrow morning to evaluate the cause of the duodenal stent obstructi on to see if it is debris or food that I can open up. If it does appear to be malignant tumor growth , there will really be no way to open this further and surgery will be necessary to correct this obst ructive process. 5. I have discussed this with the patient, who is aware and agreeable to have endoscopy tomorrow. Matty escudero recommendations to follow. /[id number]/MODL
--- NOTE | 2018-06-30 20:59 | GCON ---
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 The patient presente d with fevers, right upper quadrant tenderness. CT scan showed a portal vein thrombosis and a mass s urrounding the ampulla of Vater with associated duodenal involvement/obstruction. The patient has schroeder d an ERCP with placement of a common bile duct stent as well as a duodenal stent. The patient had evidence of an MMR deficient tumor and thus was treated initially with pembrolizumab. Interval CAT scans done in February of 2018 showed some small degree of improvement in his primary t umor and thus treatment was continued. The patient reports 2-3 weeks of progressive dysphagia to both liquids and solids. He has essentiall y been unable to eat or drink for the past 48-72 hours. He has lost approximately 10 pounds over the past month. He reports some mild epigastric pain radiating into the right upper quadrant. He denie s abdominal distention. He denies fevers or chills. He is moving his bowels daily. He denies signi ficant nausea. He was directly admitted to the hospital from the Oncology Clinic. A CT of the abdomen performed ear lier today reveals a partially obstructed duodenal stent. Differential diagnosis includes retained f ood products versus malignant in-growth. His primary mass is essentially stable when compared to his prior studies and stable when compared to a study done in February of last year. PAST MEDICAL HISTORY: Essentially unremarkable prior to his cancer diagnosis. FAMILY MEDICAL HISTORY: Positive for colorectal cancer in multiple family members. 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 He lives locally in [place]. He is a nonsmoker. REVIEW OF SYSTEMS: As outlined above. Remainder of 12-point review of systems otherwise negative. PHYSICAL EXAM: GENERAL: The patient is resting comfortably in bed. He is in no acute distress. Th ere is no scleral icterus. HEART: Regular without murmur. LUNGS: Clear bilaterally. ABDOMEN: So ft. There is no reproducible tenderness in the epigastrium or right upper quadrant. No hepatomegaly . No abdominal distention. No palpable abdominal mass. Bowel sounds normoactive. EXTREMITIES: No extremity swelling or edema. PSYCH: Patient is alert, oriented, and appropriate. IMAGING STUDIES: As per HPI. White count 9.2, hemoglobin 11.7, hematocrit 36.0, platelet count is 3 87,000, absolute neutrophil count is 7600. Sodium 133, potassium 3.9, chloride 101, bicarb 22, BUN 1 1, creatinine 0.7, calcium 8.7, bilirubin is 1.8, AST 50, ALT 52, alkaline phosphatase is 763. His a lkaline phosphatase has been steadily rising since April of last year. IMPRESSION: 1. 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 2. 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 3. Common bile duct obstructions secondary to #1 status post common bile duct stent placement. 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 He has an indwelling duod enal stent and common bile duct stent. He presents with obstruction of his duodenal stent. I do not e on his CT that he has some dilated ducts in the liver suggesting at least a partial obstruction of his common bile duct stent. His alkaline phosphatase has been rising. A review of his CT does not show any significant change in the primary mass arising from the ampulla of Vater suggesting that tumor progression is a less likely cause for his stent obstruction. It is p ossible he has a food particulate matter in the stent. I favor an upper endoscopy as the next step to more fully assess the underlying cause of his obstruct ion. GI has been consulted and hopefully upper endoscopy will be able to be facilitated tomorrow. The patient will be kept n.p.o. He will be given IV fluid hydration. He is not in a significant chacho unt of pain currently. Further recommendations will be made once the results of his upper endoscopy are known. Our service will continue to follow him during the hospital stay. Dr. Dominguez is aware of his admission. His case was discussed with the hospitalist service. Total time for today's visit was approximately 45 minutes, of which greater than 50% was spent in cou nseling and care coordination. /[id number]/MODL
[2018-07-01 06:32] LABS: PLATELET COUNT 293 10^3/uL (150-400)
--- NOTE | 2018-07-01 08:48 | ASMTCMCOM ---
CM Note CM Note Notes: Patient admitted for n/v and inability to take in any liquids/solids. He has a history of colon cancer and duodenal stent placement one year ago. After consults by Oncology, Surgery, and GI, it's been determined that he has an obstruction of the stent. He will have an upper endoscopy today. Patient is normally independent. Lives at home w girlfriend. After two admissions in May, he went home without any needs/services. Given the uncertainty of his medical needs right now, Case Management will continue to follow. Current CM Discharge plan: TBD Date Signed: 07/01/2018 08:47 AM Electronically Signed By:Justine Llanes RN
[2018-07-01] MEDS ORDERED: LR 1,000 ML IV ONE (10:46)
[2018-07-01] MEDS ORDERED: PROPOFOL 200 MG/20 ML VIAL ONE (11:10)
[2018-07-01] MEDS ORDERED: fentaNYL 100 MCG/2 ML INJ ONE (11:10)
[2018-07-01] MEDS ORDERED: LIDOCAINE 2% 5 ML SDV ONE (11:12)
[2018-07-01] MEDS ORDERED: SUCCINYLCHOLINE CHLORIDE 200 MG/10 ML SYR IVP ONE (11:13)
[2018-07-01] MEDS ORDERED: DEXAMETHASONE 4 MG/ML VIAL ONE (11:16)
[2018-07-01] MEDS ORDERED: MIDAZOLAM 2 MG/2 ML VIAL ONE (11:17)
--- NOTE | 2018-07-01 11:22 | PDANEPAE ---
ANE Past Medical History - Cardiovascular History Hx Hypertension: No Hx Arrhythmias: No Hx Chest Pain: No Hx Coronary Artery / Peripheral Vascular Disease: No Hx CHF / Valvular Disease: No Hx Palpitations: No - Pulmonary History Hx COPD: No Hx Asthma/Reactive Airway Disease: No Hx Recent Upper Respiratory Infection: No Hx Oxygen in Use at Home: No Hx Sleep Apnea: No Sleep Apnea Screening Result - Last Documented: Negative - Endocrine History Hx Diabetes: No - Cancer History Hx Cancer: Yes Cancer History Comment: duodenal, colon - GI History Hx Gastrointestinal Disorders: Yes ANE Review of Systems Review of Systems: - Exercise capacity Exercise capacity: >=4 METS ANE Patient History - Allergies Allergies/Adverse Reactions: No Known Allergies Allergy (Verified 06/30/18 10:59) - Home Medications Home Medications: Multivitamins W-Minerals [Thera M Plus Tablet (*)] 1 each PO DAILY 10/04/17 [ Last Taken Unknown] Cetirizine [ZyrTEC 10 mg (*)] 10 mg PO DAILY 05/19/18 [Last Taken 06/30/18] Acetaminophen [Tylenol 325mg (*)] 650 mg PO Q6 PRN 05/27/18 [Last Taken Unknown] Pantoprazole Sodium [Protonix 40mg (*)] 40 mg PO BID PRN 05/27/18 [Last Taken ] - NPO status NPO Since - Liquids (Date): 06/30/18 NPO Since - Liquids (Time): 20:00 NPO Since - Solids (Date): 06/30/18 NPO Since - Solids (Time): 20:00 - Smoking Hx Smoking Status: Former smoker - Alcohol Use Alcohol Use: Occasionally ANE Labs/Vital Signs - Labs Result Diagrams: 07/01/18 04:30 07/01/18 04:30 - Vital Signs Vital Signs: reviewed preoperatively; see RN documention for details Blood Pressure: 132/77 Heart Rate: 92 Respiratory Rate: 16 O2 Sat (%): 94 Height: 172.72 cm Weight: 60.282 kg ANE Physical Exam - Airway Neck exam: FROM Mallampati Score: Class 3 Mouth exam: normal dental/mouth exam - Pulmonary Pulmonary: clear to auscultation - Cardiovascular Cardiovascular: regular rate and rhythym - ASA Status ASA Status: III ANE Anesthesia Plan Anesthesia Plan: general endotracheal anesthesia
[2018-07-01] MEDS ORDERED: ALBUTEROL 3 ML DEYVIAL IH PRN (11:47)
[2018-07-01] MEDS ORDERED: DIAZEPAM 5 MG/ML 1 ML SYR IVP PRN (11:47)
[2018-07-01] MEDS ORDERED: NALOXONE HCL 0.4 MG/ML INJ IVP PRN (11:47)
[2018-07-01] MEDS ORDERED: PROMETHAZINE HCL 25 MG/ML INJ IVP PRN (11:47)
[2018-07-01] MEDS ORDERED: MEPERIDINE 25 MG/0.5 ML AMP IVP PRN (11:47)
[2018-07-01] MEDS ORDERED: LR 500 ML IV PRN (11:47)
[2018-07-01] MEDS ORDERED: fentaNYL 100 MCG/2 ML INJ IVP PRN (11:47)
[2018-07-01] MEDS ORDERED: ONDANSETRON 4 MG/2 ML VIAL IVP PRN (11:47)
--- NOTE | 2018-07-01 12:00 | GIREPORT ---
Formerly [facility] Surgical Services - Endoscopy Department Patient Name: Jr Villaseñor Procedure Date: 07/01/2018 11:10 AM Patient Type: Inpatient Attending MD/ ER Physician: Hayden Young MD Procedure: Upper GI endoscopy Indications: Epigastric abdominal pain, Malignant adenocarcinoma of the duodenum, Stenosis of the duodenum Providers: Hayden Young MD Medicines: General Anesthesia Complications: No immediate complications. Description of Procedure: After obtaining informed consent, the endoscope was passed under direct vision. Throughout the procedure, the patient's blood pressure, pulse, and oxygen saturations were monitored continuously. The Endoscope was intro duced through the mouth, and advanced to the third part of duodenum. The aide ent tolerated the procedure well. The upper GI endoscopy was accomplished without difficulty. Findings: The esophagus was normal. A large, frond-like/villous and polypoid, circumferential mass with no bleeding and no stigmata of recent bleeding was found in the prepyloric region of the stomach and at the pylorus. A large frond-like/villous, infiltrative and ulcerated mass with no ble eding was found in the ampulla, in the first portion of the duodenum and in t he second portion of the duodenum. A previously placed duodenal stent was seen in the duodenal bulb, in th e first portion of the duodenum and in the second portion of the duodenum . A previously placed metal biliary stent was seen in the area of the pap illa. Estimated Blood Loss: Estimated blood loss: none. Post Op Diagnosis: - Normal esophagus. - Malignant gastric tumor in the prepyloric region of the stomach and a t the pylorus. - Malignant duodenal mass. - Duodenal stent in the duodenum. - Metal biliary stent in the duodenum. - No specimens collected. Recommendation: - Refer to a surgeon at appointment to be scheduled. - He has been seen by general surgery already and after discussion with Dr. Romeo Arambula we feel a surgical bypass (possible gastro-jejunostomy) would be the best solution to his gastric and duodenal malignant obstruction. - Full liquid diet today. - Return patient to [facility]. - Thank you for allowing me to be involved in the care of your patient. Attending Participation: I personally performed the entire procedure without the assistance of a fellow, resident or surg ical delinquent tax collector assistant. Hayden Young MD Hayden Young MD 07/01/2018 12:00:12 PM This report has been signed electronicallyDavid MD Hannah Number of Addenda: 0 Note Initiated On: 07/01/2018 11:10 AM [email or web address]
--- NOTE | 2018-07-01 12:33 | HOSPPROG ---
Hospitalist Progress Note Assessment/Plan: 67 year old male with pmh of duodenal cancer admitted with decreased PO intake and abdominal pain. Abdominal pain- GI and general surgery consulted. Plan for today is to take to EGD, then depending on the results consider gastro-jejunostomy by surgery. -EGD today showed large "frond like" circumferential mass in the pre-pyloric region of the stomach at the pylorus, with another large frondlike mass in the 1st and 2nd portion of the duodenum. GI currently recommending referral to a surgeon for gastrojejunostomy given the extent of his disease. -intravenous saline -IV PPI -pain control -antiemetics -surgery to evaluate for operative management this point Hyponatremia- suspect hypovolemic hyponatremia in the setting of poor oral intake. check urine studies, continue intravenous saline. Hyperbilirubinemia- CT scan today showed patent common bile duct stent. Will monitor LFTs Duodenal cancer- follows with Dr. Dominguez. Already had chemo with recurrence, appears options are fairly limited at this point. -oncology consulted -GI consulted for possible EGD in the morning ppx- SCDs, Lovenox Fluids- intravenous saline Electrolytes-hyponatremia Nutrition-full liquid diet Cor-full code Dispo-inpatient for abdominal pain nausea vomiting Subjective: Minimal pain, not taking much orally. Objective: Vital Signs Temp Pulse Resp BP Pulse Ox 36.9 C 94 18 122/67 H 93 07/01/18 12:00 07/01/18 12:15 07/01/18 12:15 07/01/18 12:15 07/01/18 12:15 Laboratory Results 07/01/18 04:30 07/01/18 04:30 06/30/18 07/01/18 07/02/18 05:59 05:59 05:59 Intake Total 1025 720 Output Total 0 Balance 1025 720 - Physical Exam Constitutional: no apparent distress, appears nourished, not in pain Eyes: PERRL, anicteric sclera, EOMI Ears, Nose, Mouth, Throat: moist mucous membranes, hearing normal, ears appear normal, no oral mucosal ulcers Cardiovascular: regular rate and rhythym, no murmur, rub, or gallop Respiratory: no respiratory distress, no rales or rhonchi, clear to auscultation Gastrointestinal: normoactive bowel sounds, soft, non-tender abdomen, no palpable masses Genitourinary: no bladder fullness, no bladder tenderness, no renal bruits Skin: no rashes or abrasions, no fluctuance, no induration Musculoskeletal: full muscle strength, no muscle tenderness, normal joint ROM Neurologic: AAOx3, sensation intact bilaterally Psychiatric: interacting appropriately, not anxious, not encephalopathic, thought process linear Lymph, Heme, Immunologic: no cervical LAD, no supraclavicular LAD ICD10 Worksheet Patient Problems: Problems Problem Status Onset Fever Acute Gastric outlet obstruction Acute Rigors Acute
--- NOTE | 2018-07-01 13:06 | POSTANESTH ---
Post Anesthetic Evaluation Cardiovascular Status: Normal, Stable Respiratory Status: Normal, Stable Level of Consciousness/Mental Status: Can Participate in Eval Pain Control: Adequate, Prn Tx Ordered Nausea/Vomiting Control: Adequate, Prn Tx Ordered Complications Possibly Related to Anesthesia: None Noted
[2018-07-01] MEDS: ENOXAPARIN 40 MG/0.4 ML SYR SC SCH (13:30)
--- NOTE | 2018-07-01 15:09 | SOAPPROG ---
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 We discussed the procedural risks and expected recovery. Informed consent was obtained. 07/01/18 15:11 07/02/18 06:24 Subjective: I spoke with Jr prior to his endoscopy with Dr. Chacko. 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 We discussed the possible need for surgical bypass to allow him to continue eating and regaining the strength he needs to continue chemotherapy. Following the EGD, which showed tumor ingrowth and compression of the stent, I discussed the findings with Jr and recommended a gastrojejunostomy and jejunal feeding tube for temporary post op feedings. He is in agreeable. I have also discussed his case with Drs. Dominguez and Vivi and they concur. Objective: Vital Signs Temp Pulse Resp BP Pulse Ox 36.3 C 94 18 139/82 H 91 L 07/01/18 15:03 07/01/18 15:03 07/01/18 15:03 07/01/18 15:03 07/01/18 15:03 Laboratory Results 07/01/18 04:30 07/01/18 04:30 06/30/18 07/01/18 07/02/18 05:59 05:59 05:59 Intake Total 1025 720 Output Total 0 Balance 1025 720 - Time Spent With Patient Time Spent With Patient: 15 min - Pending Discharge Pending Discharge Within 24 Hours: No Pending Discharge Within 48 Hours: No Physical Exam - Physical Exam General Appearance: alert, no apparent distress, thin Respiratory: lungs clear, normal breath sounds Cardiac/Chest: regular rate, rhythm Abdomen: soft, distended (hypo-active bowel sounds, firm area RUQ without tenderness, tympanitic LUQ, healed midline incision) Male Genitalia: deferred Rectal: deferred Skin: warm/dry Extremities: other (right subclavian venous port) Neuro/Psych: alert, normal mood/affect, oriented x 3 ICD10 Worksheet Patient Problems: Problems Problem Status Onset Fever Acute Gastric outlet obstruction Acute Rigors Acute
--- NOTE | 2018-07-01 15:18 | SOAPPROG ---
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 Options include attempting to place a second stent versus surgical bypass. He has had a good initial response to Immunotherapy treatment (Initial tumor > 9 cm, now < 3 cm). I was able to discuss his case with Dr. Greene. I think that at this point surgical bypass is the patient's best option. I think that a second duodenal stent is unlikely to provide much benefit in the care home, and the patient's best window for surgery is likely now. We discussed this. He would like to proceed with surgery. Dr. Greene plans to meet with him to discuss this in more detail. Patient's questions were answered. Plan to continue Immunotherapy as an outpatient, as he has had a very good initial response. Case d/w Hospitalist service 07/01/18 15:04 07/01/18 15:19 Subjective: EGD shows tumor obstruction in duodenum. Objective: Vital Signs Temp Pulse Resp BP Pulse Ox 36.3 C 94 18 139/82 H 91 L 07/01/18 15:03 07/01/18 15:03 07/01/18 15:03 07/01/18 15:03 07/01/18 15:03 Laboratory Results 07/01/18 04:30 07/01/18 04:30 06/30/18 07/01/18 07/02/18 05:59 05:59 05:59 Intake Total 1025 720 Output Total 0 Balance 1025 720 - Time Spent With Patient Time Spent With Patient: 25 minutes Physical Exam - Physical Exam General Appearance: alert, no apparent distress EENT: PERRL/EOMI Abdomen: non-tender, soft, No distended Neuro/Psych: alert, normal mood/affect ICD10 Worksheet Patient Problems: Problems Problem Status Onset Fever Acute Gastric outlet obstruction Acute Rigors Acute
--- NOTE | 2018-07-01 18:35 | PDMN ---
Medical Necessity Medical necessity: Change to inpt as of 07/01/18 @ 1616, meets int criteria per MD order and Gastroenterology GRG. 67 y/o w/hx duodenal cancer admitted w/ decreased PO intake and abd pain. Upgraded to inpt for further treatment needed , EGD today showed duodenal obstruction, gastric outlet obstruction, duodenal adenocarcinoma, surg consult, oncology consult. Pt will likely have gastrojejunostomy this admission given extent of his disease. Est LOS>2MN for ongoing eval/management of above.
[2018-07-02] MEDS: NS 1,000 ML IV SCH (01:45)
[2018-07-02 06:06] LABS: PLATELET COUNT 287 10^3/uL (150-400)
--- NOTE | 2018-07-02 07:10 | PDANEPAE ---
ANE History of Present Illness adenoca of duodenum ANE Past Medical History - Cardiovascular History Hx Hypertension: No Hx Arrhythmias: No Hx Chest Pain: No Hx Coronary Artery / Peripheral Vascular Disease: No Hx CHF / Valvular Disease: No Hx Palpitations: No - Pulmonary History Hx COPD: No Hx Asthma/Reactive Airway Disease: No Hx Recent Upper Respiratory Infection: No Hx Oxygen in Use at Home: No Hx Sleep Apnea: No Sleep Apnea Screening Result - Last Documented: Negative - Endocrine History Hx Diabetes: No Hypothyroid: No Hyperthyroid: No Obesity: no - Cancer History Hx Cancer: Yes Cancer History Comment: duodenal, colon - GI History GERD: mild Hx Gastrointestinal Disorders: Yes - Surgical History Prior Surgeries: colon ANE Review of Systems Review of systems is: negative Review of Systems: - Exercise capacity METS (RN): 4 METS ANE Patient History - Allergies Allergies/Adverse Reactions: No Known Allergies Allergy (Verified 06/30/18 10:59) - Home Medications Home medications: home medication list seen and reviewed Home Medications: Multivitamins W-Minerals [Thera M Plus Tablet (*)] 1 each PO DAILY 10/04/17 [ Last Taken Unknown] Cetirizine [ZyrTEC 10 mg (*)] 10 mg PO DAILY 05/19/18 [Last Taken 06/30/18] Acetaminophen [Tylenol 325mg (*)] 650 mg PO Q6 PRN 05/27/18 [Last Taken Unknown] Pantoprazole Sodium [Protonix 40mg (*)] 40 mg PO BID PRN 05/27/18 [Last Taken ] - NPO status NPO Status: no food or drink >8 hours NPO Since - Liquids (Date): 06/30/18 NPO Since - Liquids (Time): 20:00 NPO Since - Solids (Date): 06/30/18 NPO Since - Solids (Time): 20:00 - Anes Hx Anes Hx: no prior problems - Smoking Hx Smoking Status: Former smoker - Alcohol Use Alcohol Use: Occasionally - Family Anes Hx Family Anes Hx: none ANE Labs/Vital Signs - Labs Result Diagrams: 07/02/18 05:57 07/02/18 05:57 - Vital Signs Blood Pressure: 99/57 Heart Rate: 74 Respiratory Rate: 16 O2 Sat (%): 95 Height: 172.72 cm Weight: 57.2 kg ANE Physical Exam - Airway Neck exam: FROM Mallampati Score: Class 3 Mouth exam: normal dental/mouth exam - Pulmonary Pulmonary: no respiratory distress, clear to auscultation - Cardiovascular Cardiovascular: regular rate and rhythym, no murmur, rub, or gallop - ASA Status ASA Status: III ANE Anesthesia Plan Anesthesia Plan: general endotracheal anesthesia
[2018-07-02] MEDS ORDERED: fentaNYL 250 MCG/5 ML INJ ONE (07:31)
[2018-07-02] MEDS ORDERED: PROPOFOL/EMULSION 500 MG/50 ML BOTTLE IV ONE (07:31)
[2018-07-02] MEDS ORDERED: LIDOCAINE 2% 5 ML SDV ONE (07:32)
[2018-07-02] MEDS ORDERED: ROCURONIUM 50 MG/5 ML VIAL ONE (07:32)
[2018-07-02] MEDS ORDERED: BUPIVACAINE 0.25% 30 ML SDV ONE (07:50)
--- NOTE | 2018-07-02 08:32 | HOSPPROG ---
Hospitalist Progress Note Assessment/Plan: #Locally-advanced adenocarcinoma of ampulla of vater -responding to Immunotherapy #Duodenal obstruction: due to above -gastrojejunostomy with feeding tube today #Hypovolemic hyponatremia: resolved #Hypokalemia: IV repletion #Normocytic anemia: no indication for transfusion #Hyperbilirubinemia: due to duodenal obstruction #Prior ascending colon adenocarcinoma: s/p resection #CBD obstruction: stent in place #DVT ppx: Lovenox #Inpatient admission for pain control, IVFs Subjective: s/p gastojejunostomy Objective: Vital Signs Temp Pulse Resp BP Pulse Ox 36.6 C 75 16 116/71 95 07/02/18 07:49 07/02/18 07:49 07/02/18 07:49 07/02/18 07:49 07/02/18 07:49 Laboratory Results 07/02/18 05:57 07/02/18 05:57 07/01/18 07/02/18 07/03/18 05:59 05:59 05:59 Intake Total 1025 5449 Output Total 0 Balance 1025 5449 - Time Spent With Patient Time Spent with Patient: greater than 35 minutes Time Spent with Patient: Greater than 35 minutes spent on this patients care, greater than 50% of time spent counseling, educating, and coordinating care regarding the above mentioned plan. - Physical Exam Constitutional: cachectic Eyes: PERRL Ears, Nose, Mouth, Throat: moist mucous membranes Cardiovascular: regular rate and rhythym Respiratory: no respiratory distress Gastrointestinal: other (G-J tube in place) Genitourinary: no bladder fullness Skin: warm Musculoskeletal: full muscle strength Neurologic: AAOx3, CN II-XII Intact Psychiatric: interacting appropriately ICD10 Worksheet Patient Problems: Problems Problem Status Onset Fever Acute Gastric outlet obstruction Acute Rigors Acute
[2018-07-02] MEDS ORDERED: ceFAZolin 2 GM/DEXTROSE 100 ML IV ONE (09:43)
[2018-07-02] MEDS ORDERED: CEFAZOLIN 2 GM/DEXTROSE/100 ML BAG IV ONE (09:45)
[2018-07-02] MEDS ORDERED: MIDAZOLAM 2 MG/2 ML VIAL ONE (09:50)
[2018-07-02] MEDS ORDERED: ePHEDrine SULFATE 25 MG/5 ML SYR ONE (10:03)
[2018-07-02] MEDS ORDERED: ONDANSETRON 4 MG/2 ML VIAL ONE (10:44)
[2018-07-02] MEDS ORDERED: GLYCOPYRROLATE 0.2 MG/1 ML VIAL ONE (11:06)
[2018-07-02] MEDS ORDERED: NEOSTIGMINE METHYLSULFATE 5 MG/5 ML SYR ONE (11:06)
[2018-07-02] MEDS ORDERED: LR 500 ML IV PRN (11:21)
[2018-07-02] MEDS ORDERED: NALOXONE HCL 0.4 MG/ML INJ IVP PRN (11:21)
[2018-07-02] MEDS ORDERED: PROMETHAZINE HCL 25 MG/ML INJ IVP PRN (11:21)
[2018-07-02] MEDS ORDERED: HYDROmorphONE/DILAUDID 2 MG/ML INJ IVP PRN (11:21)
[2018-07-02] MEDS ORDERED: DEXAMETHASONE 4 MG/ML VIAL IVP PRN (11:21)
[2018-07-02] MEDS ORDERED: fentaNYL 100 MCG/2 ML INJ ONE (11:36)
[2018-07-02] MEDS: fentaNYL 100 MCG/2 ML INJ IVP PRN ×2 (11:40→12:06)
--- NOTE | 2018-07-02 11:44 | POSTOPPROG ---
Post Op Note Date of Operation: 07/02/18 Surgeon: Efra rGeene (, FACS) Anesthesiologist: Agustina Santamaria MD Anesthesia: GET(General Endotracheal) Pre-op Diagnosis: ampulary CA with duodenal obstruction Post-op Diagnosis: same Procedure: gastrojejunostomy/feeding jejunostomy Inf/Abcess present in the surg proc area at time of surgery?: No EBL: Minimal (10 ml)
--- NOTE | 2018-07-02 12:32 | SOAPPROG ---
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 02 JUL 2018 = POD# 1 Plan: - post op recovery from gastrojejunostomy/feeding tube placement is his first clinical challenge. Continue post op management per Dr. Greene. - He has had a good initial response to Immunotherapy treatment (Initial tumor > 9 cm, now < 3 cm). Plan to continue Immunotherapy as an outpatient, as he has had a very good initial response. Will follow with you. Subjective: 'I feel groggy' Objective: Vital Signs Temp Pulse Resp BP Pulse Ox 36.3 C 91 11 L 142/82 H 99 07/02/18 11:59 07/02/18 11:59 07/02/18 12:02 07/02/18 12:02 07/02/18 12:02 Laboratory Results 07/02/18 05:57 07/02/18 05:57 06/30/18 07/01/18 07/02/18 23:59 23:59 23:59 Intake Total 125 4974 2375 Output Total 0 Balance 125 4974 2375 Physical Exam - Physical Exam General Appearance: other (appears to be fatigued) Respiratory: lungs clear Cardiac/Chest: regular rate, rhythm Abdomen: other (diminished but present bowel sounds) Skin: warm/dry, pallor Neuro/Psych: other (slightly sedated but answers questions appropriately) ICD10 Worksheet Patient Problems: Problems Problem Status Onset Fever Acute Gastric outlet obstruction Acute Rigors Acute
[2018-07-02] MEDS: POTASSIUM Cl (KCl) 100 ML IV SCH ×5 (13:28→16:44)
[2018-07-02] MEDS: HYDROmorphONE/DILAUDID 1 MG/ML INJ IVP PRN ×2 (13:39→15:54)
[2018-07-02] MEDS: LR 1,000 ML IV SCH (17:47)
[2018-07-02] MEDS: KETOROLAC 15 MG/1 ML SDV IVP PRN ×2 (17:48→23:54)
[2018-07-03] MEDS: HYDROmorphONE/DILAUDID 1 MG/ML INJ IVP PRN (01:18)
[2018-07-03] MEDS: LR 1,000 ML IV SCH (01:35)
[2018-07-03 04:49] LABS: PLATELET COUNT 422 10^3/uL (150-400)
[2018-07-03] MEDS: NS 1,000 ML IV SCH ×2 (09:02→20:00)
--- NOTE | 2018-07-03 09:48 | ASMTCMCOM ---
CM Note CM Note Notes: Chart reviewed. Patient recovering from gastrojejunostomy placement. CM to follow for needs, will place referral for home infusion company as he will need feedings. Plan: Likely home with home infusion and C RN. Date Signed: 07/03/2018 09:47 AM Electronically Signed By:Edna Trejo RN
--- NOTE | 2018-07-03 10:21 | SOAPPROG ---
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 remote history adenocarcinoma of the colon weight loss and malnutrition s/p gastrojejunostomy/feeding jejunostomy 07/02 doing well post op with moderate gastric drainage Plan: Vivonex via J-tube to goal of 75 ml/hr will place NGT to gravity drainage when post op ileus resolves 07/01/18 15:11 07/02/18 06:24 07/03/18 10:19 Subjective: resting comfortably/incisional pain Objective: Vital Signs Temp Pulse Resp BP Pulse Ox 36.6 C 108 H 16 123/88 H 91 L 07/03/18 07:31 07/03/18 07:31 07/03/18 07:31 07/03/18 07:31 07/03/18 07:31 Laboratory Results 07/03/18 04:25 07/03/18 04:25 07/02/18 07/03/18 07/04/18 05:59 05:59 05:59 Intake Total 5449 2908 385 Output Total 0 620 1100 Balance 5449 2288 -586 - Time Spent With Patient Time Spent With Patient: 15 - Pending Discharge Pending Discharge Within 24 Hours: No Pending Discharge Within 48 Hours: No Physical Exam - Physical Exam General Appearance: alert, no apparent distress EENT: other (bilious NGT drainage 1100ml) Cardiac/Chest: regular rate, rhythm Abdomen: normal bowel sounds, soft, other (incision o.k./feeding tube secured with new dressing/Vivonex via Jtube) Skin: warm/dry Neuro/Psych: alert, normal mood/affect, oriented x 3 ICD10 Worksheet Patient Problems: Problems Problem Status Onset Gastric outlet obstruction Acute Rigors Acute Fever Acute
[2018-07-03] MEDS: ENOXAPARIN 40 MG/0.4 ML SYR SC SCH (10:42)
[2018-07-03] MEDS: KETOROLAC 15 MG/1 ML SDV IVP PRN ×2 (10:44→16:58)
--- NOTE | 2018-07-03 14:05 | SOAPPROG ---
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 03 JUL 2018 = POD# 2 Post op pain is better today. He is sitting in a chair watching basketball. No new complaints or questions at the moment. Plan: - post op recovery from gastrojejunostomy/feeding tube placement is his first clinical challenge. Continue post op management per Dr. Greene. - He has had a good initial response to Immunotherapy treatment (Initial tumor > 9 cm, now < 3 cm). Plan to continue Immunotherapy as an outpatient, as he has had a very good initial response. Will follow with you. No specific oncologic intervention needed today. Subjective: No new complaints feels stronger. Up in chair Objective: Vital Signs Temp Pulse Resp BP Pulse Ox 36.6 C 97 16 135/74 H 93 07/03/18 11:09 07/03/18 11:09 07/03/18 11:09 07/03/18 11:09 07/03/18 11:09 Laboratory Results 07/03/18 04:25 07/03/18 04:25 07/01/18 07/02/18 07/03/18 23:59 23:59 23:59 Intake Total 4978 7591 1845 Output Total 0 420 1300 Balance 4974 2015 951 Physical Exam - Physical Exam General Appearance: alert, no apparent distress Respiratory: lungs clear Cardiac/Chest: regular rate, rhythm Abdomen: distended, No normal bowel sounds Skin: pallor ICD10 Worksheet Patient Problems: Problems Problem Status Onset Fever Acute Gastric outlet obstruction Acute Rigors Acute
--- NOTE | 2018-07-03 14:09 | HOSPPROG ---
Hospitalist Progress Note Assessment/Plan: #Locally-advanced adenocarcinoma of ampulla of vater -responding to Immunotherapy #Duodenal obstruction: due to above -gastrojejunostomy with feeding tube 07/02. Tolerating TFs -continue NG tube #Hypovolemic hyponatremia: cont IVs #Hypokalemia: IV repletion #Normocytic anemia: no indication for transfusion #Hyperbilirubinemia: due to duodenal obstruction #Moderate protein caloric malnutrition: Alb 2.6. Now receiving TFs #Prior ascending colon adenocarcinoma: s/p resection #CBD obstruction: stent in place #DVT ppx: Lovenox #Inpatient admission for pain control, IVFs Subjective: abd pain much improved Objective: Vital Signs Temp Pulse Resp BP Pulse Ox 36.6 C 97 16 135/74 H 93 07/03/18 11:09 07/03/18 11:09 07/03/18 11:09 07/03/18 11:09 07/03/18 11:09 Laboratory Results 07/03/18 04:25 07/03/18 04:25 07/02/18 07/03/18 07/04/18 05:59 05:59 05:59 Intake Total 5449 2908 385 Output Total 0 620 1100 Balance 5449 1325 -285 - Time Spent With Patient Time Spent with Patient: greater than 35 minutes Time Spent with Patient: Greater than 35 minutes spent on this patients care, greater than 50% of time spent counseling, educating, and coordinating care regarding the above mentioned plan. - Physical Exam Constitutional: cachectic Eyes: PERRL Ears, Nose, Mouth, Throat: moist mucous membranes Cardiovascular: regular rate and rhythym Respiratory: no respiratory distress Gastrointestinal: normoactive bowel sounds, other (GJ tube in place) Genitourinary: no bladder fullness Skin: warm Neurologic: AAOx3, CN II-XII Intact Psychiatric: interacting appropriately ICD10 Worksheet Patient Problems: Problems Problem Status Onset Fever Acute Gastric outlet obstruction Acute Rigors Acute
[2018-07-03] MEDS: CETIRIZINE 10 MG TAB TUBE SCH (20:32)
[2018-07-03] MEDS ORDERED: ACETAMINOPHEN 650 MG SUPP PR PRN (21:19)
[2018-07-03] MEDS: PSEUDOEPHEDRINE LIQ 30 MG/10 ML UDSYR TUBE SCH (22:55)
--- NOTE | 2018-07-04 06:19 | SOAPPROG ---
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 remote history adenocarcinoma of the colon weight loss and malnutrition s/p gastrojejunostomy/feeding jejunostomy 07/02 post op fever-likely pulmonary source (atelectasis) NGT replaced with 8Fr., distal esophagus on KUB Plan: Vivonex via J-tube to goal of 75 ml/hr will not replace NGT at this time-NPO increase activity, IS 07/01/18 15:11 07/02/18 06:24 07/03/18 10:19 07/04/18 06:23 Subjective: NGT came out last night/replaced by MARICRUZ miller BM, tolerating tube feeding advance Objective: Vital Signs Temp Pulse Resp BP Pulse Ox 37.3 C 108 H 18 122/69 H 91 L 07/04/18 04:30 07/04/18 04:30 07/04/18 04:30 07/04/18 04:30 07/04/18 04:30 Laboratory Results 07/03/18 04:25 07/04/18 04:38 07/03/18 07/04/18 07/05/18 05:59 05:59 05:59 Intake Total 2908 1845 Output Total 620 2240 Balance 2288 -395 Physical Exam - Physical Exam General Appearance: alert, mild distress Cardiac/Chest: regular rate, rhythm Abdomen: soft, other (incision and JT exit sites o.k./redressed/+ BS) Male Genitalia: deferred Rectal: deferred Neuro/Psych: alert, normal mood/affect, oriented x 3 ICD10 Worksheet Patient Problems: Problems Problem Status Onset Fever Acute Gastric outlet obstruction Acute Rigors Acute
[2018-07-04] MEDS: ENOXAPARIN 40 MG/0.4 ML SYR SC SCH (08:09)
[2018-07-04] MEDS: PSEUDOEPHEDRINE LIQ 30 MG/10 ML UDSYR TUBE SCH ×2 (08:09→21:04)
[2018-07-04] MEDS: CETIRIZINE 10 MG TAB TUBE SCH (08:09)
--- NOTE | 2018-07-04 08:38 | ASMTCMCOM ---
CM Note CM Note Notes: Referral placed n [employer] for home infusion to supply feeding formula and tubing. CM to follow. Plan: Likely home with tube feedings. Date Signed: 07/04/2018 08:37 AM Electronically Signed By:Edna Trejo RN
[2018-07-04] MEDS ORDERED: POTASSIUM CL 20 MEQ/15 ML UDCUP PO ONE (10:01)
--- NOTE | 2018-07-04 15:22 | HOSPPROG ---
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 Tolerating TFs -NG fell out last night; will not replace #Hypovolemic hyponatremia: cont IVFs #Hypokalemia: repleting #Fever: post-op. Check CXR. Denies infectious sxs #Normocytic anemia: no indication for transfusion #Hyperbilirubinemia: due to duodenal obstruction #Moderate protein caloric malnutrition: Alb 2.6. Now receiving TFs #Prior ascending colon adenocarcinoma: s/p resection #CBD obstruction: stent in place #DVT ppx: Lovenox #Inpatient admission for pain control, IVFs Subjective: no dysuria, abd pain improved. Small BM Objective: Vital Signs Temp Pulse Resp BP Pulse Ox 36.7 C 98 18 122/70 H 93 07/04/18 12:07 07/04/18 12:07 07/04/18 12:07 07/04/18 12:07 07/04/18 12:07 Laboratory Results 07/03/18 04:25 07/04/18 04:38 07/03/18 07/04/18 07/05/18 05:59 05:59 05:59 Intake Total 2908 1845 140 Output Total 620 2240 650 Balance 3475 -463 -138 - Time Spent With Patient Time Spent with Patient: greater than 35 minutes Time Spent with Patient: Greater than 35 minutes spent on this patients care, greater than 50% of time spent counseling, educating, and coordinating care regarding the above mentioned plan. - Physical Exam Constitutional: cachectic Eyes: PERRL Ears, Nose, Mouth, Throat: moist mucous membranes Cardiovascular: regular rate and rhythym Respiratory: no respiratory distress Gastrointestinal: normoactive bowel sounds, other (G-J tube in place, no surrounding cellulitis) ICD10 Worksheet Patient Problems: Problems Problem Status Onset Fever Acute Gastric outlet obstruction Acute Rigors Acute
--- NOTE | 2018-07-04 18:56 | GCON ---
[f rep st] CONSULTATION DATE OF CONSULTATION: 07/04/2018 REQUESTING PHYSICIAN: Dr. Henson. REASON FOR CONSULTATION: Goals of care and symptom management. HISTORY OF PRESENT ILLNESS: The patient is a 67-year-old male, who was diagnosed with locally advanced carcinoma involving the ampulla of Vater in June 2017. He presented to the Oncology office with fevers, right upper quadrant tenderness, and progressive dysphagia to both liquids and solids. He had been unable to eat or drink for 2 to 3 days prior to this visit, and was sent immediately to the hospital for admission. Patient reports that in the month preceding admission, he had lost approximately 10 pounds and had been experiencing mild epigastric pain radiating to the right upper quadrant. He was moving his bowels daily at this point and has continued to pass flatus without difficulty. He was worked up with a CT of the abdomen, revealing a partially obstructed duodenal stent. GI consultation was obtained and an upper endoscopy was performed by Dr. Young. EGD showed a large, firm-like villous and polypoid circumferential mass with no bleeding and no stigmata of recent bleeding. In the prepyloric region, stomach, and pylorus, a large, firm-like villous infiltrative and ulcerative mass with no bleeding was found in the ampulla, in the first and second portions of the duodenum. A previously placed duodenal stent was seen in the bulb and the first and second portions of the duodenum, and a previously placed metal biliary stent was seen in the area of the papilla. It was felt based on these findings that a GJ-tube placement would be the best solution. This was placed on the and he has done well postoperatively. Patient states that he had some more significant pain yesterday, but today feels his pain is in general not bad at all, ranging from 2 to 4/10, reaching 4/10 when he coughs, otherwise under good control with current medications. He describes his pain as mostly in his epigastrium and his prior right upper quadrant pain is far less pronounced. He has had no nausea or vomiting, but has taken no p.o. since GJ-tube placement. He seems to be tolerating tube feeds well, although has not had a bowel movement now for a couple of days. He is still regularly passing flatus. Ed's understanding of his current medical status is that he has had a decent response to immunotherapy. He believes that Dr. Dominguez hopes to shrink the tumor with immunotherapy to facilitate XRT and "knock this out." We discussed his goals at this time. His hope is to be able to return home, to continue to tolerate therapy, and to move on to radiation as planned. He currently lives with a roommate, and feels that he can return to home successfully and does not believe he is slated to move forward to a rehab after this hospitalization. I note from Dr. Sykes's note of July 03, that he feels the patient has had a good initial response to immunotherapy with initial tumor greater than 9 cm, now less than 3 cm, and plan is to continue him in therapy as an outpatient as he has had a very good initial response. A call was placed to Dr. Dominguez to discuss and awaiting call back. REVIEW OF SYSTEMS: A complete review of systems was addressed. In addition to HPI, only complaints are chronic knee pain, which he attributes to playing football when he was younger, scalp eczema, and an occasional cough, which I noted was wet sounding. He states he cannot completely clear his secretions due to pain in his abdomen with coughing at the moment. We briefly discussed his advance directives. Ed has never discussed code status or his wishes surrounding resuscitation before, and it did not appear he wished to get into this conversation today. He has not assigned an MD POA. I encouraged him to do so and discussed doing so either while in the hospital or in palliative care followup in the outpatient setting. SOCIAL HISTORY: Patient was born in [place]. His father was in the [place], so they moved quite a bit when he was younger. He has been in [place] for the last 15 years. 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 He served for 6 years in [employer] in the [employer]. He has never . Most of his family is in [place]. He has no religious affiliation. He lives with a roommate, who is a long-time friend. Review of systems is as detailed above. PAST MEDICAL HISTORY: 1. History of colon cancer (no details available). 2. Duodenal ampullary cancer. PAST SURGICAL HISTORY: Duodenal and common bile duct stenting. MEDICATIONS: 1. Acetaminophen 650 mg p.o. or OR q.4 hours p.r.n. pain, mild fever. 2. Zyrtec 10 mg daily. 3. Lovenox 40 mg subcu daily. 4. Dilaudid 0.2 to 0.4 q.2 hours p.r.n. severe pain (in review with pharmacist , patient has used very few doses in the last 48 hours). 5. Toradol 15 mg IV q.6 hours p.r.n. for pain or breakthrough (again few doses used). 6. Zofran 4 mg IV q.4 hours p.r.n. nausea or vomiting. 7. Sudafed 30 mg scheduled. 8. Sodium chloride at 75 mL per hour. 9. Tube feeds hanging during my visit. ALLERGIES: No known drug allergies. PHYSICAL EXAMINATION: VITALS: Show a most recent blood pressure 122/70, heart rate of 98, respiratory rate of 18, sating 93% on room air, with a temp of 6.7. GENERAL: The patient is alert and oriented x4 and a good historian, appears comfortable in no acute distress. He does appear somewhat cachectic. HEENT: Pupils are equal and reactive to light and accommodation. Normal extraocular movements. Oropharynx shows normal mucous membranes without mucosal lesions. CHEST: Clear to auscultation bilaterally. I did note an occasional wet cough, but no appreciable lung findings. Patient obviously winces with coughing. CARDIOVASCULAR: Regular rate and rhythm. No murmurs, rubs, or gallops. ABDOMEN: Bowel sounds are present. GJ-tube site dressing was not taken down; however, surrounding tissue shows no erythema and no blood on the dressing. Patient had only minimal tenderness with palpation and no rebound. EXTREMITIES : No clubbing, cyanosis, or edema. NEUROLOGIC: Cranial nerves 2 through 12 appear grossly intact. He moves all extremities spontaneously with good upper extremity strength. Gait not observed. DERM: Partial exam. No rashes or lesions appreciated. PSYCHIATRIC: Affect appropriate. LABORATORY DATA: White blood cell count 7.33, hemoglobin 11.6, hematocrit 35.6 , with platelets of 422. Differential shows 81.8% neutrophils, 9.5% lymphocytes. Chemistry shows sodium 135, potassium 3.4, chloride 104, CO2 of 28 , anion gap of 3, BUN 7, creatinine 0.6, GFR greater than 60, glucose 123, and calcium 7.9. IMAGING: CT findings as discussed in HPI. ASSESSMENT AND PLAN: 1. Locally advanced adenocarcinoma at ampulla of Vater: Patient's intent is to continue immunotherapy. This is echoed in Dr. Sykes's note. I am waiting a call back from Dr. Dominguez to discuss. 2. Recent GJ-tube placement: Patient is tolerating this procedure well. Seems to be getting improved pain control and overall appears to have tolerated the procedure well. 3. Pain control: Patient's pain control appears to be good at present. Suspect he will be transitioning to oral or perhaps G-tube medications at the time of discharge. 4. Palliative care followup: Patient would benefit from followup in the outpatient setting with palliative care. I have discussed this with him, and he would welcome the support. We will arrange for a followup appointment prior to discharge. 5. Advance directives: As per history of present illness, patient has not considered his wishes surrounding resuscitation, nor has he named a MD POA. I will discuss with Case Management here in the hospital the completion of a MD POA form. If they are unable to complete here, we certainly can address in the outpatient setting. Thank you for this consultation and allowing us to participate in the care of this patient. Time spent was 45 minutes, with greater than 50% of this time spent in patient counseling and coordination of care. /[id number]/MODL MTDD
--- NOTE | 2018-07-04 19:24 | SOAPPROG ---
[facility] Progress Note Assessment/Plan: Assessment: 1) Locally advanced adenocarcinoma involving ampulla of vater. 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 03 JUL 2018 = POD# 2 Plan: - post op recovery from gastrojejunostomy/feeding tube placement. currently on J tube feeding tolerating things fairly well. Passing flatus and having small BM. Continue post op management per Dr. Greene. - He has had a good initial response to Immunotherapy treatment (Initial tumor > 9 cm, now < 3 cm). Plan to continue Immunotherapy as an outpatient, given good initial response. Subjective: patient reports feeling fair. He denies any pain. Some bowel distention, passing flatus, one small BM yesterday but otherwise non since the surgery. Tolerating GJ tube feeds fair Objective: Vital Signs Temp Pulse Resp BP Pulse Ox 36.8 C 94 18 121/69 H 93 07/04/18 16:14 07/04/18 16:14 07/04/18 16:14 07/04/18 16:14 07/04/18 16:14 Laboratory Results 07/03/18 04:25 07/04/18 04:38 07/03/18 07/04/18 07/05/18 05:59 05:59 05:59 Intake Total 2908 1845 2302 Output Total 620 2240 950 Balance 2288 -395 1352 General: no acute distress non toxic HEENT: PERRL, no icterus or pallor, oral mucosa without lesions CV: Regular in rate and rhythm without rubs thrills or gallops Chest: Decreased at bases, clear otherwise Abdomen: LUQ J tube with dressing, abdominal distention noted, right inguinal LN palpable ~2cm Neurologic: CN II-XII intact grossly ICD10 Worksheet Patient Problems: Problems Problem Status Onset Fever Acute Gastric outlet obstruction Acute Rigors Acute
[2018-07-05] MEDS: CETIRIZINE 10 MG TAB TUBE SCH (08:47)
[2018-07-05] MEDS: ENOXAPARIN 40 MG/0.4 ML SYR SC SCH (08:48)
[2018-07-05] MEDS: PSEUDOEPHEDRINE LIQ 30 MG/10 ML UDSYR TUBE SCH (08:48)
[2018-07-05] MEDS ORDERED: ACETAMINOPHEN 325 MG TAB TUBE PRN (12:00)
--- NOTE | 2018-07-05 15:33 | ASMTCMCOM ---
CM Note CM Note Notes: Plan of care reviewed. He is informed that the copay of tube feed would be 380.00 dollars a month which is financially not sustainable. CM applied for Your Office Agent for maximum amount to assist with costs. [facility] referral placed to provide alternative options. CM to follow. Plan: Home with HHC and infusion. Date Signed: 07/05/2018 03:33 PM Electronically Signed By:Edna Trejo RN
--- NOTE | 2018-07-05 15:45 | SOAPPROG ---
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 remote history adenocarcinoma of the colon weight loss and malnutrition s/p gastrojejunostomy/feeding jejunostomy 07/02 post op fever-likely pulmonary source (atelectasis) just starting to resolve ileus Plan: Vivonex via J-tube now at goal 75/ml hr. (not on patient's outpatient/[facility] formulary, looking for alternatives) sips of clear liquids, no carbonated beverages 07/01/18 15:11 07/02/18 06:24 07/03/18 10:19 07/04/18 06:23 07/05/18 15:43 Subjective: resting comfortably, last narcotics 07/04 reports passing some liquid stool and gas, denies nausea Objective: Vital Signs Temp Pulse Resp BP Pulse Ox 36.6 C 88 16 140/83 H 96 07/05/18 11:47 07/05/18 11:47 07/05/18 11:47 07/05/18 11:52 07/05/18 11:47 Laboratory Results 07/03/18 04:25 07/05/18 04:50 07/04/18 07/05/18 07/06/18 05:59 05:59 05:59 Intake Total 1845 2302 50 Output Total 2240 1600 Balance -395 702 50 - Time Spent With Patient Time Spent With Patient: 15 - Pending Discharge Pending Discharge Within 24 Hours: No Pending Discharge Within 48 Hours: Yes Pending Discharge Date: 07/07/18 Pending Discharge Time: 11:00 Physical Exam - Physical Exam General Appearance: alert, no apparent distress Respiratory: lungs clear Cardiac/Chest: regular rate, rhythm Abdomen: soft, distended, other (hypoactive bowel sounds, J-tube dressing intact ) Male Genitalia: deferred Neuro/Psych: alert, normal mood/affect, oriented x 3 ICD10 Worksheet Patient Problems: Problems Problem Status Onset Fever Acute Gastric outlet obstruction Acute Rigors Acute
--- NOTE | 2018-07-05 16:49 | HOSPPROG ---
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 Have to trial Jevity tonight for financial reasons. #Hypovolemic hyponatremia: cont IVFs #Hypokalemia: repleting #PNA: LLL PNA. IV Levaquin (Day 2). DC on Cefdinir bc LQ binds to tube feed formula #Normocytic anemia: no indication for transfusion #Hyperbilirubinemia: due to duodenal obstruction #Severe protein caloric malnutrition: Alb 2.6. >7% wt loss in 1 week. Tube feeds #Prior ascending colon adenocarcinoma: s/p resection #CBD obstruction: stent in place #DVT ppx: Lovenox #Inpatient admission for TFs; DC tomorrow if tolerates Subjective: mild abd distension Objective: Vital Signs Temp Pulse Resp BP Pulse Ox 36.4 C 89 16 120/74 98 07/05/18 16:19 07/05/18 16:19 07/05/18 16:19 07/05/18 16:19 07/05/18 16:19 Laboratory Results 07/03/18 04:25 07/05/18 04:50 07/04/18 07/05/18 07/06/18 05:59 05:59 05:59 Intake Total 1845 2302 2434 Output Total 2240 1600 350 Balance -968 246 7814 - Time Spent With Patient Time Spent with Patient: greater than 35 minutes Time Spent with Patient: Greater than 35 minutes spent on this patients care, greater than 50% of time spent counseling, educating, and coordinating care regarding the above mentioned plan. - Physical Exam Constitutional: cachectic Eyes: PERRL Ears, Nose, Mouth, Throat: moist mucous membranes Cardiovascular: regular rate and rhythym Respiratory: other (G-J tube in place. Mild abd distension) Gastrointestinal: normoactive bowel sounds, distension Genitourinary: no bladder fullness Skin: warm Musculoskeletal: full muscle strength Neurologic: CN II-XII Intact Psychiatric: flat affect ICD10 Worksheet Patient Problems: Problems Problem Status Onset Fever Acute Gastric outlet obstruction Acute Rigors Acute
[2018-07-06] MEDS: ONDANSETRON 4 MG/2 ML VIAL IVP PRN ×2 (01:53→15:31)
[2018-07-06] MEDS: ENOXAPARIN 40 MG/0.4 ML SYR SC SCH (09:38)
[2018-07-06] MEDS: CETIRIZINE 10 MG TAB TUBE SCH (09:39)
--- NOTE | 2018-07-06 12:15 | HOSPPROG ---
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 Have to trial Jevity tonight for financial reasons. #Nausea, abd distention -Trial of Reglan -cont tube feeds #Hypovolemic hyponatremia: cont IVFs #Hypokalemia: repleting #PNA: LLL PNA. IV Levaquin (Day 2). DC on Cefdinir bc LQ binds to tube feed formula #Normocytic anemia: no indication for transfusion #Hyperbilirubinemia: due to duodenal obstruction #Severe protein caloric malnutrition: Alb 2.6. >7% wt loss in 1 week. Tube feeds #Prior ascending colon adenocarcinoma: s/p resection #CBD obstruction: stent in place #DVT ppx: Lovenox #Inpatient admission for TFs; start Reglan today. cont TF, can hopefully titrate to goal and monitor overnight to ensure he tolerates. D/C in a.m. if able to Subjective: no cp or sob. some emesis last night. reports abd distention. Objective: Vital Signs Temp Pulse Resp BP Pulse Ox 36.3 C 102 H 16 132/79 H 95 07/06/18 11:59 07/06/18 12:04 07/06/18 12:04 07/06/18 12:04 07/06/18 12:04 Laboratory Results 07/03/18 04:25 07/05/18 04:50 07/05/18 07/06/18 07/07/18 05:59 05:59 05:59 Intake Total 2302 2634 Output Total 1600 850 470 Balance 702 1784 -470 - Physical Exam Constitutional: no apparent distress Eyes: PERRL, EOMI Ears, Nose, Mouth, Throat: moist mucous membranes Cardiovascular: No edema Respiratory: no respiratory distress, no rales or rhonchi, clear to auscultation Gastrointestinal: normoactive bowel sounds, soft, non-tender abdomen, distension Skin: warm Neurologic: AAOx3 Psychiatric: interacting appropriately, not anxious, not encephalopathic Lymph, Heme, Immunologic: No petechiae ICD10 Worksheet Patient Problems: Problems Problem Status Onset Fever Acute Gastric outlet obstruction Acute Rigors Acute
--- NOTE | 2018-07-06 12:24 | SOAPPROG ---
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 remote history adenocarcinoma of the colon weight loss and malnutrition s/p gastrojejunostomy/feeding jejunostomy 07/02 post op fever-likely pulmonary source (atelectasis) resolved just starting to resolve ileus Plan: Jevity via J-tube now at goal 75/ml hr. sips of clear liquids, no carbonated beverages anticipate discharge to [facility] 07/01/18 15:11 07/02/18 06:24 07/03/18 10:19 07/04/18 06:23 07/05/18 15:43 07/06/18 12:54 Subjective: awake and alert/mild incisional pain emesis x 1 last PM Objective: Vital Signs Temp Pulse Resp BP Pulse Ox 36.3 C 102 H 16 132/79 H 95 07/06/18 11:59 07/06/18 12:04 07/06/18 12:04 07/06/18 12:04 07/06/18 12:04 Laboratory Results 07/03/18 04:25 07/05/18 04:50 07/05/18 07/06/18 07/07/18 05:59 05:59 05:59 Intake Total 2302 2634 Output Total 1600 850 470 Balance 702 1784 -470 - Pending Discharge Pending Discharge Within 24 Hours: No Pending Discharge Within 48 Hours: Yes Pending Discharge Date: 07/08/18 Pending Discharge Time: 11:00 Physical Exam - Physical Exam General Appearance: alert, no apparent distress, thin Abdomen: normal bowel sounds, soft, distended, other (JT site uncomplicated) Male Genitalia: deferred Rectal: deferred Skin: warm/dry Extremities: normal range of motion, non-tender Neuro/Psych: alert, normal mood/affect, oriented x 3 ICD10 Worksheet Patient Problems: Problems Problem Status Onset Fever Acute Gastric outlet obstruction Acute Rigors Acute
--- NOTE | 2018-07-06 12:46 | ASMTCMCOM ---
CM Note CM Note Notes: Met with pt, agreeable with HHC through [facility]. CM submit referral. Mary Jo to follow-up with feeds. CM to follow. Plan: [facility] and [facility] Health RN Date Signed: 07/06/2018 12:45 PM Electronically Signed By:RADHA Castañeda
[2018-07-06] MEDS: METOCLOPRAMIDE 10 MG/2 ML VIAL IVP SCH ×2 (14:41→21:44)
[2018-07-07] MEDS: METOCLOPRAMIDE 10 MG/2 ML VIAL IVP SCH ×3 (05:13→21:34)
[2018-07-07] MEDS: ONDANSETRON 4 MG/2 ML VIAL IVP PRN ×3 (05:34→23:09)
[2018-07-07] MEDS: ENOXAPARIN 40 MG/0.4 ML SYR SC SCH (08:23)
[2018-07-07] MEDS: CETIRIZINE 10 MG TAB TUBE SCH (08:23)
--- NOTE | 2018-07-07 10:13 | SOAPPROG ---
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 remote history adenocarcinoma of the colon weight loss and malnutrition s/p gastrojejunostomy/feeding jejunostomy 07/02 post op fever-likely pulmonary source (atelectasis) resolved increasing distention and emesis Plan: KUB now Jevity via J-tube now at goal 75/ml hr. sips of clear liquids, no carbonated beverages anticipate discharge to SNF when ileus resolves 07/01/18 15:11 07/02/18 06:24 07/03/18 10:19 07/04/18 06:23 07/05/18 15:43 07/06/18 12:54 07/07/18 10:43 Subjective: emesis this AM/still having stools/feels bloated Objective: Vital Signs Temp Pulse Resp BP Pulse Ox 36.7 C 99 18 126/78 H 93 07/07/18 07:18 07/07/18 09:26 07/07/18 07:18 07/07/18 09:26 07/07/18 07:18 Laboratory Results 07/03/18 04:25 07/05/18 04:50 07/06/18 07/07/18 07/08/18 05:59 05:59 05:59 Intake Total 2634 2019 Output Total 850 600 Balance 1784 1419 Physical Exam - Physical Exam General Appearance: alert, thin Respiratory: lungs clear, decreased breath sounds Cardiac/Chest: normal peripheral pulses Abdomen: normal bowel sounds, soft, distended, other (tympanitic) Male Genitalia: deferred Rectal: deferred Neuro/Psych: normal mood/affect, oriented x 3 ICD10 Worksheet Patient Problems: Problems Problem Status Onset Fever Acute Gastric outlet obstruction Acute Rigors Acute
--- NOTE | 2018-07-07 11:46 | ASMTCMCOM ---
CM Note CM Note Notes: Patient w likely ileus/SBO. Tube feeds have been held. I alerted [facility] and [facility]. They will continue to follow. Date Signed: 07/07/2018 11:45 AM Electronically Signed By:Justine Llanes RN
[2018-07-07] MEDS: NS 1,000 ML IV SCH (15:18)
--- NOTE | 2018-07-07 16:33 | HOSPPROG ---
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 Jevity #Nausea, abd distention with XR to suggest Ileus #Hypovolemic hyponatremia: #Hypokalemia: repleting #PNA: LLL PNA. IV Levaquin (Day 2). DC on Cefdinir bc LQ binds to tube feed formula #Normocytic anemia: no indication for transfusion #Hyperbilirubinemia: due to duodenal obstruction #Severe protein caloric malnutrition: Alb 2.6. >7% wt loss in 1 week. Tube feeds #Prior ascending colon adenocarcinoma: s/p resection #CBD obstruction: stent in place #DVT ppx: Lovenox Plan: hold tube feeds need for ileus to resolve cont all other Subjective: abd has become more distended Objective: Vital Signs Temp Pulse Resp BP Pulse Ox 36.6 C 98 18 122/76 H 94 07/07/18 11:56 07/07/18 11:56 07/07/18 11:56 07/07/18 11:56 07/07/18 11:56 Laboratory Results 07/03/18 04:25 07/05/18 04:50 07/06/18 07/07/18 07/08/18 05:59 05:59 05:59 Intake Total 2634 2019 Output Total 850 600 Balance 1784 1419 - Physical Exam Constitutional: no apparent distress Eyes: PERRL, EOMI Ears, Nose, Mouth, Throat: moist mucous membranes, hearing normal Cardiovascular: regular rate and rhythym, No edema Respiratory: no respiratory distress, no rales or rhonchi, clear to auscultation Gastrointestinal: distension, No tenderness Skin: warm Neurologic: AAOx3 Psychiatric: interacting appropriately, not anxious, not encephalopathic ICD10 Worksheet Patient Problems: Problems Problem Status Onset Fever Acute Gastric outlet obstruction Acute Rigors Acute
[2018-07-08] MEDS ORDERED: LORazepam 2 MG/ML INJ IVP PRN (02:24)
[2018-07-08] MEDS: METOCLOPRAMIDE 10 MG/2 ML VIAL IVP SCH ×3 (06:09→22:13)
--- NOTE | 2018-07-08 07:33 | SOAPPROG ---
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 [facility] when ileus resolves 07/01/18 15:11 07/02/18 06:24 07/03/18 10:19 07/04/18 06:23 07/05/18 15:43 07/06/18 12:54 07/07/18 10:43 07/08/18 07:32 Subjective: small amount of emesis last PM/still passing gas and having some liquid stool Objective: Vital Signs Temp Pulse Resp BP Pulse Ox 36.6 C 106 H 16 116/78 93 07/08/18 04:00 07/08/18 04:00 07/08/18 04:00 07/08/18 04:00 07/08/18 04:00 Laboratory Results 07/03/18 04:25 07/08/18 06:15 07/07/18 07/08/18 07/09/18 05:59 05:59 05:59 Intake Total 2019 450 Output Total 600 250 Balance 1419 200 Physical Exam - Physical Exam General Appearance: no apparent distress Abdomen: soft, distended, other (incision site o.k./JT functioning) Skin: warm/dry Neuro/Psych: alert, normal mood/affect ICD10 Worksheet Patient Problems: Problems Problem Status Onset Fever Acute Gastric outlet obstruction Acute Rigors Acute
[2018-07-08] MEDS: ENOXAPARIN 40 MG/0.4 ML SYR SC SCH (09:50)
[2018-07-08] MEDS: CETIRIZINE 10 MG TAB TUBE SCH (09:50)
[2018-07-08] MEDS: NS 1,000 ML IV SCH (13:01)
--- NOTE | 2018-07-08 14:15 | HOSPPROG ---
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 #Nausea, abd distention with XR to suggest Ileus #Hypovolemic hyponatremia: #Hypokalemia: repleting #PNA: LLL PNA. IV Levaquin. If DC soon would use Augment as it will not bind to tube feed formula #Normocytic anemia: no indication for transfusion #Hyperbilirubinemia: due to duodenal obstruction #Severe protein caloric malnutrition: Alb 2.6. >7% wt loss in 1 week. 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 Tube feeds were restarted yesterday afternoon and by the evening he was having emesis. They have been turned off. If Ok with surgery, would continue bowel rest for now and restart tube feeds tomorrow if abd exam is better. He is having BM mostly diarrhea which argues against obstruction. He will have the diarrhea sent for C-Diff Will recheck a KUB in a.m. Surgery following IVF while tube fees are off Subjective: reports nausea and vomiting and distended abdomen Objective: Vital Signs Temp Pulse Resp BP Pulse Ox 36.4 C 98 16 119/72 92 07/08/18 11:46 07/08/18 11:48 07/08/18 11:46 07/08/18 11:48 07/08/18 11:46 Laboratory Results 07/03/18 04:25 07/08/18 06:15 07/07/18 07/08/18 07/09/18 05:59 05:59 05:59 Intake Total 2019 450 Output Total 600 250 Balance 1419 200 - Physical Exam Constitutional: no apparent distress Eyes: PERRL, EOMI Ears, Nose, Mouth, Throat: moist mucous membranes, hearing normal Cardiovascular: regular rate and rhythym, No edema Respiratory: no respiratory distress, no rales or rhonchi, clear to auscultation Gastrointestinal: distension, No normoactive bowel sounds (decreased bs), No soft, non-tender abdomen Skin: warm Musculoskeletal: generalized weakness Neurologic: AAOx3 Psychiatric: interacting appropriately, not anxious Lymph, Heme, Immunologic: No petechiae ICD10 Worksheet Patient Problems: Problems Problem Status Onset Fever Acute Gastric outlet obstruction Acute Rigors Acute
--- NOTE | 2018-07-08 15:39 | ASMTCMCOM ---
CM Note CM Note Notes: Patient discussed during medical rounds, bowel rest recommended until 07/09/18. Susi Camargo stopped by and dropped off teaching info. CM to follow. Date Signed: 07/08/2018 03:39 PM Electronically Signed By:Angeles Coughlin
[2018-07-09] MEDS: NS 1,000 ML IV SCH ×2 (02:55→17:04)
[2018-07-09] MEDS: METOCLOPRAMIDE 10 MG/2 ML VIAL IVP SCH ×3 (05:52→21:25)
--- NOTE | 2018-07-09 08:52 | SOAPPROG ---
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 [facility] when ileus resolves 07/01/18 15:11 07/02/18 06:24 07/03/18 10:19 07/04/18 06:23 07/05/18 15:43 07/06/18 12:54 07/07/18 10:43 07/08/18 07:32 07/09/18 08:50 Subjective: no further emesis/lots of diarrhea tube feeding held Objective: Vital Signs Temp Pulse Resp BP Pulse Ox 36.5 C 101 H 16 133/77 H 94 07/09/18 07:24 07/09/18 07:24 07/09/18 07:24 07/09/18 07:24 07/09/18 07:24 Laboratory Results 07/03/18 04:25 07/08/18 06:15 07/08/18 07/09/18 07/10/18 05:59 05:59 05:59 Intake Total 450 1913 Output Total 250 650 Balance 200 1263 - Pending Discharge Pending Discharge Within 24 Hours: No Pending Discharge Within 48 Hours: No Physical Exam - Physical Exam General Appearance: mild distress Abdomen: non-tender, soft, distended, other (incision o.k./active bowel sounds) ICD10 Worksheet Patient Problems: Problems Problem Status Onset Fever Acute Gastric outlet obstruction Acute Rigors Acute
[2018-07-09] MEDS: ENOXAPARIN 40 MG/0.4 ML SYR SC SCH (11:30)
[2018-07-09] MEDS: CETIRIZINE 10 MG TAB TUBE SCH (11:32)
--- NOTE | 2018-07-09 12:47 | HOSPPROG ---
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 -abd xray from today does show e/o new free air bilaterally under the diaphragms , though this is not c/w his exam which is benign, reviewed with Dr. Greene who is aware and plans to continue monitoring for development of peritoneal signs but do not suspect bowel perforation currently -currently appears to be improved, tolerating PO #ileus: improvement in n/v and tolerating po but continues to have diminished bowel sounds and dilated SB loops on abd xray, continue to monitor #Hypovolemic hyponatremia:improving, most recent Na 134 #Hypokalemia: repleting #PNA: LLL PNA. IV Levaquin day 10/21, clinically improved and will plan to dc abx tomorrow # CBD obstruction: with LFTs elevated in cholestatic picture but trending down overall, does have hx of CBD stent #Normocytic anemia: no indication for transfusion #Severe protein caloric malnutrition: Alb 2.6. >7% wt loss in 1 week. Tube feeds held currently as patient now tolerating diet. #Prior ascending colon adenocarcinoma: s/p resection #DVT ppx: Lovenox # FC # IP status, suspect patient will be ready for dc in coming days to SNF if continues to tolerate diet and no significant complications Patient new to my care. Old records reviewed and summarized as above. Care plan reviewed with surgery and radiology as above. Subjective: patient notes that he ate all of his breakfast today without any significant issues, he has no increased pain or n/v Objective: Vital Signs Temp Pulse Resp BP Pulse Ox 36.7 C 106 H 16 140/84 H 94 07/09/18 11:25 07/09/18 11:29 07/09/18 11:29 07/09/18 11:29 07/09/18 11:29 Laboratory Results 07/03/18 04:25 07/08/18 06:15 07/08/18 07/09/18 07/10/18 05:59 05:59 05:59 Intake Total 450 1913 Output Total 250 650 225 Balance 200 1263 -225 chronically ill appearing anicteric op clear tachy regular no mrg cta with dec bs at bases soft dec bs min ttp j tube site cdi no cce warm dry well perfused oriented appropriate - Time Spent With Patient Time Spent with Patient: greater than 35 minutes Time Spent with Patient: Greater than 35 minutes spent on this patients care, greater than 50% of time spent counseling, educating, and coordinating care regarding the above mentioned plan. ICD10 Worksheet Patient Problems: Problems Problem Status Onset Gastric outlet obstruction Acute Rigors Acute Fever Acute
--- NOTE | 2018-07-09 20:30 | SOAPPROG ---
Downtime Inpatient MD Late Entry SOAP Note: PM visit: tolerated soft diet of yogurt, cream of wheat, scrambled eggs loose stools improved exam: abd: less distended/non-tender, incision and JT site uncomplicated KUB: distended bowel and persistent free air Imp: resolving post op ileus with intolerance of TF formulas tried thus far tolerating diet advance Rec: continue soft diet I will leave JT in for another 4-5 weeks and restart tube feedings only if he does not tolerate diet advance. Yusra Greene MD, FACS
[2018-07-10] MEDS: METOCLOPRAMIDE 10 MG/2 ML VIAL IVP SCH (05:33)
[2018-07-10 05:56] LABS: PLATELET COUNT 403 10^3/uL (150-400)
[2018-07-10] MEDS: NS 1,000 ML IV SCH (07:49)
--- NOTE | 2018-07-10 07:49 | SOAPPROG ---
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 weight loss and malnutrition s/p gastrojejunostomy/feeding jejunostomy 07/02 intolerant of JT feeding with Vivonex, Jevity, Anny Clinically improved and tolerating diet advance Plan: trial of diet advance, no carbonated beverages anticipate discharge to home with [facility] tomorrow 07/01/18 15:11 07/02/18 06:24 07/03/18 10:19 07/04/18 06:23 07/05/18 15:43 07/06/18 12:54 07/07/18 10:43 07/08/18 07:32 07/09/18 08:50 07/10/18 07:47 Objective: Vital Signs Temp Pulse Resp BP Pulse Ox 36.6 C 86 16 132/75 H 94 07/10/18 07:36 07/10/18 07:36 07/10/18 07:36 07/10/18 07:36 07/10/18 07:36 Laboratory Results 07/10/18 05:40 07/10/18 05:40 07/09/18 07/10/18 07/11/18 05:59 05:59 05:59 Intake Total 1913 1270 Output Total 650 2185 Balance 1263 -1455 - Pending Discharge Pending Discharge Within 24 Hours: Yes Pending Discharge Date: 07/11/18 Pending Discharge Time: 11:00 Physical Exam - Physical Exam General Appearance: alert, no apparent distress Abdomen: normal bowel sounds, soft, distended, other (incision o.k./JT exit site redressed) ICD10 Worksheet Patient Problems: Problems Problem Status Onset Fever Acute Gastric outlet obstruction Acute Rigors Acute
[2018-07-10] MEDS: CETIRIZINE 10 MG TAB TUBE SCH (10:05)
[2018-07-10] MEDS: ENOXAPARIN 40 MG/0.4 ML SYR SC SCH (10:06)
[2018-07-10] MEDS: METOCLOPRAMIDE 10 MG TAB PO SCH ×3 (11:39→21:14)
--- NOTE | 2018-07-10 14:21 | HOSPPROG ---
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 Has not tolerated TF but is now tolerating diet. So long as continues to tolerate diet will dc likely on 07/11, plan to leave J tube in place for 1 month to be sure he continues to tolerate PO. Dr. Greene following. #ileus: improvement in n/v and tolerating po as above #Hypovolemic hyponatremia:improved, Na has been stable at 134 #Hypokalemia: s/p repletion #PNA: LLL PNA. IV Levaquin day 11/20, will monitor off of abx after today, no respiratory complaints currently # CBD obstruction: with LFTs elevated in cholestatic picture but trending down overall, does have hx of CBD stent #Normocytic anemia: no indication for transfusion #Severe protein caloric malnutrition: Alb 2.8, BMI 21. >7% wt loss in 1 week. Tube feeds held currently as patient now tolerating diet. #Prior ascending colon adenocarcinoma: s/p resection #DVT ppx: Lovenox # FC # IP status, plan to dc home with home health on 07/11 so long as continues to tolerate diet Subjective: no significant overnight events, patient states he has still been doing ok eating, he is a bit weak but has been able to ambulate Objective: Vital Signs Temp Pulse Resp BP Pulse Ox 36.7 C 102 H 16 138/83 H 95 07/10/18 11:15 07/10/18 11:19 07/10/18 11:19 07/10/18 11:19 07/10/18 11:19 Laboratory Results 07/10/18 05:40 07/10/18 05:40 07/09/18 07/10/18 07/11/18 05:59 05:59 05:59 Intake Total 1913 1270 250 Output Total 650 2725 1300 Balance 1263 -1455 -1050 chronically ill appearing anicteric op clear tachy regular no mrg cta with dec bs at bases soft dec bs min ttp j tube site cdi no cce warm dry well perfused oriented appropriate ICD10 Worksheet Patient Problems: Problems Problem Status Onset Fever Acute Gastric outlet obstruction Acute Rigors Acute
[2018-07-11] MEDS: METOCLOPRAMIDE 10 MG TAB PO SCH (05:37)
--- NOTE | 2018-07-11 06:41 | SOAPPROG ---
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 to give all meds orally/flush JT daily to maintain/will remove as outpatient trial of diet advance, no carbonated beverages anticipate discharge to home with [facility]? today? FU my office outpatient for JT and wound management FU Dr. Dominguez to discuss timing of chemo 07/01/18 15:11 07/02/18 06:24 07/03/18 10:19 07/04/18 06:23 07/05/18 15:43 07/06/18 12:54 07/07/18 10:43 07/08/18 07:32 07/09/18 08:50 07/10/18 07:47 07/11/18 06:39 Subjective: feeling better/tolerated soft diet bowel movement more formed Objective: Vital Signs Temp Pulse Resp BP Pulse Ox 36.7 C 95 13 126/79 H 94 07/11/18 04:00 07/11/18 04:00 07/11/18 04:00 07/11/18 04:00 07/11/18 04:00 Laboratory Results 07/10/18 05:40 07/10/18 05:40 07/10/18 07/11/18 07/12/18 05:59 05:59 05:59 Intake Total 1270 1559 Output Total 6780 7370 [facility] -1455 -91 Physical Exam - Physical Exam General Appearance: alert, no apparent distress Abdomen: non-tender, soft, other (incision o.k./tres removed, JT redressed) ICD10 Worksheet Patient Problems: Problems Problem Status Onset Fever Acute Gastric outlet obstruction Acute Rigors Acute
[2018-07-11] MEDS: ENOXAPARIN 40 MG/0.4 ML SYR SC SCH (08:33)
[2018-07-11] MEDS: CETIRIZINE 10 MG TAB TUBE SCH (08:33)
[2018-07-11 11:06] VITALS: BP 112/70
[2018-07-11] MEDS ORDERED: METOCLOPRAMIDE 10 MG TAB TUBE SCH (12:00)
--- NOTE | 2018-07-11 13:11 | HOSPPROG ---
Hospitalist Progress Note Assessment/Plan: 67 yo M with ampullary adenocarcinoma pw acute on chronic duodenal obstruction with malnutrition and inability to tolerate much PO Locally-advanced adenocarcinoma of ampulla of vater responding to Immunotherapy--initially was 9cm mass and now < 3 cm, will f/u with oncology after discharge for ongoing manabement acute on chronic duodenal obstruction: due to above gastrojejunostomy with feeding J tube placed 07/02, has prior duodenal stent. Has not tolerated TF but is now tolerating diet. tolerating diet ileus: improvement in n/v and tolerating po as above Hypovolemic hyponatremia:improved, Na has been stable at 134 Hypokalemia: s/p repletion PNA: LLL PNA. IV Levaquin day 11/20, will monitor off of abx after today, no respiratory complaints currently CBD obstruction: with LFTs elevated in cholestatic picture but trending down overall, does have hx of CBD stent Normocytic anemia: no indication for transfusion Severe protein caloric malnutrition: Alb 2.8, BMI 21. >7% wt loss in 1 week. Tube feeds held currently as patient now tolerating diet. Prior ascending colon adenocarcinoma: s/p resection DVT ppx: Lovenox FC home today > 30 minutes Subjective: eating well. ready for dc Objective: Vital Signs Temp Pulse Resp BP Pulse Ox 36.7 C 90 18 112/70 94 07/11/18 11:03 07/11/18 11:03 07/11/18 11:03 07/11/18 11:03 07/11/18 11:03 Laboratory Results 07/10/18 05:40 07/10/18 05:40 07/10/18 07/11/18 07/12/18 05:59 05:59 05:59 Intake Total 1270 1559 Output Total 5625 1650 Balance -1455 -91 - Physical Exam Constitutional: no apparent distress, appears nourished Eyes: PERRL, anicteric sclera Ears, Nose, Mouth, Throat: moist mucous membranes, hearing normal Cardiovascular: regular rate and rhythym, no murmur, rub, or gallop Respiratory: no respiratory distress, no rales or rhonchi, other (LLL clear) Gastrointestinal: normoactive bowel sounds, other (J tube c/d/i) Genitourinary: no bladder fullness, No monroy in urethra Skin: warm, normal color Musculoskeletal: full muscle strength Neurologic: AAOx3 Psychiatric: interacting appropriately ICD10 Worksheet Patient Problems: Problems Problem Status Onset Fever Acute Gastric outlet obstruction Acute Rigors Acute
--- NOTE | 2018-07-11 13:16 | PDIAF ---
- Diagnosis Diagnosis: cancer of ampulla of vater Code Status: Full Code - Medication Management Discharge Medications: electronically signed and located in the Home Medication List. - Orders Services needed: Registered Nurse Isolation Type: None - Follow Up Care Current Providers and Referrals: Víctor Dominguez MD [Primary Care Provider] -
--- NOTE | 2018-07-11 13:42 | ASMTLACE ---
LACE Length of stay for Answers: 7-13 days current admission Acuity / Level of Answers: Yes Care: Did the patient have an inpatient admission? Comorbidities - select Answers: Any tumor (including all that apply lymphoma or leukemia) # of Emergency department Answers: 3-4 visits in the last 6 months Score: 13 Date Signed: 07/11/2018 01:42 PM Electronically Signed By:Edna Trejo RN
--- NOTE | 2018-07-11 13:45 | ASMTDCNOTE ---
Case Management Discharge Discharge Order Complete? Answers: Yes Patient to Obtain Answers: Independently Medications Family Notified Answers: Yes Discharge Comments Notes: Patient tolerating oral diet. medically cleared for discharge to home. He will have HHC RN via [facility]. F/U appointments scheduled. Date Signed: 07/11/2018 01:44 PM Electronically Signed By:Edna Trejo RN
--- NOTE | 2018-07-11 21:53 | GDS ---
[f rep st] DISCHARGE SUMMARY DISCHARGE DIAGNOSES: 1. Carcinoma of the ampulla of Vater, status post duodenal and common bile duct stent performed on p rior admission. 2. Severe protein calorie malnutrition. 3. Abdominal pain secondary to possible obstruction. 4. Remote history of colon cancer. HOSPITAL COURSE: Please see admission history and physical by Dr. Adhikari. The patient presented wit h abdominal pain, as a direct admit. CT scan showed a partially obstructed duodenal stent, central m ass along the duodenal stent, inferior pancreatic head. The patient was seen by Oncology, General Salgado rgery and GI. GI performed a scope on the revealing mass pre-pyloric as well as a known duodena l location of cancer. Surgery took him for a J-tube which was placed on the . He had a difficul t time tolerating tube feeds. Ultimately, the patient was tolerating an oral diet and has been eatin g well without difficulty. During his hospitalization, he was treated for a left lower lobe pneumoni a. When I examined him, he was on room air and had a clear left lung field. He was discharged home with home care for RN. The patient declined pain medicines when asked. He has outpatient followup with Oncology. He was given the warning signs for J-tube infection. He also schroeder s outpatient followup with Dr. Masoud Greene. /[id number]/MODL
--- NOTE | 2018-07-12 09:44 | ASDISCHSUM ---
Discharge Information Plan Status:Home with Home Health Medically Cleared to Leave:07/10/2018 Discharge Date:07/11/2018 01:48 PM D/C Disposition:Home Health Service [facility] D/C Disposition:Home Health Service Projected Discharge Date:07/05/2018 11:00 AM Transportation at D/C: Discharge Delay Reason: Follow-Up Date:07/05/2018 11:00 AM Discharge Slot: Final Diagnosis: Placement Information Referral Type:Home Infusion Referral ID:[id number] Provider Name: Address 1: Phone Number: Address 2: Fax Number: City: Selection Factors: State: Referral Type:Palliative Care Referral ID:[id number] Provider Name: Address 1: Phone Number: Address 2: Fax Number: City: Selection Factors: State: Referral Type:*Home Health Care Services Referral ID:[id number] [facility] [address] Address 2: [facility]:[place] Selection Factors: State:[place] Patient Contact Information Contact Name:HANNA Relationship:Friend Address:[address] City:[place] Alternate Phone: State/Zip Code:[place] [address] Email: Financial Information Financial Class:Medicare Advantage Plans Primary Plan Desc:[employer] Primary Plan Number:[id number] Secondary Plan Desc: Secondary Plan Number: Assessment Information LACE LACE Length of stay for Answers: 7-13 days current admission Acuity / Level of Answers: Yes Care: Did the patient have an inpatient admission? Comorbidities - select Answers: Any tumor (including all that apply lymphoma or leukemia) # of Emergency department Answers: 3-4 visits in the last 6 months Score: 13 Date Signed: 07/11/2018 01:42 PM Electronically Signed By:Edna Trejo RN [facility] CM Progress Note CM Note CM Note Notes: Patient admitted for n/v and inability to take in any liquids/solids. He has a history of colon cancer and duodenal stent placement one year ago. After consults by Oncology, Surgery, and GI, it's been determined that he has an obstruction of the stent. He will have an upper endoscopy today. Patient is normally independent. Lives at home w girlfriend. After two admissions in May, he went home without any needs/services. Given the uncertainty of his medical needs right now, Case Management will continue to follow. Current CM Discharge plan: TBD Date Signed: 07/01/2018 08:47 AM Electronically Signed By:Justine Llanes RN [facility] CM Progress Note CM Note CM Note Notes: Chart reviewed. Patient recovering from gastrojejunostomy placement. CM to follow for needs, will place referral for home infusion company as he will need feedings. Plan: Likely home with home infusion and [facility] RN. Date Signed: 07/03/2018 09:47 AM Electronically Signed By:Edna Trejo RN [facility] CM Progress Note CM Note CM Note Notes: Referral placed n [employer] for home infusion to supply feeding formula and tubing. CM to follow. Plan: Likely home with tube feedings. Date Signed: 07/04/2018 08:37 AM Electronically Signed By:Edna Trejo RN [facility] CM Progress Note CM Note CM Note Notes: Plan of care reviewed. He is informed that the copay of tube feed would be 380.00 dollars a month which is financially not sustainable. CM applied for [employer] for maximum amount to assist with costs. [employer] referral placed to provide alternative options. CM to follow. Plan: Home with HHC and infusion. Date Signed: 07/05/2018 03:33 PM Electronically Signed By:Edna Treoj RN [facility] CM Progress Note CM Note CM Note Notes: Met with pt, agreeable with HHC through [facility]. CM submit referral. [employer] to follow-up with feeds. CM to follow. Plan: [facility]fusion and [facility] Home Health RN Date Signed: 07/06/2018 12:45 PM Electronically Signed By:RADHA Castañeda [facility] CM Progress Note CM Note CM Note Notes: Patient w likely ileus/SBO. Tube feeds have been held. I alerted [facility] and [facility]. They will continue to follow. Date Signed: 07/07/2018 11:45 AM Electronically Signed By:Justine Llanes RN [facility] CM Progress Note CM Note CM Note Notes: Patient discussed during medical rounds, bowel rest recommended until 07/09/18. Susi with [facility] stopped by and dropped off teaching info. CM to follow. Date Signed: 07/08/2018 03:39 PM Electronically Signed By:Angeles Coughlin Case Management Discharge Plan Note Case Management Discharge Discharge Order Complete? Answers: Yes Patient to Obtain Answers: Independently Medications Family Notified Answers: Yes Discharge Comments Notes: Patient tolerating oral diet. medically cleared for discharge to home. He will have C RN via [facility]. F/U appointments scheduled. Date Signed: 07/11/2018 01:44 PM Electronically Signed By:Edna Trejo RN Intervention Information
--- NOTE | 2018-07-13 15:17 | GOP ---
[f rep st] OPERATIVE REPORT DATE OF OPERATION: 07/02/2018 SURGEON: Efra Greene MD, FACS ANESTHESIA: General endotracheal. ANESTHESIOLOGIST: Agustina Santamaria MD. PREOPERATIVE DIAGNOSIS: 1. Ampullary carcinoma with duodenal obstruction. 2. Weight loss. POSTOPERATIVE DIAGNOSIS: 1. Ampullary carcinoma with duodenal obstruction. 2. Weight loss. PROCEDURE PERFORMED: 1. Exploratory laparotomy. 2. Gastrojejunostomy. 3. Feeding tube jejunostomy. FINDINGS: Adhesions from prior right colectomy with omental adhesions to the anterior abdominal wall, firm mass in the wall of the duodenum and head of the pancreas with a palpable stent in position previous endoscopy showing occlusion of the stent secondary to tumor ingrowth and no evidence of distal bowel obstruction. ESTIMATED BLOOD LOSS: 10 mL. DESCRIPTION OF PROCEDURE: After informed consent was obtained, the patient was brought to the operating room and placed under general anesthesia. The abdomen was prepped and draped in the usual fashion. Patient received 2 g of cefazolin preoperatively, and a time-out and identification of the patient were performed before proceeding. An upper midline incision was made with a scalpel and carried through skin and subcutaneous tissues after infiltrating the planned incision site with 0.25% Marcaine. Peritoneal cavity was entered and explored. There was no ascites. No peritoneal carcinomatosis was noted. The adhesions between the omentum and anterior abdominal wall were taken down, and the stomach was mobilized. The prior ileal colostomy had been made to the proximal transverse colon, and this lay underneath the incision. The 4th portion of the duodenum was identified and the jejunum liberated from adhesions for the next 30 cm or so. A loop jejunostomy was planned. The 1st loop of jejunum was brought up and approximately 30 cm distal to the ligament of Treitz, the posterior layer of the anastomosis between the jejunal loop and the antrum of the stomach were created with interrupted 3-0 Vicryl sutures. Parallel enterotomies were then made and the posterior inner row of the anastomosis performed with continuous running 3-0 Vicryl suture. This was continued anteriorly in a mucosal-inverting fashion and the final anterior outer row of the anastomosis performed with interrupted 3-0 Vicryl sutures. Distal to the gastrojejunostomy approximately 20 cm, a tube jejunostomy was brought through the abdominal wall and passed through a pursestring and enterotomy in that portion of the jejunum. The pursestring was secured. The tube was further secured to the abdominal wall with a pledget and 3-0 Prolene suture. The jejunum was sutured to the anterior abdominal wall circumferentially with interrupted 3-0 Vicryl sutures. Upon completion, the anastomosis appeared intact without undue tension, and the tube was well secured. The midline fascia was closed with 0 PDS suture. Skin was closed with tres. Sterile dressings were applied. The patient was returned to the recovery room in satisfactory condition. Needle, sponge, and instrument count were correct. COMPLICATIONS: None. /[id number]/MODL MTDD
== END 2018-07-11 13:48 | disposition home health service (06) | DRG 326 ==
LOC: F1N 08:41 → INTOOBSV 08:41 → OBSVTOIN 07-01 16:16
PROVIDERS: ADMIT Internal Medicine; ATTEND Internal Medicine
PROC: 0DJ08ZZ Inspection of Upper Intestinal Tract, Via Natural or Artificial Opening Endoscopic (ICD-10-PCS; 2018-07-01)
PROC: 0D160ZA Bypass Stomach to Jejunum, Open Approach (ICD-10-PCS; principal; 2018-07-02 08:00)
PROC: 0D1 Gastrointestinal System, Bypass (ICD-10-PCS; principal; 2018-07-02 08:00)
DX: C17.0 Malignant neoplasm of duodenum (principal); E43 Unspecified severe protein-calorie malnutrition; J18.1 Lobar pneumonia, unspecified organism; C24.1 Malignant neoplasm of ampulla of Vater; Z85.038 Personal history of other malignant neoplasm of large intestine; Z87.891 Personal history of nicotine dependence
CPT/HCPCS: 84134-90; G0378; J0330; J0690; J1100; J1170; J1650; J1885; J1956; J2060; J2250; J2405; J2704; J2710; J2765; J3010; J3480; Q9967